=== PATIENT | female | born 1990 | race Caucasian/White ===

== ENCOUNTER → 2020-04-25 10:49 | Outpatient (CLI) | payer BC, SELFPAY ==
--- NOTE | ~2020-04-25 | US_ITS ---
EXAMINATION: US thyroid DATE: 04/25/2020 11:54 INDICATION: Nontoxic single thyroid nodule TECHNIQUE: Multiple ultrasound images of the thyroid were obtained. COMPARISON: 04/09/2019 FINDINGS: The right thyroid lobe measures 6.8 x 2.5 x 2.6 cm. The left thyroid lobe measures 6.8 x 2.8 x 2.1 c m. Diffuse heterogeneous decreased echogenicity with coarsened echotexture throughout the thyroid. T here is a more homogeneous wider than tall 2.5 cm solid nodule at the junction of the third isthmus a nd right thyroid isoechoic to normal thyroid echogenicity and without internal echogenic foci consist ent with smooth margins (TI-RADS 3, mildly suspicious , FNA if >=2.5 cm, annual followup is >1.5 cm). No other thyroid nodules identified. IMPRESSION: 1. No significant change in a 2.5 cm TI RADS 3 right thyroid nodule with previous biopsy on 09/26/2018 demonstrating benign follicular nodule . 2. Enlarged heterogeneous thyroid with appearance suggesting Stone's thyroiditis. Reviewed, dictated and finalized at location B. IMPRESSION: 1. No significant change in a 2.5 cm TI RADS 3 right thyroid nodule with previo us biopsy on 09/26/2018 demonstrating benign follicular nodule . 2. Enlarged heterogeneous thyroid with appearance suggesting Stone's thyroi ditis.
== END ==
PROVIDERS: PCP Physician Assistant; Visit Provider Otolaryngology
DX: E04.1 Nontoxic single thyroid nodule (principal)
CPT/HCPCS: 76536

== ENCOUNTER → 2021-04-11 14:01 | Outpatient (CLI) | payer BC, SELFPAY ==
--- NOTE | ~2021-04-11 | US_ITS ---
EXAMINATION: US thyroid DATE: 04/11/2021 14:21 INDICATION: Nontoxic single thyroid nodule. TECHNIQUE: Multiple ultrasound images of the thyroid were obtained. COMPARISON: Ultrasound 04/25/2020, 09/09/2018 FINDINGS: The right thyroid lobe measures 6.8 x 2.5 x 2.0 cm. The left thyroid lobe measures 6.5 x 2.2 x 2.1 c m. The thyroid is diffusely heterogeneous and hypoechoic with normal vascularity. In the right thyro id isthmus, there is a 2.9 cm solid, hypoechoic, byjtz-yriy-urys nodule with smooth margin without ec hogenic foci (TI-RADS TR4). IMPRESSION: 1. 2.9 cm thyroid nodule, increased from 2.0 cm on 09/26/2018 when biopsy was consistent with benign f ollicular nodule. Consider rebiopsy. 2. Chronically heterogeneous thyroid, likely chronic lymphocytic (Stone) thyroiditis. Reviewed, dictated and finalized at location A. IMPRESSION: 1. 2.9 cm thyroid nodule, increased from 2.0 cm on 09/26/2018 when biopsy was co nsistent with benign follicular nodule. Consider rebiopsy. 2. Chronically heterogeneous thyroid, likely chronic lymphocytic (Stone) th yroiditis.
== END ==
PROVIDERS: PCP Physician Assistant; Visit Provider Otolaryngology
DX: E04.1 Nontoxic single thyroid nodule (principal)
CPT/HCPCS: 76536

== ENCOUNTER 2022-05-14 01:11 | Day surgery (SDC) | payer BC, SELFPAY ==
[2022-04-10 11:54] VITALS: BMI 31.6
--- NOTE | 2022-04-22 10:59 | SUR.PREOP ---
[id number] REGARDING [address] ZAPIEN'S UNAVAILABILITY FOR HER PROCEDURE TOMORROW. INSTRUCTED PATIENT TO RESUME NORMAL DIET. INFORMED PATIENT THAT THE DOCTOR'S OFFICE WOULD BE CALLING TO RESCHEDULE. PATIENT VOICED UNDERSTANDING.
[2022-05-14 08:25] VITALS: BP 130/76; PULSE 104; RESP 16; TEMP 36.3; O2SAT 100; BMI 31.2
[2022-05-14] MEDS: LACTATED RINGERS 1,000 ML 150 ML IV CONT (08:34)
--- NOTE | 2022-05-14 08:55 | WPDANESEPPF ---
Anes - Initial Pre Proc Eval Procedure: Operation Date: 05/14/22 09:30 Proposed Procedures p Colonoscopy - Jak Duvall MD Date/Time: 05/14/22 08:55 Surgeon: Jak Duvall MD Pre Op Diagnosis: hematochezia Patient Data Age: 31 Gender: F Height: 1.65 m Weight: 85.2 kg Last Vital Signs Temp 97.3 F L 05/14/22 08:25 Pulse 104 H 05/14/22 08:25 Resp 16 05/14/22 08:25 BP 130/76 05/14/22 08:25 Pulse Ox 100 05/14/22 08:25 O2 Del Method Room Air 05/14/22 08:25 Allergies Allergy/AdvReac Type Severity Reaction Status Date / Time No Known Allergies Allergy Verified 05/14/22 08:24 Home Medications Medication Instructions Recorded Confirmed Type L norgest/E estradiol-E estrad 1 tablet PO DAILY 04/10/22 05/14/22 History 0.15 mg-30 mcg (84)/10 mcg(7) tabs,3mos (Amethia) bupropion HCl 150 mg 24 hr tablet, 150 mg PO DAILY 04/10/22 05/14/22 History extended release cetirizine 10 mg tablet (Zyrtec) 10 mg PO DAILY 04/10/22 05/14/22 History cyclobenzaprine 5 mg tablet 5 mg PO Q6H PRN Pain 04/10/22 05/14/22 History doxycycline monohydrate 50 mg 100 mg PO DAILY 04/10/22 05/14/22 History tablet fluticasone propionate 50 2 spray intranasal DAILY 04/10/22 05/14/22 History mcg/actuation nasal spray,suspension levothyroxine 100 mcg tablet 100 mcg PO DAILY 04/10/22 05/14/22 History (Synthroid) spironolactone 100 mg tablet 100 mg PO DAILY 04/10/22 05/14/22 History Patient hx anesthesia problems: none Family hx anesthesia problems: none Results Review: All pre-operative results and documents have been reviewed as part of the pre-operative evaluation. REPLACED BY [facility] Past Medical History Medical History Depression Eye problem History of back problems Hypothyroidism Surgical History Surgical History H/O colonoscopy H/O LEEP (02/18/20) History of hysteroscopy (02/18/20) History of tonsillectomy Family History Family History Father Acute myocardial infarction Grandparent Malignant neoplasm of skin Maternal grandmother Social History Social History (Updated 04/16/22 @ 13:35 by CLARISA Gusman) Smoking status: Never smoker Alcohol intake: current Alcohol use details: occasionally - socially Substance use: never Substance use type: does not use Living arrangements: with family Additional living arrangements comments: 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 Gender identity (if verbalized by the patient): Female Sexual Orientation (if Verbalized by the Patient): Straight or Heterosexual Spiritual care concerns: No Anes - Eval Final PreProcedure Day of Procedure 05/14/22 08:55 Patient weight: obese Heart: regular rate and rhythm Lungs: clear to auscultation Airway: Mallampati scale class II Neurological: alert and oriented Last oral intake: >/= 8 hours ASA classification: II Emergent: no Anesthetic plan: proceed Anesthesia type and monitoring: general GIVS and standard monitoring Results Review: All pre-operative results and documents have been reviewed as part of the pre-operative evaluation. Informed Consent: The patient's anesthetic plan and its attendant risks and benefits were discussed with the patient/family/POA. Questions were solicited and answers provided to the satisfaction of the patient/family/POA.
--- NOTE | 2022-05-14 09:03 | PM.HPGS ---
History of Present Illness History of Present Illness Consent: Risks, benefits, and alternatives have been discussed and questions answered. Patient agrees to proceed with procedure. Chief complaint: hematochezia Narrative: Zohra Chávez is a 31 year old female with intermittent rectal bleeding, had colonoscopy 8 years ago but diagnosed with lactose intolerance. Review of Systems Constitutional: Constitutional: Denies headache(s) and Denies weakness Eyes: Eyes: Denies blurry vision ENT: Reports Normal hearing present, Denies headache(s) and Denies neck pain Cardiovascular: Cardiovascular: Denies chest pain and Denies dyspnea Respiratory: Respiratory: Denies dyspnea Gastrointestinal: Gastrointestinal: Reports no additional gastrointestinal complaints Genitourinary: Genitourinary: Denies dysuria Musculoskeletal: Musculoskeletal: Denies neck pain Integumentary/Breasts: Skin/Breast: Denies dry skin Neurologic: Reports Normal hearing present, Denies headache(s) and Denies weakness Psychiatric: Psychiatric: Denies anxiety Endocrine: Endocrine: Denies change in body appearance Hematologic/Lymphatic: Hematologic/Lymphatic: Denies easy bleeding Allergic/Immunologic: Allergic/Immunologic: Denies urticaria [facility] Past Medical History Medical History (Updated 05/14/22 @ 09:04 by Jak Duvall MD) Depression Eye problem History of back problems Hypothyroidism Rectal bleeding Surgical History Surgical History H/O colonoscopy H/O LEEP (02/18/20) History of hysteroscopy (02/18/20) History of tonsillectomy Family History Family History Father Acute myocardial infarction Grandparent Malignant neoplasm of skin Maternal grandmother Social History Social History (Updated 04/16/22 @ 13:35 by CLARISA Gusman) Smoking status: Never smoker Alcohol intake: current Alcohol use details: occasionally - socially Substance use: never Substance use type: does not use Living arrangements: with family Additional living arrangements comments: 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 Gender identity (if verbalized by the patient): Female Sexual Orientation (if Verbalized by the Patient): Straight or Heterosexual Spiritual care concerns: No Meds Home Medications and Allergies Home Medications Medication Instructions Recorded Confirmed Type L norgest/E estradiol-E estrad 1 tablet PO DAILY 04/10/22 05/14/22 History 0.15 mg-30 mcg (84)/10 mcg(7) tabs,3mos (Amethia) bupropion HCl 150 mg 24 hr tablet, 150 mg PO DAILY 04/10/22 05/14/22 History extended release cetirizine 10 mg tablet (Zyrtec) 10 mg PO DAILY 04/10/22 05/14/22 History cyclobenzaprine 5 mg tablet 5 mg PO Q6H PRN Pain 04/10/22 05/14/22 History doxycycline monohydrate 50 mg 100 mg PO DAILY 04/10/22 05/14/22 History tablet fluticasone propionate 50 2 spray intranasal DAILY 04/10/22 05/14/22 History mcg/actuation nasal spray,suspension levothyroxine 100 mcg tablet 100 mcg PO DAILY 04/10/22 05/14/22 History (Synthroid) spironolactone 100 mg tablet 100 mg PO DAILY 04/10/22 05/14/22 History Allergies Allergy/AdvReac Type Severity Reaction Status Date / Time No Known Allergies Allergy Verified 05/14/22 08:24 Vital Signs Vital Signs - 24 hr 05/14/22 08:25 Temperature 97.3 F L Pulse Rate 104 H Respiratory Rate 16 Blood Pressure 130/76 Pulse Oximetry 100 Oxygen Delivery Room Air Exam Const: General: comfortable and no acute distress HENMT: Face/Nose/Sinus: Normal nares present Eyes: General: appearance normal, both eyes and all related structures Neck: Neck: no JVD Resp: Auscultation: clear to auscultation bilaterally Cardio: Rate: regular rate Rhythm: regular rhythm GI: Inspection: non-distended GI Palp: Yes Soft to
[2022-05-14 09:19] VITALS: BP 105/75; PULSE 94; RESP 18; O2SAT 98
[2022-05-14 09:29] VITALS: BP 106/73; PULSE 86; RESP 18; O2SAT 100
[2022-05-14 09:39] VITALS: BP 108/72; PULSE 70; RESP 18; O2SAT 100
== END 2022-05-14 09:48 | disposition home or self-care (01) ==
PROVIDERS: PCP Physician Assistant; Visit Provider Internal Medicine Gastroenterology
PROC: 0DJD8ZZ Inspection of Lower Intestinal Tract, Via Natural or Artificial Opening Endoscopic (ICD-10-PCS; CPT 45378; principal; 2022-05-14 09:30)
DX: K62.5 Hemorrhage of anus and rectum (principal); K64.1 Second degree hemorrhoids; K64.4 Residual hemorrhoidal skin tags; E03.9 Hypothyroidism, unspecified; F32.A Depression, unspecified; E66.9 Obesity, unspecified; Z68.31 Body mass index [BMI] 31.0-31.9, adult
CPT/HCPCS: 45378; J2704; J7120

== ENCOUNTER 2023-08-12 17:48 | Emergency (ER) | payer BC, SELFPAY ==
--- NOTE | 2023-08-12 17:51 | ED.URI ---
HPI - URI/Sore Throat General Chief Complaint: Upper Respiratory Infection Stated Complaint: Sore Throat;Chills;Bodyaches Time Seen by Provider: 08/12/23 17:50 Source: patient Mode of arrival: ambulatory Limitations: no limitations History of Present Illness HPI Narrative: Zohra is a 33-year-old female patient presenting to the clinic today with complaints sore throat, body aches, nasal congestion, and chills x5 days. She reports she felt feverish at the beginning of her symptoms. MD elicited complaint: sore throat and nasal congestion Related Data Home Medications Medication Instructions Recorded Confirmed cetirizine 10 mg tablet (Zyrtec) 10 mg PO DAILY 04/10/22 08/12/23 fluticasone propionate 50 2 spray intranasal DAILY 04/10/22 08/12/23 mcg/actuation nasal spray,suspension levothyroxine 100 mcg tablet 100 mcg PO DAILY 04/10/22 08/12/23 (Synthroid) Allergies Allergy/AdvReac Type Severity Reaction Status Date / Time No Known Allergies Allergy Verified 08/12/23 18:02 Review of Systems Review of Systems: Pertinent positives per HPI. Patient denies any fever, rash, headache, visual changes, dizziness, shortness of breath, chest pain, palpitations, nausea, vomiting, diarrhea, constipation, abdominal pain, or any urinary issues. COUNT INCLUDES THE [facility] Past Medical History Medical History Depression Eye problem History of back problems Hypothyroidism Rectal bleeding Surgical History Surgical History H/O colonoscopy (05/01/22) normal H/O LEEP (02/18/20) History of hysteroscopy (02/18/20) History of tonsillectomy Family History Family History Father Acute myocardial infarction Grandparent Malignant neoplasm of skin Maternal grandmother Social History Social History Smoking status: Never smoker Second hand tobacco smoke exposure: No Alcohol intake: current Alcohol use details: occasionally - socially 1-2 x month Substance use: never Substance use type: does not use Do You Feel Safe in your Home?: Yes Lack of Transportation: No Lack of Food: Never True Current Housing: I Have Housing Concerned About Future Housing: No Difficulty Paying Gas/Electric Bills: No Difficulty Paying for Meds: No Currently Unemployed: No Education: Trade/Vocational Certificate Difficulty w/ Childcare or Family Care: No Living arrangements: other Additional living arrangements comments: Occupation/Education: occupation 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 There is no relevant family history pertinent to the patient complaint. Exam Narrative: General: Well-developed, well nourished, in no apparent distress Head: Normocephalic, atraumatic Eyes: Pupils equally round and reactive to light bilaterally, EOM intact, sclera and conjunctive clear, no discharge, lids normal Ears: TMs intact and clear, ear canals clear, no drainage, grossly hearing normal. Nose: Nares patent, clear discharge, no inflammation, no sinus tenderness. Mouth: Oral pharynx red without lesions or masses, good dentition, MMM. Neck: Supple, trachea midline, no enlargement of anterior or posterior cervical nodes, no thyroid masses or goiter palpable. Cardio: Regular rate and rhythm, s1 and s2 normal, no murmur appreciated. Resp: Clear to auscultation bilaterally, no rhonchi, rales, wheezing or rubs Course Course Emergency Course: Portions of this record may hav
[2023-08-12 17:59] VITALS: BP 125/86; PULSE 94; RESP 16; TEMP 36.9; O2SAT 99
== END 2023-08-12 19:01 | disposition home or self-care (01) ==
PROVIDERS: Emergency Provider Nurse Practitioner Family; PCP Physician Assistant
DX: B34.9 Viral infection, unspecified (principal); J06.9 Acute upper respiratory infection, unspecified; J02.9 Acute pharyngitis, unspecified; E03.9 Hypothyroidism, unspecified
CPT/HCPCS: 87081; 87880; 99213; G0463

== ENCOUNTER 2024-05-05 11:08 | Outpatient (CLI) | payer BC, SELFPAY ==
[2024-05-05 12:25] LABS: Beta HCG Quantitative 30.76 mIU/ML
== END 2024-05-05 11:09 | disposition home or self-care (01) ==
LOC: ANHLAB 11:09
PROVIDERS: PCP Physician Assistant; Visit Provider Obstetrics & Gynecology
DX: N92.6 Irregular menstruation, unspecified (principal)
CPT/HCPCS: 36415; 84702

== ENCOUNTER 2024-05-07 11:12 | Outpatient (CLI) | payer BC, SELFPAY ==
[2024-05-07 12:01] LABS: Beta HCG Quantitative 85.95 mIU/ML
== END 2024-05-07 11:13 | disposition home or self-care (01) ==
LOC: ANHLAB 11:13
PROVIDERS: PCP Physician Assistant; Visit Provider Obstetrics & Gynecology
DX: N92.6 Irregular menstruation, unspecified (principal)
CPT/HCPCS: 36415; 84702

== ENCOUNTER 2024-05-21 11:16 | Outpatient (CLI) | payer BC, SELFPAY | END 2024-05-21 11:17 | disposition home or self-care (01) | LOC: ANHLAB 11:17 | PROVIDERS: PCP Physician Assistant; Visit Provider Obstetrics & Gynecology | DX: N91.0 Primary amenorrhea (principal) | CPT/HCPCS: 36415; 84702 ==

== ENCOUNTER 2024-05-25 11:42 | Outpatient (CLI) | payer BC, SELFPAY ==
[2024-05-25 13:37] LABS: Basophils Percent Auto 0.6 % (0.2-1.2); Eosinophils Absolute Auto 0.1 K/mm3 (0-0.3); Eosinophils Percent Auto 0.9 % (0-4.4); Hematocrit 39.9 % (37.0-47.0); Hemoglobin 13.3 g/dL (12.0-15.0); Immature Granulocyte Absolute 0.02 K/mm3 (0.00-0.031); Immature Granulocyte Percent A 0.3 % (0-0.5); Lymphocytes Absolute Auto 1.61 K/mm3 (0.9-3.2); Lymphocytes Percent Auto 23.1 % (18.3-44.2); Mean Corpuscular HGB Conc 33.3 g/dl (32-36); Mean Corpuscular Hemoglobin 30.9 pg (26-34); Mean Corpuscular Volume 92.6 fl (80-100); Mean Platelet Volume 11.5 fl (7.4-10.4); Monocytes Absolute Auto 0.4 K/mm3 (0.1-0.6); Monocytes Percent Auto 5.3 % (2.6-8.5); Neutrophils Absolute Auto 4.9 K/mm3 (1.3-6.7); Neutrophils Percent Auto 69.8 % (45.5-73.1); Platelet Count Result 156 k/mm3 (150-375); Red Blood Count 4.31 M/mm3 (4.2-5.4); Red Cell Distribution Width 13.7 % (11.5-14.5)
[2024-05-25 13:50] LABS: Glucose 1 Hour PP 50gm Dose 176 mg/dL
[2024-05-25 14:12] LABS: Free T4 Free Thyroxine 1.34 ng/mL (0.78-2.19)
[2024-05-25 14:27] LABS: Hepatitis B Surface Antigen Negative (Negative)
[2024-05-25 14:29] LABS: HIV 1/2 Ab P24 Ag Result Negative (Negative)
[2024-05-25 16:11] LABS: Rubella IgG Antibody > 110.0 IU/ML
[2024-05-26 07:47] LABS: Rapid Plasma Reagin Non-Reactive (NonReactive)
[2024-05-26 16:28] LABS: CMV IgG Antibody <0.60 U/mL
[2024-06-01 07:28] LABS: Testosterone Total 55
[2024-06-01 07:30] LABS: Testosterone Free 3
== END 2024-05-25 11:43 | disposition home or self-care (01) ==
LOC: ANHLAB 11:43
PROVIDERS: PCP Physician Assistant; Visit Provider Obstetrics & Gynecology
DX: O99.280 Endocrine, nutritional and metabolic diseases complicating pregnancy, unspecified trimester (principal); Z3A.00 Weeks of gestation of pregnancy not specified
CPT/HCPCS: 36415; 81220; 81329; 82947; 84402; 84403; 84439; 84443; 85025; 86592; 86644; 86703; 86747; 86762; 86787; 86850; 86900; 86901; 87086; 87340; G0432

== ENCOUNTER 2024-06-04 03:24 | Day surgery (SDC) | payer OTHER, SELFPAY ==
[2024-06-03 13:38] VITALS: BMI 33.3
--- NOTE | 2024-06-03 13:53 | PC.NURSE ---
Report to the Outpatient Waiting Room, entrance under the green pavilion located off [facility], at time _0800 on date _06/04/24 . Planned Procedure Time: _1000 .? Time changes happen often and if your time is changed the preop area will call you the afternoon before. - You and your visitor will be asked to self-screen and do not enter if you have any COVID symptoms. Please call surgeon if you need to reschedule. - A mask is optional within the hospital at this time. Patients may have clear liquids (water, carbonated beverages, clear teas, apple juice) until 3 hours prior to surgery with a maximum of 20 ounces. - No food from midnight until time of surgery and no smoking. This includes no chewing gum, candy or mints. - Infants may have breast milk until 4 hours before surgery, infant formula 6 hours prior to surgery. - Children will be allowed to drink immediately following surgery.? If applicable, please bring a bottle or sippy cup to assist with drinking. Juice, water, soda, and popsicles are readily available.? For infants on formula, please bring formula the day of surgery.? Pacifiers are allowed. Take only the following medications with a SIP of water on the morning of surgery: __Synthroid DO NOT STOP ANY OF YOUR OTHER PRESCRIPTION MEDICATIONS PRIOR TO SURGERY EXCEPT THE FOLLOWING Medications to discontinue per physician _DHA_ Please no make-up, nail ugandan, hairspray, perfume, deodorant, or body powder the day of surgery.? No jewelry (including any body piercings) or valuables the day of surgery, leave them at home.? Please take a shower or bath the night before, or the morning of, surgery with an antibacterial soap.? Wear comfortable, loose fitting clothing.? Children are encouraged to wear pajamas. - Jewelry must be removed prior to entering the operating room.? Rings and piercings that are not removed may be cut off. - The hospital will not accept responsibility for valuables.? - Please leave all valuables, including medications, at home the day of surgery. If you are going home after surgery, a licensed speedboat driver must drive you home.? - NO public transportation without another adult if you receive anesthesia. - We recommend that an adult stay with you for 24 hours following discharge. - We also recommend that you do not drive, make important decision, drink alcoholic beverages, or take any drugs that were not prescribed by your health care provider for at least 24 hours after your discharge time. For Pediatric surgeries, we recommend two adults accompany the child home. Follow any additional instructions given to you from your surgeon. Telephone instructions given to and asked if any additional questions and then verbalized understanding. Patient advised to call surgeon office or pre surgery nurse liaison [phone] if any additional questions.
--- NOTE | 2024-06-04 07:13 | WPDHPUPDATE1 ---
History and Physical Update Update Date/Time: 06/04/24 07:13 Assessment: 1. Missed Plan: 1. Suction curettage History and Physical has been reviewed, including an updated exam of the patient. There are NO changes in the patient's condition. Risks, benefits, and alternatives have been discussed and questions answered. Patient agrees to proceed with procedure.
[2024-06-04 09:08] VITALS: BP 110/62; PULSE 82; TEMP 36.6; O2SAT 100; BMI 33.3
[2024-06-04] MEDS: ACETAMINOPHEN 500 MG TABLET 1000 MG PO (09:11)
[2024-06-04] MEDS: LACTATED RINGERS 1,000 ML 30 ML IV CONT (09:11)
--- NOTE | 2024-06-04 09:27 | WPDANESEPPF ---
Anes - Initial Pre Proc Eval Procedure: Operation Date: 06/04/24 10:00 Proposed Procedures p Suction Dilation and Currettage - Ashwin Logan MD Date/Time: 06/04/24 09:27 Surgeon: Ashwin Logan MD Pre Op Diagnosis: Missed Ab Patient Data Age: 34 Gender: F Height: 1.65 m Weight: 90.81 kg Last Vital Signs Temp 36.6 C 06/04/24 09:08 Pulse 82 06/04/24 09:08 BP 110/62 06/04/24 09:08 Pulse Ox 100 06/04/24 09:08 O2 Del Method Room Air 06/04/24 09:08 Allergies Allergy/AdvReac Type Severity Reaction Status Date / Time No Known Allergies Allergy Verified 05/22/24 09:24 Home Medications Medication Instructions Recorded Confirmed Type cetirizine 10 mg tablet (Zyrtec) 10 mg PO DAILY 04/10/22 06/03/24 History fluticasone propionate 50 2 spray intranasal DAILY PRN 04/10/22 06/03/24 History mcg/actuation nasal Allergy Symptoms spray,suspension docosahexaenoic acid 200 mg 200 mg PO DAILY 04/27/24 06/03/24 History capsule ( DHA) levothyroxine 112 mcg tablet 112 mcg PO DAILY 06/03/24 06/03/24 History (Synthroid) Patient hx anesthesia problems: none Family hx anesthesia problems: none Results Review: All pre-operative results and documents have been reviewed as part of the pre-operative evaluation. [facility] Past Medical History Medical History Abnormal glucose tolerance in Depression Eye problem History of back problems Hypothyroidism Rectal bleeding Thyroid disease Surgical History Surgical History H/O colonoscopy (05/01/22) normal H/O LEEP (02/18/20) History of hysteroscopy (02/18/20) History of tonsillectomy Family History Family History Father Acute myocardial infarction Grandparent Malignant neoplasm of skin Maternal grandmother Mother Uterine cancer, Onset Age: 72 Social History Social History Smoking status: Never smoker Second hand tobacco smoke exposure: No Alcohol intake: current Alcohol use details: occasionally - socially 1-2 x month Substance use: never Substance use type: does not use Do You Feel Safe in your Home?: Yes Lack of Transportation: No Lack of Food: Never True Current Housing: I Have Housing Concerned About Future Housing: No Difficulty Paying Gas/Electric Bills: No Difficulty Paying for Meds: No Currently Unemployed: No Education: Trade/Vocational Certificate Difficulty w/ Childcare or Family Care: No Living arrangements: with family Additional living arrangements comments: 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/Education: occupation 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 Gender identity (if verbalized by the patient): Female Sexual Orientation (if Verbalized by the Patient): Straight or Heterosexual Spiritual care concerns: No Anes - Eval Final PreProcedure Day of Procedure 06/04/24 09:27 Patient weight: obese Heart: regular rate and rhythm Lungs: clear to auscultation Airway: Mallampati scale class II Neurological: alert and oriented Last oral intake: >/= 8 hours ASA classification: II Emergent: no Anesthetic plan: proceed Anesthesia type and monitoring: general GIVS and standard monitoring Results Review: All pre-operative results and documents have been reviewed as part of the pre-operative evaluation. Informed Consent: The patient's anesthetic plan and its attendant risks and benefits were discussed with the patient/family/POA. Questions were solicited and answers provided to the satisfaction of the patient/family/POA.
--- NOTE | 2024-06-04 09:52 | W.PM.PROC2 ---
Procedure Note - Detailed Date of Procedure 06/04/24 Pre-op Diagnosis Missed Post-op Diagnosis Same Procedure Performed Suction curettage Surgeon Ashwin Logan MD Anesthesia MAC Findings Moderate amount of products of conception Description of Procedure Patient prepped and draped usual manner for this procedure. Cervix was dilated to allow an 8mm curette to be placed. This was then placed and using suction the entire to the endometrial cavity was inspected and tissue was removed. Sharp curette throughout with no remaining tissue noted. Suction was passed 1 last time and no bleeding and no tissue of significance. At this point the procedure was considered terminated and the patient was sent to recovery room in stable condition. Estimated Blood Loss 50 Drains No Packing No Pathology Yes Complications No immediate complications Condition Stable Disposition PACU [facility] Billing Surgery - Charge Forward: Surgery Billing
[2024-06-04 09:56] VITALS: BP 116/78; PULSE 97; RESP 12; O2SAT 100
[2024-06-04 10:21] VITALS: BP 108/72; PULSE 92; RESP 16; O2SAT 100
[2024-06-04] MEDS: oxyCODONE HCL (*CRX) 5 MG TAB IR PO (10:21)
[2024-06-04 10:39] VITALS: BP 110/66; PULSE 81; RESP 16; O2SAT 99
== END 2024-06-04 10:40 | disposition home or self-care (01) ==
PROVIDERS: PCP Physician Assistant; Visit Provider Obstetrics & Gynecology
PROC: (CPT 59820; principal; 2024-06-04 10:00)
DX: O02.1 Missed abortion (principal); E03.9 Hypothyroidism, unspecified
CPT/HCPCS: 59820; 88305; A9270; J2003; J2250; J2270; J2704; J7120

== ENCOUNTER 2024-12-07 12:17 | Outpatient (CLI) | payer OTHER, SELFPAY ==
[2024-12-07 13:11] LABS: Beta HCG Quantitative 253.99 mIU/ML
--- OUTSIDE RECORDS SUMMARY | 2024-12-07 13:34 | XMS_ITS | Encounter Summary ---
Author Organization [facility] Address [address] [place] [address] Phone Care Team Providers Care Steward/Stewardess Banquet Name Role Phone Unknown, Notinfile Primary Care Provider Unavail able Encounter Details Date Type Department Care Team (Latest Contact Info) Description 09/26/2018 Orders Only [facility] Scanning, Provider Social History Tobacco Use Types Packs/Day Years Used Date Smoking Tobacco: Never Assessed Comments Unknown Sex and Gender Information Value Date Recorded Sex Assigned at Not on file Legal Sex Female 3:08 PM CDT Gender Identity Female 05/27/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 Sexual Orientation Straight 05/27/2021 3: 04 PM 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
--- OUTSIDE RECORDS SUMMARY | 2024-12-07 13:34 | XMS_ITS | Data Portability ---
Author Organization [facility] [employer], Main Office Address [address] [place] [address] Assessment No assessment recorded. Plan of Treatment Reminders Order Date Submit Date Provider Last Modified By Organization Details Last Modified Time Details Appointments None recorded. Lab CMP, serum or plasma [employer] [facility], [address], [place], [address], 3 09:15:46 lipid panel, serum 023 [employer] [facility], [address], [place], [address], 3 09:15:45 vitamin B12 + folate, serum or blood 023 [employer] [facility], [address], [place], [address], 3 09:15:50 HbA1c (hemoglob in A1c), blood 023 [employer] [facility], [address], [place], [address], 3 09:15:48 TSH + free T4, serum 023 023 [employer] [facility], [address], [place], [address], 3 09:15:45 T3, free, serum or plasma 023 023 [employer] [facility], [address], [place], [address], 3 09:15:48 iron + TIBC + ferritin, serum [facility]BY [facility], [address], [place], [address], 3 09:15:43 CBC w/ auto diff [place] [facility], [address], [place], [address], 3 09:15:49 Referral None recorded. Procedures None recorded. Surgeries None recorded. Imaging None recorded. Medication Orders None recorded. Patient TargetsNo targets recorded. Patient InstructionsNo instructions recorded. Reason for Referral None Reported. Results Created Date Observation Date Name Description Value Unit Range Abnormal Flag Note LastModifiedBy Organization Detail LastModifiedTime 03/13/2003/14/2021 VITAM IN B12/F OLATE , SERUM PANEL vitamin B12 350 pg/mL 200-11 00 normal Pleas e Note: Altho ugh the refer ence range for vitam in B12 is 200-1 100 pg/mL , it has been repor charmaine that betwe en 5 and 10% of patie nts with value s betwe en 200 and 400 pg/mL may exper ience neuro psych iatri c and hemat ologi c abnor malit ies due to occul t B12 defic iency ; less than 1% of patie nts with value s above 400 pg/mL will have sympt oms. Not Available [facility] [address] [place], [address], 03/14/2021 13:23:04 03/13/2003/14/2021 VITAM IN B12/F OLATE , SERUM PANEL folate, serum 17.9 NG/mL normal Refer ence Range Low: <3.4 Borde rline : 3.4-5 .4 Richelle l: >5.4 Not Available [facility] - [address], [address], 03/14/2021 13:23:04 03/13/2003/14/2021 CBC (INCL UDES DIFF/ PLT) white blood cell count 6.4 thous and/u L 3.8-10 .8 normal Not Available [address], [address], 03/14/2021 13:23:03 03/13/2003/14/2021 CBC (INCL UDES DIFF/ PLT) red blood cell count 4.67 shade on/uL 3.80-5 .10 normal Not Available [facility] [address], [address], 03/14/2021 13:23:03 03/13/2003/14/2021 CBC (INCL UDES DIFF/ PLT) hemoglobin 14.6 g/dL 11.7-1 5.5 normal Not Available [address], [address], 03/14/2021 13:23:03 03/13/2003/14/2021 CBC (INCL UDES DIFF/ PLT) hematocrit 43.9 % 35.0-4 5.0 normal Not Available [address], [address], 03/14/2021 13:23:03 03/13/2003/14/2021 CBC (INCL UDES DIFF/ PLT) MCV 94.0 fL 80.0-1 00.0 normal Not Available [facility] [address], [address], 03/14/2021 13:23:03 03/13/2003/14/2021 CBC (INCL UDES DIFF/ PLT) MCH 31.3 pg 27.0-3 3.0 normal Not Available [facility] [address], [address], 03/14/2021 13:23:03 03/13/20 21 03/14/2021 CBC (INCL UDES DIFF/ PLT) MCHC 33.3 g/dL 32.0-3 6.0 normal Not Available [address], [address], 03/14/2021 13:23:03 03/13/20 21 03/14/2021 CBC (INCL UDES DIFF/ PLT) RDW 12.7 % 11.0-1 5.0 normal Not Available [address], [address], 03/14/2021 13:23:03 03/13/2003/14/2021 CBC (INCL UDES DIFF/ PLT) platelet count 177 thous and/u L 140-40 0 normal Not Available [address], [address], 03/14/2021 13:23:03 03/13/20 21 03/14/2021 CBC (INCL UDES DIFF/ PLT) MPV 11.8 fL 7.5-12 .5 normal Not Available [address], [address], 03/14/2021 13:23:03 03/13/20 21 03/14/2021 CBC (INCL UDES DIFF/ PLT) absolute neutrophils 4122 cells /uL 1500-7 800 normal Not Available [address], [address], 03/14/2021 13:23:03 03/13/2003/14/2021 CBC (INCL UDES DIFF/ PLT) absolute lymphocytes 1760 cells /uL 850-39 00 normal Not Available [address], [address], 03/14/2021 13:23:03 03/13/20 21 03/14/2021 CBC (INCL UDES DIFF/ PLT) absolute monocytes 339 cells /uL 200-95 0 normal Not Available [facility] [address] [address], [place], [address], 03/14/2021 13:23:03 03/13/20 21 03/14/2021 CBC (INCL UDES DIFF/ PLT) absolute eosinophils 147 cells /uL 15-500 normal Not Available [facility] [address], [address], 03/14/2021 13:23:03 03/13/20 21 03/14/2021 CBC (INCL UDES DIFF/ PLT) absolute basophils 32 cells /uL 0-200 normal Not Available [facility] [address], [address], 03/14/2021 13:23:03 03/13/20 21 03/14/2021 CBC (INCL UDES DIFF/ PLT) neutrophils 64.4 % normal Not Available [facility] [address], [address], 03/14/2021 13:23:03 03/13/20 21 03/14/2021 CBC (INCL UDES DIFF/ PLT) lymphocytes 27.5 % normal Not Available [facility] [address], [address], 03/14/2021 13:23:03 03/13/20 21 03/14/2021 CBC (INCL UDES DIFF/ PLT) monocytes 5.3 % normal Not Available [facility] [address], [address], 03/14/2021 13:23:03 03/13/20 21 03/14/2021 CBC (INCL UDES DIFF/ PLT) eosinophils 2.3 % normal Not Available [facility] [address], [address], 03/14/2021 13:23:03 03/13/20 21 03/14/2021 CBC (INCL UDES DIFF/ PLT) basophils 0.5 % normal Not Available [facility] [address], [address], 03/14/2021 13:23:03 03/13/20 21 03/14/2021 T3, FREE T3, free 3.3 pg/mL 2.3-4. 2 normal Not Available [address], [address], 03/14/2021 13:23:02 03/13/20 21 03/14/2021 COMPR EHENS MERE METAB OLIC PANEL glucose 97 mg/dL 65-99 normal Fasti ng refer ence inter lizbet Not Available [address], [address], 03/14/2021 13:23:01 03/13/20 21 03/14/2021 COMPR EHENS MERE METAB OLIC PANEL urea nitrogen (BUN) 12 mg/dL 7-25 normal Not Available [address], [address], 03/14/2021 13:23:01 03/13/20 21 03/14/2021 COMPR EHENS MERE METAB OLIC PANEL creatinine 0.79 mg/dL 0.50-1 .10 normal Not Available [address], [address], 03/14/2021 13:23:01 03/13/20 21 03/14/2021 COMPR EHENS MERE METAB OLIC PANEL eGFR non-afr. trinidadian 102 mL/mi n/1.7 3m2 > or = 60 normal Not Available [address], [address], 03/14/2021 13:23:01 03/13/20 21 03/14/2021 COMPR EHENS MERE METAB OLIC PANEL eGFR 118 mL/mi n/1.7 3m2 > or = 60 normal Not Available [address], [address], 03/14/2021 13:23:01 03/13/20 21 03/14/2021 COMPR EHENS MERE METAB OLIC PANEL BUN/creatini ne ratio not applic able (calc ) 6-22 Not Available [address], [address], 03/14/2021 13:23:01 03/13/20 21 03/14/2021 COMPR EHENS MERE METAB OLIC PANEL sodium 140 mmol/ L 135-14 6 normal Not Available [address], [address], 03/14/2021 13:23:01 03/13/20 21 03/14/2021 COMPR EHENS MERE METAB OLIC PANEL potassium 4.4 mmol/ L 3.5-5. 3 normal Not Available [address], [address], 03/14/2021 13:23:01 03/13/20 21 03/14/2021 COMPR EHENS MERE METAB OLIC PANEL chloride 107 mmol/ L 98-110 normal Not Available [address], [address], 03/14/2021 13:23:01 03/13/20 21 03/14/2021 COMPR EHENS MERE METAB OLIC PANEL carbon dioxide 24 mmol/ L 20-32 normal Not Available [address], [address], 03/14/2021 13:23:01 03/13/20 21 03/14/2021 COMPR EHENS MERE METAB OLIC PANEL calcium 9.5 mg/dL 8.6-10 .2 normal Not Available [address], [address], 03/14/2021 13:23:01 03/13/20 21 03/14/2021 COMPR EHENS MERE METAB OLIC PANEL protein, total 7.1 g/dL 6.1-8. 1 normal Not Available [address] [address] [place], [address], 03/14/2021 13:23:01 03/13/2003/14/2021 COMPR EHENS MERE METAB OLIC PANEL albumin 4.3 g/dL 3.6-5. 1 normal Not Available [address], [address], 03/14/2021 13:23:01 03/13/2003/14/2021 COMPR EHENS MERE METAB OLIC PANEL globulin 2.8 g/dL_ (calc ) 1.9-3. 7 normal Not Available [address], [address], 03/14/2021 13:23:01 03/13/2003/14/2021 COMPR EHENS MERE METAB OLIC PANEL albumin/glob ulin ratio 1.5 (calc ) 1.0-2. 5 normal Not Available [address] [address] [place], [address], 03/14/2021 13:23:01 03/13/2003/14/2021 COMPR EHENS MERE METAB OLIC PANEL bilirubin, total 0.6 mg/dL 0.2-1. 2 normal Not Available [address], [address], 03/14/2021 13:23:01 03/13/2003/14/2021 COMPR EHENS MERE METAB OLIC PANEL alkaline phosphatase 83 U/L 31-125 normal Not Available [address] [address] [place], [address], 03/14/2021 13:23:01 03/13/2003/14/2021 COMPR EHENS MERE METAB OLIC PANEL AST 15 U/L 10-30 normal Not Available [address] [address] [place], [address], 03/14/2021 13:23:01 03/13/20 21 03/14/2021 COMPR EHENS MERE METAB OLIC PANEL ALT 14 U/L 6-29 normal Not Available [address], [address], 03/14/2021 13:23:01 03/13/20 21 03/14/2021 LIPID PANEL WITH RATIO S cholesterol, total 164 mg/dL <200 normal Not Available [address], [address], 03/14/2021 13:23:01 03/13/2003/14/2021 LIPID PANEL WITH RATIO S HDL cholesterol 48 mg/dL > or = 50 low Not Available [address], [address], 03/14/2021 13:23:01 03/13/20 21 03/14/2021 LIPID PANEL WITH RATIO S triglyceride s 102 mg/dL <150 normal Not Available [address], [address], 03/14/2021 13:23:01 03/13/2003/14/2021 LIPID PANEL WITH RATIO S LDL-choleste rol 96 mg/dL _(shawna c) normal Refer ence range : <100 Wanda able range <100 mg/dL for prima ry preve ntion ; <70 mg/dL for patie nts with CHD or diabe tic patie nts with > or = 2 CHD risk facto rs. LDL-C is now calcu lated using the Delma n-Hop kins calcu latio n, which is a valid ated novel jose juan briceño than the Fried jackie equat ion in the estim ation of LDL-C . Delma walker SS et al. CARMENZA. 2013; 310(1 9): 2061- 2068 (http ://ed ucati on.Qu Joesph import.ios. com/f aq/FA Q164) Not Available [address], [address], 03/14/2021 13:23:01 03/13/2003/14/2021 LIPID PANEL WITH RATIO S chol/HDLC ratio 3.4 (calc ) <5.0 normal Not Available [address], [address], 03/14/2021 13:23:01 03/13/2003/14/2021 LIPID PANEL WITH RATIO S LDL/HDL ratio 2.0 (calc ) Below avera ge Risk: <2.34 Candia ge Risk: 2.35- 4.12 Moder ate Risk: 4.13- 5.56 High Risk: >5.57 Not Available [address], [address], 03/14/2021 13:23:01 03/13/2003/14/2021 LIPID PANEL WITH RATIO S non HDL cholesterol 116 mg/dL _(shawna c) <130 normal For patie nts with diabe shahla plus 1 major ASCVD risk facto r, treat ing to a non-H DL-C goal of <100 mg/dL (LDL- C of <70 mg/dL ) is michael kellogg optio n. Not Available [address], [address], 03/14/2021 13:23:01 03/13/2003/14/2021 TSH+F REE T4 TSH 1.28 mIU/L normal Refer ence Range > or = 20 Years 0.40- 4.50 Pregn paloma Range s First trime ster 0.26- 2.66 Secon d trime ster 0.55- 2.73 Third trime ster 0.43- 2.91 Not Available [address], [address], 03/14/2021 13:22:59 03/13/2003/14/2021 TSH+F REE T4 T4, free 1.4 NG/dL 0.8-1. 8 normal Not Available [address], [address], 03/14/2021 13:22:59 03/13/2003/14/2021 IRON, TIBC AND SALINAS TIN PANEL iron, total 121 mcg/d L 40-190 normal Not Available [address], [address], 03/14/2021 13:22:57 03/13/20 21 03/14/2021 IRON, TIBC AND SALINAS TIN PANEL iron binding capacity 378 mcg/d L_(ca lc) 250-45 0 normal Not Available [address], [address], 03/14/2021 13:22:57 03/13/20 21 03/14/2021 IRON, TIBC AND SALINSA TIN PANEL % saturation 32 %_(ca lc) 16-45 normal Not Available [address], [address], 03/14/2021 13:22:57 03/13/20 21 03/14/2021 IRON, TIBC AND SALINAS TIN PANEL ferritin 22 NG/mL 16-154 normal Not Available [address], [address], 03/14/2021 13:22:57 02/27/20 22 02/27/2022 CBC (INCL UDES DIFF/ PLT) white blood cell count 5.4 thous and/u L 3.8-10 .8 normal Not Available [address], [address], 02/27/2022 05:55:42 02/27/20 22 02/27/2022 CBC (INCL UDES DIFF/ PLT) red blood cell count 4.87 shade on/uL 3.80-5 .10 normal Not Available [address], [address], 02/27/2022 05:55:42 02/27/20 22 02/27/2022 CBC (INCL UDES DIFF/ PLT) hemoglobin 11.4 g/dL 11.7-1 5.5 low Not Available [address], [address], 02/27/2022 05:55:42 02/27/20 22 02/27/2022 CBC (INCL UDES DIFF/ PLT) hematocrit 36.7 % 35.0-4 5.0 normal Not Available [facility] [address], [address], 02/27/2022 05:55:42 02/27/20 22 02/27/2022 CBC (INCL UDES DIFF/ PLT) MCV 75.4 fL 80.0-1 00.0 low Not Available [address], [address], 02/27/2022 05:55:42 02/27/20 22 02/27/2022 CBC (INCL UDES DIFF/ PLT) MCH 23.4 pg 27.0-3 3.0 low Not Available [employer] [address], [address], 02/27/2022 05:55:42 02/27/20 22 02/27/2022 CBC (INCL UDES DIFF/ PLT) MCHC 31.1 g/dL 32.0-3 6.0 low Not Available [address], [address], 02/27/2022 05:55:42 02/27/20 22 02/27/2022 CBC (INCL UDES DIFF/ PLT) RDW 17.1 % 11.0-1 5.0 high Not Available [employer] [address], [address], 02/27/2022 05:55:42 02/27/20 22 02/27/2022 CBC (INCL UDES DIFF/ PLT) platelet count 210 thous and/u L 140-40 0 normal Not Available [address], [address], 02/27/2022 05:55:42 02/27/20 22 02/27/2022 CBC (INCL UDES DIFF/ PLT) MPV 11.3 fL 7.5-12 .5 normal Not Available [address], [address], 02/27/2022 05:55:42 02/27/20 22 02/27/2022 CBC (INCL UDES DIFF/ PLT) absolute neutrophils 3127 cells /uL 1500-7 800 normal Not Available [address], [address], 02/27/2022 05:55:42 02/27/20 22 02/27/2022 CBC (INCL UDES DIFF/ PLT) absolute lymphocytes 1701 cells /uL 850-39 00 normal Not Available [address], [address], 02/27/2022 05:55:42 02/27/20 22 02/27/2022 CBC (INCL UDES DIFF/ PLT) absolute monocytes 432 cells /uL 200-95 0 normal Not Available [address], [address], 02/27/2022 05:55:42 02/27/20 22 02/27/2022 CBC (INCL UDES DIFF/ PLT) absolute eosinophils 103 cells /uL 15-500 normal Not Available [employer] [address], [address], 02/27/2022 05:55:42 02/27/20 22 02/27/2022 CBC (INCL UDES DIFF/ PLT) absolute basophils 38 cells /uL 0-200 normal Not Available [employer] [address], [address], 02/27/2022 05:55:42 02/27/20 22 02/27/2022 CBC (INCL UDES DIFF/ PLT) neutrophils 57.9 % normal Not Available [address], [address], 02/27/2022 05:55:42 02/27/20 22 02/27/2022 CBC (INCL UDES DIFF/ PLT) lymphocytes 31.5 % normal Not Available [address], [address], 02/27/2022 05:55:42 02/27/20 22 02/27/2022 CBC (INCL UDES DIFF/ PLT) monocytes 8.0 % normal Not Available [address], [address], 02/27/2022 05:55:42 02/27/20 22 02/27/2022 CBC (INCL UDES DIFF/ PLT) eosinophils 1.9 % normal Not Available [address], [address], 02/27/2022 05:55:42 02/27/20 22 02/27/2022 CBC (INCL UDES DIFF/ PLT) basophils 0.7 % normal Not Available [address], [address], 02/27/2022 05:55:42 02/27/2002/27/2022 T3, FREE T3, free 3.1 pg/mL 2.3-4. 2 normal Not Available [address], [address], 02/27/2022 05:55:41 02/27/20 22 02/27/2022 COMPR EHENS MERE METAB OLIC PANEL glucose 88 mg/dL 65-99 normal Fasti ng refer ence inter lizbet Not Available [address], [address], 02/27/2022 05:55:41 02/27/20 22 02/27/2022 COMPR EHENS MERE METAB OLIC PANEL urea nitrogen (BUN) 16 mg/dL 7-25 normal Not Available [address], [address], 02/27/2022 05:55:41 02/27/20 22 02/27/2022 COMPR EHENS MERE METAB OLIC PANEL creatinine 0.79 mg/dL 0.50-0 .96 normal Not Available [employer] [address], [address], 02/27/2022 05:55:41 02/27/20 22 02/27/2022 COMPR EHENS MERE METAB OLIC PANEL eGFR 104 mL/mi n/1.7 3m2 > or = 60 normal The eGFR is based on the CKD-E PI 2020 equat ion. To calcu late the new eGFR from a previ ous Creat inine or Cysta tin C resul t, go to https ://misty lopez.saravanan aragon.o iwona/lory valladares s/ kdoqi /gfr% 5Fcal culat or Not Available [address], [address], 02/27/2022 05:55:41 02/27/20 22 02/27/2022 COMPR EHENS MERE METAB OLIC PANEL BUN/creatini ne ratio not applic able (calc ) 6-22 Not Available [employer] [address], [address], 02/27/2022 05:55:41 02/27/20 22 02/27/2022 COMPR EHENS MERE METAB OLIC PANEL sodium 141 mmol/ L 135-14 6 normal Not Available [employer] [address], [address], 02/27/2022 05:55:41 02/27/20 22 02/27/2022 COMPR EHENS MERE METAB OLIC PANEL potassium 4.8 mmol/ L 3.5-5. 3 normal Not Available [address], [address], 02/27/2022 05:55:41 02/27/20 22 02/27/2022 COMPR EHENS MERE METAB OLIC PANEL chloride 112 mmol/ L 98-110 high Not Available [address], [address], 02/27/2022 05:55:41 02/27/20 22 02/27/2022 COMPR EHENS MERE METAB OLIC PANEL carbon dioxide 24 mmol/ L 20-32 normal Not Available [address], [address], 02/27/2022 05:55:41 02/27/20 22 02/27/2022 COMPR EHENS MERE METAB OLIC PANEL calcium 9.2 mg/dL 8.6-10 .2 normal Not Available [address], [address], 02/27/2022 05:55:41 02/27/20 22 02/27/2022 COMPR EHENS MERE METAB OLIC PANEL protein, total 6.6 g/dL 6.1-8. 1 normal Not Available [address], [address], 02/27/2022 05:55:41 02/27/20 22 02/27/2022 COMPR EHENS MERE METAB OLIC PANEL albumin 4.0 g/dL 3.6-5. 1 normal Not Available [facility] [address], [address], 02/27/2022 05:55:41 02/27/20 22 02/27/2022 COMPR EHENS MERE METAB OLIC PANEL globulin 2.6 g/dL_ (calc ) 1.9-3. 7 normal Not Available [address], [address], 02/27/2022 05:55:41 02/27/20 22 02/27/2022 COMPR EHENS MERE METAB OLIC PANEL albumin/glob ulin ratio 1.5 (calc ) 1.0-2. 5 normal Not Available [address], [address], 02/27/2022 05:55:41 02/27/20 22 02/27/2022 COMPR EHENS MERE METAB OLIC PANEL bilirubin, total 0.3 mg/dL 0.2-1. 2 normal Not Available [address], [address], 02/27/2022 05:55:41 02/27/20 22 02/27/2022 COMPR EHENS MERE METAB OLIC PANEL alkaline phosphatase 77 U/L 31-125 normal Not Available [address], [address], 02/27/2022 05:55:41 02/27/20 22 02/27/2022 COMPR EHENS MERE METAB OLIC PANEL AST 15 U/L 10-30 normal Not Available [address], [address], 02/27/2022 05:55:41 02/27/20 22 02/27/2022 COMPR EHENS MERE METAB OLIC PANEL ALT 22 U/L 6-29 normal Not Available [address], [address], 02/27/2022 05:55:41 02/27/20 22 02/27/2022 LIPID PANEL WITH RATIO S cholesterol, total 154 mg/dL <200 normal Not Available [address], [address], 02/27/2022 05:55:40 02/27/20 22 02/27/2022 LIPID PANEL WITH RATIO S HDL cholesterol 54 mg/dL > or = 50 normal Not Available [address], [address], 02/27/2022 05:55:40 02/27/20 22 02/27/2022 LIPID PANEL WITH RATIO S triglyceride s 68 mg/dL <150 normal Not Available [address], [address], 02/27/2022 05:55:40 02/27/20 22 02/27/2022 LIPID PANEL WITH RATIO S LDL-choleste rol 85 mg/dL _(shawna c) normal Refer ence range : <100 Wanda able range <100 mg/dL for prima ry preve ntion ; <70 mg/dL for patie nts with CHD or diabe tic patie nts with > or = 2 CHD risk facto rs. LDL-C is now calcu lated using the Delma n-Hop kins calcu latdayron n, which is a valid ated novel jose juan colon r accur acy than the Fried jackie equat ion in the estim ation of LDL-C . Delma walker SS et al. CARMENZA. 2013; 310(1 9): 2061- 2068 (http ://ed ucati on.Qu charisseUserTesting. com/f aq/FA Q164) Not Available [address], [address], 02/27/2022 05:55:40 02/27/20 22 02/27/2022 LIPID PANEL WITH RATIO S chol/HDLC ratio 2.9 (calc ) <5.0 normal Not Available [address], [address], 02/27/2022 05:55:40 02/27/20 22 02/27/2022 LIPID PANEL WITH RATIO S LDL/HDL ratio 1.6 (calc ) Below avera ge Risk: <2.34 Candia ge Risk: 2.35- 4.12 Moder ate Risk: 4.13- 5.56 High Risk: >5.57 Not Available [address], [address], 02/27/2022 05:55:40 02/27/20 22 02/27/2022 LIPID PANEL WITH RATIO S non HDL cholesterol 100 mg/dL _(shawna c) <130 normal For patie nts with diabe shahla plus 1 major ASCVD risk facto r, treat ing to a non-H DL-C goal of <100 mg/dL (LDL- C of <70 mg/dL ) is consi daned a thera peuti c optio n. Not Available [address], [address], 02/27/2022 05:55:40 02/27/2002/27/2022 TSH+F REE T4 TSH 2.25 mIU/L normal Refer ence Range > or = 20 Years 0.40- 4.50 Pregn paloma Range s First trime ster 0.26- 2.66 Secon d trime ster 0.55- 2.73 Third trime ster 0.43- 2.91 Not Available [address], [address], 02/27/2022 05:55:39 02/27/2002/27/2022 TSH+F REE T4 T4, free 1.1 NG/dL 0.8-1. 8 normal Not Available [address], [address], 02/27/2022 05:55:39 04/09/2004/10/2023 IRON, TIBC AND SALINAS TIN PANEL iron, total 68 mcg/d L 40-190 normal Not Available [facility] [address], [address], 04/10/2023 09:15:43 04/09/2004/10/2023 IRON, TIBC AND SALINAS TIN PANEL iron binding capacity 346 mcg/d L_(ca lc) 250-45 0 normal Not Available [address], [address], 04/10/2023 09:15:43 04/09/2004/10/2023 IRON, TIBC AND SALINAS TIN PANEL % saturation 20 %_(ca lc) 16-45 normal Not Available [address], [address], 04/10/2023 09:15:43 04/09/20 23 04/10/2023 IRON, TIBC AND SALINAS TIN PANEL ferritin 33 NG/mL 16-154 normal Not Available [address], [address], 04/10/2023 09:15:43 04/09/2004/10/2023 TSH+F REE T4 TSH 0.21 mIU/L low Refer ence Range > or = 20 Years 0.40- 4.50 Pregn paloma Range s First trime ster 0.26- 2.66 Secon d trime ster 0.55- 2.73 Third trime ster 0.43- 2.91 Not Available [address], [address], 04/10/2023 09:15:44 04/09/2004/10/2023 TSH+F REE T4 T4, free 1.5 NG/dL 0.8-1. 8 normal Not Available [address], [address], 04/10/2023 09:15:44 04/09/2004/10/2023 LIPID PANEL WITH RATIO S cholesterol, total 165 mg/dL <200 normal Not Available [address], [address], 04/10/2023 09:15:45 04/09/2004/10/2023 LIPID PANEL WITH RATIO S HDL cholesterol 48 mg/dL > or = 50 low Not Available [address], [address], 04/10/2023 09:15:45 04/09/2004/10/2023 LIPID PANEL WITH RATIO S triglyceride s 90 mg/dL <150 normal Not Available [address], [address], 04/10/2023 09:15:45 04/09/2004/10/2023 LIPID PANEL WITH RATIO S LDL-choleste rol 99 mg/dL _(shawna c) normal Refer ence range : <100 Wanda able range <100 mg/dL for prima ry preve ntion ; <70 mg/dL for patie nts with CHD or diabe tic patie nts with > or = 2 CHD risk facto rs. LDL-C is now calcu lated using the Delma n-Hop kins shayanu john n, which is a valid ated novel jose juan au darlene r accur acy than the [employer] jackie equat ion in the estim ation of LDL-C . Delma walker SS et al. CARMENZA. 2013; 310(1 9): 2061- 2068 (http ://ed ucati on.Qu Joesph sofatutor. com/f aq/FA Q164) Not Available [address] [place], [address], 04/10/2023 09:15:45 04/09/2004/10/2023 LIPID PANEL WITH RATIO S chol/HDLC ratio 3.4 (calc ) <5.0 normal Not Available [address], [address], 04/10/2023 09:15:45 04/09/2004/10/2023 LIPID PANEL WITH RATIO S LDL/HDL ratio 2.1 (calc ) Below avera ge Risk: <2.34 Candia ge Risk: 2.35- 4.12 Moder ate Risk: 4.13- 5.56 High Risk: >5.57 Not Available [address] [address] [facility] [place], [address], 04/10/2023 09:15:45 04/09/2004/10/2023 LIPID PANEL WITH RATIO S non HDL cholesterol 117 mg/dL _(shawna c) <130 normal For patie nts with diabe shahla plus 1 major ASCVD risk facto r, treat ing to a non-H DL-C goal of <100 mg/dL (LDL- C of <70 mg/dL ) is michael kellogg optio n. Not Available [address] [address] [place], [address], 04/10/2023 09:15:45 04/09/2004/10/2023 COMPR EHENS MERE METAB OLIC PANEL glucose 80 mg/dL 65-99 normal Fasti ng refer ence inter lizbet Not Available [address], [address], 04/10/2023 09:15:46 04/09/2004/10/2023 COMPR EHENS MERE METAB OLIC PANEL urea nitrogen (BUN) 13 mg/dL 7-25 normal Not Available [address] [address] [place], [address], 04/10/2023 09:15:46 04/09/2004/10/2023 COMPR EHENS MERE METAB OLIC PANEL creatinine 0.66 mg/dL 0.50-0 .97 normal Not Available [address], [address], 04/10/2023 09:15:46 04/09/2004/10/2023 COMPR EHENS MERE METAB OLIC PANEL eGFR 121 mL/mi n/1.7 3m2 > or = 60 normal Not Available [address], [address], 04/10/2023 09:15:46 04/09/2004/10/2023 COMPR EHENS MERE METAB OLIC PANEL BUN/creatini ne ratio SEE NOTE: (calc ) 6-22 Not Repor charmaine: BUN and Creat inine are withi n refer ence range . Not Available [address] [place], [address], 04/10/2023 09:15:46 04/09/2004/10/2023 COMPR EHENS MERE METAB OLIC PANEL sodium 139 mmol/ L 135-14 6 normal Not Available [address] [address], [address], 04/10/2023 09:15:46 04/09/2004/10/2023 COMPR EHENS MERE METAB OLIC PANEL potassium 4.0 mmol/ L 3.5-5. 3 normal Not Available [address], [address], 04/10/2023 09:15:46 04/09/2004/10/2023 COMPR EHENS MERE METAB OLIC PANEL chloride 106 mmol/ L 98-110 normal Not Available [address], [address], 04/10/2023 09:15:46 04/09/2004/10/2023 COMPR EHENS MERE METAB OLIC PANEL carbon dioxide 24 mmol/ L 20-32 normal Not Available [address], [address], 04/10/2023 09:15:46 04/09/2004/10/2023 COMPR EHENS MERE METAB OLIC PANEL calcium 9.0 mg/dL 8.6-10 .2 normal Not Available [address], [address], 04/10/2023 09:15:46 04/09/2004/10/2023 COMPR EHENS MERE METAB OLIC PANEL protein, total 6.7 g/dL 6.1-8. 1 normal Not Available [address], [address], 04/10/2023 09:15:46 04/09/2004/10/2023 COMPR EHENS MERE METAB OLIC PANEL albumin 4.2 g/dL 3.6-5. 1 normal Not Available [address], [address], 04/10/2023 09:15:46 04/09/2004/10/2023 COMPR EHENS MERE METAB OLIC PANEL globulin 2.5 g/dL_ (calc ) 1.9-3. 7 normal Not Available [address], [address], 04/10/2023 09:15:46 04/09/2004/10/2023 COMPR EHENS MERE METAB OLIC PANEL albumin/glob ulin ratio 1.7 (calc ) 1.0-2. 5 normal Not Available [address], [address], 04/10/2023 09:15:46 04/09/2004/10/2023 COMPR EHENS MERE METAB OLIC PANEL bilirubin, total 0.7 mg/dL 0.2-1. 2 normal Not Available [address], [address], 04/10/2023 09:15:46 04/09/2004/10/2023 COMPR EHENS MERE METAB OLIC PANEL alkaline phosphatase 96 U/L 31-125 normal Not Available [address], [address], 04/10/2023 09:15:46 04/09/2004/10/2023 COMPR EHENS MERE METAB OLIC PANEL AST 44 U/L 10-30 high Not Available [address], [address], 04/10/2023 09:15:46 04/09/2004/10/2023 COMPR EHENS MERE METAB OLIC PANEL ALT 113 U/L 6-29 high Not Available [address], [address], 04/10/2023 09:15:46 04/09/2004/10/2023 HEMOG LOBIN A1C hemoglobin A1C 4.9 %_of_ total _HGB <5.7 normal For the purpo se of star bird for the prese nce of diabe shahla: <5.7% Consi stent with the absen ce of diabe shahla 5.7-6 .4% Consi stent with incre ased risk for diabe shahla (pred iabet es) > or =6.5% Consi stent with diabe shahla This assay resul t is consi stent with a decre ased risk of diabe shahla. Curre ntly, no conse nsus exist s regedis au use of hemog lobin A1c for diagn osis of diabe shahla in child galindo. Accor ding to Ameri can Diabe shahla Assoc iatio n (ADA) guide lines , hemog lobin A1c <7.0% repre sents optim al contr ol in non-p regna nt diabe tic patie nts. Diffe rent metri cs may apply to speci fic patie nt popul ation s. [facility] ards of Medic al Care in Diabe shahla(A DA). Not Available [address] [address] [place], [address], 04/10/2023 09:15:47 04/09/2004/10/2023 T3, FREE T3, free 3.0 pg/mL 2.3-4. 2 normal Not Available [employer] [facility] [address] [address] [place], [address], 04/10/2023 09:15:48 04/09/2004/10/2023 CBC (INCL UDES DIFF/ PLT) white blood cell count 5.9 thous and/u L 3.8-10 .8 normal Not Available [facility] [address] [address] [place], [address], 04/10/2023 09:15:49 04/09/2004/10/2023 CBC (INCL UDES DIFF/ PLT) red blood cell count 4.40 shade on/uL 3.80-5 .10 normal Not Available [address], [address], 04/10/2023 09:15:49 04/09/2004/10/2023 CBC (INCL UDES DIFF/ PLT) hemoglobin 13.3 g/dL 11.7-1 5.5 normal Not Available [address], [address], 04/10/2023 09:15:49 04/09/2004/10/2023 CBC (INCL UDES DIFF/ PLT) hematocrit 38.7 % 35.0-4 5.0 normal Not Available [address], [address], 04/10/2023 09:15:49 04/09/2004/10/2023 CBC (INCL UDES DIFF/ PLT) MCV 88.0 fL 80.0-1 00.0 normal Not Available [address], [address], 04/10/2023 09:15:49 04/09/2004/10/2023 CBC (INCL UDES DIFF/ PLT) MCH 30.2 pg 27.0-3 3.0 normal Not Available [address], [address], 04/10/2023 09:15:49 04/09/2004/10/2023 CBC (INCL UDES DIFF/ PLT) MCHC 34.4 g/dL 32.0-3 6.0 normal Not Available [address], [address], 04/10/2023 09:15:49 04/09/2004/10/2023 CBC (INCL UDES DIFF/ PLT) RDW 12.8 % 11.0-1 5.0 normal Not Available [address] [place], [address], 04/10/2023 09:15:49 04/09/2004/10/2023 CBC (INCL UDES DIFF/ PLT) platelet count 162 thous and/u L 140-40 0 normal Not Available [address], [address], 04/10/2023 09:15:49 04/09/2004/10/2023 CBC (INCL UDES DIFF/ PLT) MPV 12.3 fL 7.5-12 .5 normal Not Available [address], [address], 04/10/2023 09:15:49 04/09/2004/10/2023 CBC (INCL UDES DIFF/ PLT) absolute neutrophils 3729 cells /uL 1500-7 800 normal Not Available [address], [address], 04/10/2023 09:15:49 04/09/2004/10/2023 CBC (INCL UDES DIFF/ PLT) absolute lymphocytes 1682 cells /uL 850-39 00 normal Not Available [address], [address], 04/10/2023 09:15:49 04/09/2004/10/2023 CBC (INCL UDES DIFF/ PLT) absolute monocytes 319 cells /uL 200-95 0 normal Not Available [address], [address], 04/10/2023 09:15:49 04/09/2004/10/2023 CBC (INCL UDES DIFF/ PLT) absolute eosinophils 130 cells /uL 15-500 normal Not Available [address], [address], 04/10/2023 09:15:49 04/09/2004/10/2023 CBC (INCL UDES DIFF/ PLT) absolute basophils 41 cells /uL 0-200 normal Not Available [address], [address], 04/10/2023 09:15:49 04/09/2004/10/2023 CBC (INCL UDES DIFF/ PLT) neutrophils 63.2 % normal Not Available [address], [address], 04/10/2023 09:15:49 04/09/2004/10/2023 CBC (INCL UDES DIFF/ PLT) lymphocytes 28.5 % normal Not Available [address], [address], 04/10/2023 09:15:49 04/09/2004/10/2023 CBC (INCL UDES DIFF/ PLT) monocytes 5.4 % normal Not Available [address], [address], 04/10/2023 09:15:49 04/09/2004/10/2023 CBC (INCL UDES DIFF/ PLT) eosinophils 2.2 % normal Not Available [address], [address], 04/10/2023 09:15:49 04/09/2004/10/2023 CBC (INCL UDES DIFF/ PLT) basophils 0.7 % normal Not Available [address], [address], 04/10/2023 09:15:49 04/09/2004/10/2023 VITAM IN B12/F OLATE , SERUM PANEL vitamin B12 817 pg/mL 200-11 00 normal Not Available [address], [address], 04/10/2023 09:15:50 04/09/2004/10/2023 VITAM IN B12/F OLATE , SERUM PANEL folate, serum 22.4 NG/mL normal Refer ence Range Low: <3.4 Borde rline : 3.4-5 .4 Richelle l: >5.4 Not Available [address], [address], 04/10/2023 09:15:50 07/08/19 24 07/09/2023 HEPAT IC FUNCT ION PANEL protein, total 7.0 g/dL 6.1-8. 1 normal Not Available [address], [address], 07/09/2023 02:19:54 07/08/1907/09/2023 HEPAT IC FUNCT ION PANEL albumin 4.5 g/dL 3.6-5. 1 normal Not Available [address], [address], 07/09/2023 02:19:54 07/08/19 24 07/09/2023 HEPAT IC FUNCT ION PANEL globulin 2.5 g/dL_ (calc ) 1.9-3. 7 normal Not Available [address], [address], 07/09/2023 02:19:54 07/08/1907/09/2023 HEPAT IC FUNCT ION PANEL albumin/glob ulin ratio 1.8 (calc ) 1.0-2. 5 normal Not Available [address], [address], 07/09/2023 02:19:54 07/08/19 24 07/09/2023 HEPAT IC FUNCT ION PANEL bilirubin, total 0.6 mg/dL 0.2-1. 2 normal Not Available [address], [address], 07/09/2023 02:19:54 07/08/1907/09/2023 HEPAT IC FUNCT ION PANEL bilirubin, direct 0.1 mg/dL < or = 0.2 normal Not Available [employer] [address], [address], 07/09/2023 02:19:54 07/08/19 24 07/09/2023 HEPAT IC FUNCT ION PANEL bilirubin, indirect 0.5 mg/dL _(shawna c) 0.2-1. 2 normal Not Available [address], [address], 07/09/2023 02:19:54 07/08/19 24 07/09/2023 HEPAT IC FUNCT ION PANEL alkaline phosphatase 90 U/L 31-125 normal Not Available [facility] [employer] [address], [address], 07/09/2023 02:19:54 07/08/19 24 07/09/2023 HEPAT IC FUNCT ION PANEL AST 23 U/L 10-30 normal Not Available [address], [address], 07/09/2023 02:19:54 07/08/19 24 07/09/2023 HEPAT IC FUNCT ION PANEL ALT 30 U/L 6-29 high Not Available [employer] [address], [address], 07/09/2023 02:19:54 07/08/19 24 07/09/2023 GGT GGT 20 U/L 3-50 normal Not Available [address], [address], 07/09/2023 02:20:01 04/13/20 21 04/11/2021 US, thyro id No observ ation record ed. [id number] [address], [place], [address], 08/29/2022 20:04:29 05/14/20 22 05/14/2022 diagn ostic colon oscop y (PROC ) No observ ation record ed. [id number] [facility] ([facility] [address], [place], [address], 08/29/2022 20:04:29 Result Notes None recorded. Problems Name Problem SNOMED Code Status Onset Date Resolution Date Notes Provider Name and Address Organization Details Recorded Time Loss of hair 506028944 Active 2021 Not Available [facility] 3 20:02:43 Low back pain 537177238 Active 2021 Not Available [facility] 3 20:02:43 Sleep disorder 74354477 Active 2021 Not Available [facility] 3 20:02:43 Hematochezia 389590515 Active 2021 Not Available [facility] 3 20:02:43 Hypothyroidis m 07406487 Active 2018 Not Available [facility] 3 20:02:43 Microcytic hypochromic anemia 47111247 Active 2021 Not Available [facility] 3 20:02:43 Allergic rhinitis 84822599 Active 2018 Not Available [facility] 3 20:02:43 Mild major depression 60331518 Active 2021 Not Available [facility] 3 20:02:43 Iron deficiency anemia 14828135 Active 2022 Not Available [facility] 3 20:02:44 Liver enzymes level above reference range 411905837 Active 2023 ANTON Joseph [address] [facility] [address], [place], [address] , [facility] 4 15:50:23 Problem Notes None recorded. 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 Procedure Notes None recorded. Medical Equipment None Reported. Allergies No known drug allergies Medications Name Sig Start Date Stop Date Status Note LastModified by Organization Details LastModified Time hydrocortis one-pramoxi ne 2.5 %-1 % rectal cream APPLY RECTALLY TO THE AFFECTED AREA EVERY DAY AT BEDTIME active Not Available Not Available No t Available meloxicam 15 mg tablet TAKE 1 TABLET BY MOUTH EVERY DAY AT DINNER as needed 04/08 completed Not Available Not Available Not Available ondansetron HCl 4 mg tablet TAKE 1 TABLET BY MOUTH EVERY 8 HOURS NEEDED 03/20 completed Not Available Not Available Not Available Synthroid 100 mcg tablet TAKE 1 TABLET EVERY MORNING FOR HYPOTHYRO IDISM 04/16 completed Not Available Not Available Not Available spironolact one 100 mg tablet active Not Available Not Available Not Available Cleocin 100 mg vaginal suppository Insert 1 supposito ry every day by vaginal route at bedtime for 3 days. 03/14 completed Not Available Not Available Not Available Anucort-HC 25 mg suppository UNWRAP AND INSERT 1 SUPPOSITO RY RECTALLY EVERY DAY AT BEDTIME 04/08 completed Not Available Not Available Not Available metronidazo le 500 mg tablet TK 1 T PO BID FOR 7 DAYS 04/25 completed Not Available Not Available Not Available oxycodone-a cetaminophe n 5 mg-325 mg tablet TK 1 T PO Q 6 H active Not Available Not Available No t Available Metrogel Vaginal 0.75 % (37.5 mg/5 gram) Insert 1 applicato rful every day by vaginal route. 03/14 completed Not Available Not Available Not Available Synthroid 75 mcg tablet TK 1 T PO QD IN THE MORNING 10/29 completed Not Available Not Available Not Available montelukast 10 mg tablet TAKE 1 TABLET BY MOUTH EVERY DAY IN THE MORNING active Not Available Not Available No t Available Synthroid 112 mcg tablet TAKE 1 TABLET EVERY DAY IN THE MORNING FOR HYPOTHYRO IDISM 2022 active Not Available Not Available Not Avai lable fluticasone propionate 50 mcg/actuati on nasal spray,suspe nsion INSTILL 1 SPRAY IEN BID 03/10 completed Not Available Not Available Not Available loratadine 10 mg tablet TK 1 T PO ONCE D PRN 03/10 completed Not Available Not Available Not Available cyclobenzap rine 5 mg tablet TAKE 1 TO 2 TABLETS BY MOUTH EVERY NIGHT AT BEDTIME 04/08 completed Not Available Not Available Not Available bupropion HCl XL 150 mg 24 hr tablet, extended release TAKE 1 TABLET BY MOUTH EVERY DAY IN THE MORNING 2022 active Not Available Not Available Not Avai lable Amethia 0.15 mg-30 mcg (84)/10 mcg(7) tablets,3 month dose pack Take 1 tablet every day by oral route. 04/08 completed Not Available Not Available Not Available Afluria Qd 2019- (36 mos up)(PF)60 mcg (15 mcg x4)/0.5 mL IM syringe ADM 0.5ML IM UTD active Not Available Not Available No t Available Vitals Date Recorded Body mass index (BMI) Body height Oxygen saturation Oxygen saturation in Arterial blood by Pulse oximetry Heart rate Respiratory rate Body temperature Body weight Systolic blood pressure Diastolic blood pressure Provider Name and Address Organization Details Last Updated DateTime 2 32.4 kg/m2 167.01 cm 98 % 98 % 94 /min 16 /min 98.1 [degF] 56932.8 8 g 118 mm[Hg] 78 mm[Hg] Not Available [facility] 3 20:02:26 Date Recorded Body mass index (BMI) Body height Oxygen saturation Oxygen saturation in Arterial blood by Pulse oximetry Heart rate Body temperature Body weight Systolic blood pressure Diastolic blood pressure Provider Name and Address Organization Details Last Updated DateTime 1 32.9 kg/m2 167.01 cm 99 % 99 % 98 /min 97.3 [degF] 35879.3 8 g 120 mm[Hg] 80 mm[Hg] Not Available [facility] 3 20:02:26 Date Recorded Body mass index (BMI) Body height Oxygen saturation Oxygen saturation in Arterial blood by Pulse oximetry Heart rate Respiratory rate Body temperature Body weight Systolic blood pressure Diastolic blood pressure Provider Name and Address Organization Details Last Updated DateTime 2 32.1 kg/m2 167.01 cm 98 % 98 % 86 /min 16 /min 97.5 [degF] 85361.1 3 g 122 mm[Hg] 80 mm[Hg] Not Available [employer] 3 20:02:27 Date Recorded Body height Provider Name an d Address Organization Details Last Updated DateTime 03/22/2023 167.01 cm CLARISA Ramirez [facility] [employer] [facility] 03/22/2023 11:02:57 Date Recorded Body height Body temperature Body mass index (BMI) Body weight Heart rate Oxygen saturation Oxygen saturation in Arterial blood by Pulse oximetry Systolic blood pressure Diastolic blood pressure Provider Name and Address Organization Details Last Updated DateTime 167.01 cm 97.2 [degF] 30.6 kg/m2 28916.3 7 g 84 /min 99 % 99 % 118 mm[Hg] 80 mm[Hg] Shyanne Calderon RN [facility] [employer] [facility] 3 11:23:22 Social History Question Answer Notes LastModified by Organizat ion Details LastModified Time Tobacco Smoking Status Never Smoker CLARISA Ramirez null, [facility] [employer] [facility] 03/22/2023 11:02:35 Do You Have An Advance Directive? No [id number] Information not available 08/29/2022 What Is Your Level Of Caffeine Consumption? Moderate [id number] Information not available 08/29/2022 In The 14 Days Before Symptom Onset, Have You Had Close Contact With A Laboratory-confirm ed COVID-19 While That Case Was Ill? No [email or web address] Information n ot available 03/22/2023 In The 14 Days Before Symptom Onset, Have You Had Close Contact With A Person Who Is Under Investigation For COVID-19 While That Person Was Ill? No [email or web address] Information not available 03/22/2023 What Type Of Diet Are You Following? REGULAR [id number] Information not available 08/29/2022 Have There Been Any Changes To Your Family Or Social Situation? No [email or web address] Information no t available 03/22/2023 Are There Any Guns Present In Your Home? Yes Information not available 03/22/2023 Do You Use Insect Repellent Routinely? No Information not available 03/22/2023 Do You Have A Medical Power Of Principal Electrical Engineer? No [email or web address] Information not available 03/22/2023 What Is Your Relationship Status? [id number] Information not available 08/29/2022 Do You Use Your Seat Belt Or Car Seat Routinely? Yes [email or web address] Information not available 03/22/2023 Do You Have Smoke And Carbon Monoxide Detectors In Your Home? Yes [email or web address] Information not available 03/22/2023 Do You Use Sunscreen Routinely? Yes [email or web address] Information not available 03/22/2023 Have You Recently Traveled Abroad? No [email or web address] Information not available 03/22/2023 Do You Have Any Dietary Restrictions? No [email or web address] Information not available 03/22/2023 Sex: Unknown Functional Status Question Answer Note LastModified by Organizat ion Details LastModified Time Do you use any illicit or recreational drugs? No [email or web address] Information not available 03/22/2023 Do you or have you ever used any other forms of tobacco or nicotine? No [email or web address] Information not available 03/22/2023 What is your level of alcohol consumption? Occasional [id number] Information not available 08/29/2022 What is your exercise level? Occasional [id number] Information not available 08/29/2022 Mental Status None recorded. Family History Relationship Description Onset Age of this Age Resolved Age Notes LastModified by Organization Details LastModified Time Father Myocardial infarction [id number] Not available 08/29/2022 20:01:16 Maternal Grandmother Malignant neoplasm of skin [email or web address] Not available 03/22 11:02:34 Medical History Condition Response EYE PROBLEMS Y OTHER # 1 Y BACK / NECK PROBLEMS Y Gynecological History Statement/Question Response Abnormal Pap Y Date of Last Pap 01/30/2021 Date of Last Pap Smear 01/25/2020 Current Control Method BCPs Age at Menarche 13 Date of LMP 12/04/2020 Obstetrics History GPAL:G 0 P 0 0 0 0 Immunizations Vaccine Type Date Status Note Provider Nam e and Address Organization Details Recorded Time Influenza, split virus, quadrivalent, preservative 9 completed Not Available [facility] 08/29/2022 20:04:22 Influenza, split virus, quadrivalent, PF 0 completed Not Available [facility] 08/29/2022 20:04:22 Past Encounters Encounter ID Performer Location Encounter Start Date Encounter Closed Date Diagnosis/Indication Diagnosis SNOMED-CT Code Diagnosis ICD10 Code Diagnosis Note [id number] [facility] ic_[facility] _ATHENA_M IGRATION_ DEFAULT_1 _1 , 01/30/2021 00:00:00 01/30/2021 12:21:36 [id number] ANTON Joseph [facility] [place] [address] [place] [address] 03/13/2021 00:00:00 03/30/2021 00:20:29 [id number] Sukhi Browne MD [facility] [place] [address] [place] [address] 02/21/2022 00:00:00 02/25/2022 09:00:13 [id number] ANTON Joseph [facility] [place] [address] [place] [address] 03/21/2022 00:00:00 03/26/2022 09:53:28 [id number] ANTON Joseph [facility] [place] [address] [place] [address] 03/22/2023 11:02:21 03/22/2023 11:12:22 [id number] ANTON Joseph [facility] [place] [address] [place] [address] 04/08/2023 11:17:41 04/08/2023 11:50:26 Adult health examination 161289249 Z00.01 annual wellness completed. All labs are due, fasting. Hypothyroidism 62192804 E03.9 on thyroid supplement . due for TFT panel to monitor dosing. Mild major depression 87 787127 F32.0 stable on bupropion XL 150mg daily. Discussed w/pt that she will need to come OFF medication prior to trying to conceive child. Iron defic iency anemia 53244523 D50.9 due for iron studies. colonoscop y completed and stable. Loss of hair 676565151 L 65.9 screening b12 and folate labs due Long-term drug therapy 032791556 Z79.899 routine cmp due Diabetes m ellitus screening 239705695 Z13.1 screening a1c due Cholesterol screening 27 3405348 Z13.220 fasting lipids due Health Concerns Section Related Observation LastModified by Organization Detai ls LastModified Time None Recorded Concern Status LastModified by Organization Details LastModified Time None Recorded Advance Directives Directive N: Payers Encounter Date Sequence Insurance Name Policy Number Policy Howard Covered Member ID Howard Member ID Guarantor Name 03/22/2023 1 [facility] (O) [id number] Zohra Chávez [id number] Zohra Chávez 04/08/2023 1 [facility] [id number] Zohra Chávez [id number] Zohra Chávez Notes Date Note Type Note Provider Name and Address Organization Details Recorded Time 03/13/20 21 text/ht ml Generic HPI TemplateReported bypatient.Notes:Pt also has c/o hair loss, for 6 months, says doesn't matter what shes doing she is always pulling out a lot of strandsHypothyroidismReported bypatient.Onset/Timing:better Context/Risk:normal thyroid levels; no history of head or neck radiation during childhood; no history of thyroid disease; no history of hypothyroidism; no history of hyperthyroidism; no excess iron exposure Exercisegets exercise Associated Symptoms:no cold intolerance; no heat intolerance; no weight loss; no weight gain; no double vision; no dry eyes; no hoarseness; no difficulty swallowing; no neck masses; no deepening of the voice; no fast heart rate; no increased blood pressure; no palpitations; no chest pain; no chest tightess or pressure; no constipation; no diarrhea; no vomiting; no decreased appetite; no loose stools; no irregular menstrual periods; no excessive sweating; no joint pain; no numbness; no tingling of the hands or feet; no dry skin; no tremor; no nervousness; no anxiety; no depression; no fatigue; no sleep difficulties; no skin changes; no hair changesSleep Apnea/snoring F/UReported bypatient.Quality:loud snoring;frequent breathing through the mouth Onset/Timing:new onset Severity:does not limit daily activities; no frequent sore throats resulting in excess missed days from school / work per year; no difficulty getting going in the morning; no awakening in the middle of the night with sore throat Location:no enlarged tonsils; no nasal passage blockage; no throat pain; no feeling of tightness in throat; no dryness of mouth; no chest congestion Context:no lack of adequate sleep; no shift work; not currently taking medication to help sleep; no recent weight gain; no recent upper respiratory infection; no recent sick contacts; not worse with environmental exposure; not worse with seasonal allergen exposure; no hypertension; normal sleep hours Aggravating factors:not worse during an upper respiratory infection (a cold); not worse when allergies are active Associated Symptoms:no morning headache; no awakening at night short of breath; no sweating heavily at night; no excessive sleepiness during the day; no suddenly falling asleep during the day; no napping; no impaired work performace; no nasal congestionNotes:Wakes up at least 8 times during the night Not Available [employer] 03/30/2021 00:20:29 02/22/20 22 text/ht ml Back Pain - GeneralReported bypatient.Location:pain radiating to the bilateral buttock(s) Quality:dull;aching Severity:worsening;moderate (5-7) Duration:intermittent; present for 1-6 months Timing:worse Context:overuse Alleviating Factors:rest Aggravating Factors:movement/positioning;sta nding Associated Symptoms:no fever; no weak limbs; no tingling; no numbness of the legs/feet; no incontinence; no shortness of breathDepressionReported bypatient.Quality:symptoms worse in the evening;symptoms worse during the day Severity:denies suicidal ideations; able to maintain relationships;interference with household activities Duration:frequent; symptoms lasting over 2 weeks Onset/Timing:gradual Context:no major life stressors Modifying Factors:social support Associated Symptoms:denies homicidal ideations; no significant weight gain; no significant weight loss; no visual/auditory hallucinations; no shortness of breath; no anxiety; maintaining functionality;emotional lability;depression;anhedonia;lo w self-esteem;decreased effectiveness/productivityHypoth yroidismReported bypatient.Quality:improving Duration:constant Onset/Timing:better Context/Risk:history of hypothyroidism Modifying Factors:medication Exercisegets exercise Associated Symptoms:weight gain ( lbs);depression Not Available [facility] 02/25/2022 09:00:13 03/21/20 22 text/ht ml Back Pain - GeneralReported bypatient.Location:pain radiating to the bilateral buttock(s) Quality:dull;aching Severity:improving;pain level 2/10;mild (1-4) Duration:intermittent; present for 1-6 months Timing:better Context:overuse Alleviating Factors:rest Aggravating Factors:movement/positioning;sta nding Associated Symptoms:no fever; no weak limbs; no tingling; no numbness of the legs/feet; no incontinence; no shortness of breathNotes:she is f/u after starting a muscle relaxer.DepressionReported bypatient.Quality:symptoms improved;symptoms worse in the evening;symptoms worse during the day Severity:denies suicidal ideations; able to maintain relationships; does not interfere with activities of daily living Duration:frequent; symptoms lasting over 2 weeks Onset/Timing:gradual Context:no major life stressors Modifying Factors:social support; medications as directed Associated Symptoms:denies homicidal ideations; no significant weight gain; no significant weight loss; no visual/auditory hallucinations; no shortness of breath; no anxiety; maintaining functionality;depression;anhedon ia;low self-esteemNotes:Pt is here for a f/u after starting wellbutrin. She states it is helping and she is doing good w/medication.Rectal BleedingReported bypatient.Quality:painless Severity:mild Duration:present for 1-6 months Timing:wax and wane Context:occurs with bowel movement;anemic Associated Symptoms:no straining; no diarrhea; no cramping Not Available [facility] 03/26/2022 09:53:28 03/22/20 23 text/ht ml Anxiety/DepressionReported bypatient.Severity:denies suicidal ideations; able to maintain relationships; does not interfere with activities of daily living Duration:symptoms lasting over 2 weeks Onset/Timing:still present Context:no major life stressors Associated Symptoms:denies homicidal ideations; no significant weight gain; no significant weight loss; no visual/auditory hallucinations; no delusions; no shortness of breathHypothyroidismReported bypatient.Quality:not changing Duration:constant Onset/Timing:still present Context/Risk:normal thyroid levels; no history of head or neck radiation during childhood; no history of thyroid disease; no history of hyperthyroidism; no excess iron exposure;history of hypothyroidism;female gender Modifying Factors:medication Exercisegets exercise Associated Symptoms:no cold intolerance; no heat intolerance; no weight loss; no weight gain; no double vision; no dry eyes; no hoarseness; no difficulty swallowing; no neck masses; no deepening of the voice; no fast heart rate; no increased blood pressure; no palpitations; no chest pain; no chest tightess or pressure; no constipation; no diarrhea; no vomiting; no decreased appetite; no loose stools; no irregular menstrual periods; no excessive sweating; no joint pain; no numbness; no tingling of the hands or feet; no dry skin; no tremor; no nervousness; no anxiety; no depression; no fatigue; no sleep difficulties; no skin changes; no hair changes Wellness ANTON Joseph [address] [address], [place], [address], [place] [facility] [employer] 03/28/2023 22:34:51 04/08/20 23 text/ht ml Anxiety/DepressionReported bypatient.Severity:denies suicidal ideations; able to maintain relationships; does not interfere with activities of daily living Context:no major life stressors Associated Symptoms:denies homicidal ideations; no significant weight gain; no significant weight loss; no visual/auditory hallucinations; no delusions; no shortness of breathHypothyroidismReported bypatient.Onset/Timing:better Context/Risk:normal thyroid levels; no history of head or neck radiation during childhood; no history of thyroid disease; no history of hypothyroidism; no history of hyperthyroidism; no excess iron exposure;history of hypothyroidism;female gender Exercisegets exercise Associated Symptoms:no cold intolerance; no heat intolerance; no weight loss; no weight gain; no double vision; no dry eyes; no hoarseness; no difficulty swallowing; no neck masses; no deepening of the voice; no fast heart rate; no increased blood pressure; no palpitations; no chest pain; no chest tightess or pressure; no constipation; no diarrhea; no vomiting; no decreased appetite; no loose stools; no irregular menstrual periods; no excessive sweating; no joint pain; no numbness; no tingling of the hands or feet; no dry skin; no tremor; no nervousness; no anxiety; no depression; no fatigue; no sleep difficulties; no skin changes; no hair changes wellness ANTON Joseph [address] [address], [place], [address], [facility] 04/30/2023 21:38:53 OBGyn Episode No OBEpisode recorded.
--- OUTSIDE RECORDS SUMMARY | 2024-12-07 13:34 | XMS_ITS | Referral Summary ---
Author Organization [facility] Address [address] [place] [address] Care Team Providers Care Rn Integrated Name Role Phone Unknown, Notinfile Primary Care Provider Unavail able Allergies No known active allergies Medications levothyroxine (Synthroid) 100 mcg tablet daily 03/01/20 21 Active Camrese 0.15 mg-30 mcg (84)/10 mcg (7) tablets,dose pack,3 month 03/13/20 21 Active mecobalamin, vitamin B12, (B12 Active) 1,000 mcg tablet,chewable Acti ve multivit with min-folic acid (Women's Multivitamin Gummies) 200 mcg tablet,chewable Acti ve cetirizine (ZyrTEC) 10 mg tablet Active fluticasone propionate (FLONASE) 50 mcg/actuation nasal spray Active buPROPion XL (WELLBUTRIN XL) 150 mg 24 hr tablet bupropion HCl XL 150 mg 24 hr tablet, extended release TAKE 1 TABLET BY MOUTH EVERY DAY IN THE MORNING Active doxycycline hyclate 50 mg tablet Take 50 mg by mouth daily 2 tablets daily 02/15/20 22 Active spironolactone (ALDACTONE) 100 mg tablet spironolactone 100 mg tablet 02/15/20 22 Active levothyroxine (SYNTHROID) 112 mcg tablet 05/01/20 22 Active Active Problems Problem Noted Date Diagnosed Date Thyroid nodule 05/30/2021 Assessment & Plan (06/18/2022 7:08 PM SECRET SERVICE AGENT): FNA x 2 benign Stable in size 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 up of benign and stable thyroid nodule Likely no much added after 5 years surveillance Patient is interested in some sort of follow up TFT followed by PCP regular and should aim for normal TSH Follow up US in 2 then 3-5 years if remain stable - this can be arrange here then with PCP moving forward if no planned intervention Assessment & Plan (05/30/2021 3:42 PM SECRET SERVICE AGENT): Will obtain outside images to review Plan FNA 06/13 if needed and after images are reviewed Primary hypothyroidism 05/30/2021 Assessment & Plan (05/30/2021 3:43 PM SECRET SERVICE AGENT): Normal TFT Continue Synthroid dose Hair loss unlikely explained by hypothyroidism given normal function Social History Tobacco Use Types Packs/Day Years Used Date Smoking Tobacco: Never Tobacco Cessation:Counseling Given: Not Answered Comments Unknown Sex and Gender Information Value Date Recorded Sex Assigned at Not on file Legal Sex Female 3:08 PM CDT Gender Identity Female 05/27/2021 3:04 PM SECRET SERVICE AGENT Sexual Orientation Straight 05/27/2021 3: 04 PM SECRET SERVICE AGENT Last Filed Vital Signs Vital Sign Reading Time Taken Comments Blood Pressure 112/79 06/18/2022 2:42 PM SECRET SERVICE AGENT Pulse 94 06/18/2022 2:42 PM SECRET SERVICE AGENT Temperature 36.7 C (98 F) 06/18/2022 2:42 PM SECRET SERVICE AGENT Respiratory Rate - - Oxygen Saturation - - Inhaled Oxygen Concentration - - Weight 88 kg (194 lb) 06/18/2022 2:42 PM SECRET SERVICE AGENT Height 165.1 cm (5' 5) 06/18/2022 2:42 PM SECRET SERVICE AGENT Body Mass Index 32.28 06/18/2022 2:42 PM SECRET SERVICE AGENT Plan of Treatment Not on file Insurance [facility] Care Teams Rn Integrated Relationship Specialty Start Date End Date Unknown, Notinfile PCP - General 06/13/22
--- OUTSIDE RECORDS SUMMARY | 2024-12-07 13:34 | XMS_ITS | Data Portability ---
[facility] Address [address] [place] [address] Assessment No assessment recorded. Plan of Treatment Reminders Order Date Submit Date Provider Last Modified By Organization Details Last Modified Time Details Appointments ANNUAL 30 2024 10:00A M ANTON Joseph Not available Not available Not available Lab lipid panel, serum 2023 024 [employer] [facility], [address], [place], [address], 02/18/2024 12:05:56 CMP, serum or plasma 2023 024 [employer] [facility], [address], [place], [address], 02/18/2024 12:05:57 CBC w/ auto diff 2023 024 [employer] [facility], [address], [place], [address], 02/18/2024 12:05:57 HbA1c (hemoglo bin A1c), blood 2023 024 [employer] [facility], [address], [place], [address], 02/18/2024 12:05:57 TSH + free T4, serum 2023 024 [email or web address] [facility], [address], [place], [address], 02/18/2024 12:05:56 T3, free, serum or plasma 2023 024 [email or web address] [facility], [address], [place], [address], 02/18/2024 12:05:57 insulin, serum 2023 024 [email or web address] [facility], [address], [place], [address], 02/18/2024 12:05:57 Referral None recorded . Procedures None recorded . Surgeries None recorded . Imaging None recorded . Medication Orders None recorded . Patient TargetsNo targets recorded. Patient Instructions Encounter Date Encounter Id Patient Instructions Last Modified By Organization Details Last Modified Time 02/10/2024 [id number] A healthy lifestyle: care instructions [email or web address] Not available 02/29/2024 17:44:16 Reason for Referral None Reported. Results Created Date Observation Date Name Description Value Unit Range Abnormal Flag Note LastModifiedBy Organization Detail LastModifiedTime Result Notes None recorded. Problems Name Problem SNOMED Code Status Onset Date Resolution Date Notes Provider Name and Address Organization Details Recorded Time Hypothyroidism 55437181 Active 2023 Irma Leija [facility], [place] - [facility] 4 15:54:10 Body mass index 30+ - obesity 190220253 Active 2023 ANTON Joseph Attn: Jm prieto,[address] [facility], [place], [address], [place] - [facility] 4 17:43:38 Long-term drug therapy Active 2023 ANTON Joseph Attn: Jm prieto,[address] [facility], [place], [address], [place] - [facility] 4 17:44:04 Obesity 464700339 Active 2023 ANTON Joseph Attn: Jm prieto,[address] [facility], [place], [address], [place] - [facility] 4 17:44:14 Problem Notes None recorded. Procedures Surgical History Date Name Laterality Status Provider Name and Address Organization Details Recorded Time [facility] 16:10:11 9 [facility] 16:09:36 Imaging Results None recorded. Procedure Notes None recorded. Medical Equipment None Reported. Allergies No known drug allergies Medications Name Sig Start Date Stop Date Status Note LastModified by Organization Details LastModified Time amoxicillin 500 mg capsule TAKE 1 CAPSULE BY MOUTH TWICE DAILY 02/09 completed Not Available Not Available Not Available spironolact one 100 mg tablet 02/09 completed Not Available Not Available Not Available pimecrolimu s 1 % topical cream APPLY TO THE AFFECTED AREA TOPICALLY TWICE DAILY FOR 30 DAYS active Not Available Not Available No t Available Synthroid 112 mcg tablet Take 1 tablet every day by oral route. 2024 active Not Available Not Available Not Avai lable letrozole 2.5 mg tablet TAKE 1 TABLET BY MOUTH DAILY FOR 5 DAYS FOR MENSTRUAL CYCLE. TAKE ON DAYS 3-7 OF MENSTRUAL CYCLE active Not Available Not Available No t Available azelaic acid 15 % topical gel APPLY TOPICALLY TO FACE DAILY active Not Available Not Available No t Available bupropion HCl XL 150 mg 24 hr tablet, extended release TAKE 1 TABLET BY MOUTH EVERY DAY IN THE MORNING 02/09 completed Not Available Not Available Not Available Vitals Date Recorded Systolic blood pressure Diastolic blood pressure Provider Name and Address Organization Details Last Updated DateTime 02/10/2024 120 mm[Hg] 80 mm[Hg] ANTON Joseph Attn: Accounting[address] [place], [address], [place] - [facility] 02/10/2024 12:37:02 Date Recorded Body weight Body mass index (BMI) Body height Respiratory rate Oxygen saturation Oxygen saturation in Arterial blood by Pulse oximetry Heart rate Systolic blood pressure Diastolic blood pressure Provider Name and Address Organization Details Last Updated DateTime 4 [address]10.0 7 g 33.4 kg/m2 165.1 cm 16 /min 98 % 98 % 104 /min 128 mm[Hg] 82 mm[Hg] Irma Leija [facility] 4 11:55:35 Social History Question Answer Notes LastModified by Organizat ion Details LastModified Time Tobacco Smoking Status Never Smoker Irma Leija [facility], [facility] 02/10/2024 11:57:24 Do You Have An Advance Directive? No [email or web address] Information not available 02/10/2024 Are You Blind Or Do You Have Difficulty Seeing? Yes Has Glasses [email or web address] Information not available 02/10/2024 What Is Your Level Of Caffeine Consumption? Moderate [email or web address] Information not available 02/10/2024 In The 14 Days Before Symptom Onset, Have You Had Close Contact With A Laboratory-confir med COVID-19 While That Case Was Ill? No [email or web address] Information not available 02/10/2024 In The 14 Days Before Symptom Onset, Have You Had Close Contact With A Person Who Is Under Investigation For COVID-19 While That Person Was Ill? No [email or web address] Information not available 02/10/2024 Have You Been To An Area Known To Be High Risk For COVID-19? No Information not available 02/10/2024 Are You Deaf Or Do You Have Serious Difficulty Hearing? No [email or web address] Information not available 02/10/2024 What Type Of Diet Are You Following? REGULAR [email or web address] Information not available 02/10/2024 Are There Any Guns Present In Your Home? Yes [email or web address] Information not available 02/10/2024 What Was The Date Of Your Most Recent Tobacco Screening? 02/10/2024 Information not available 02/10/2024 What Is Your Relationship Status? [email or web address] Information not available 02/10/2024 Do You Use Your Seat Belt Or Car Seat Routinely? Yes [email or web address] Information not available 02/10/2024 Do You Have Smoke And Carbon Monoxide Detectors In Your Home? Yes [email or web address] Information not available 02/10/2024 Do You Use Sunscreen Routinely? Yes [email or web address] Information not available 02/10/2024 Has Tobacco Cessation Counseling Been Provided? Yes [email or web address] Information not available 02/10/2024 On What Date Was Tobacco Cessation Counseling Provided? 02/10/2024 Information not available 02/10/2024 Sex: Unknown Functional Status Question Answer Note LastModified by Organizat ion Details LastModified Time Do you use any illicit or recreational drugs? No [email or web address] Information not available 02/10/2024 Do you or have you ever used any other forms of tobacco or nicotine? No [email or web address] Information not available 02/10/2024 What is your level of alcohol consumption? Occasional Information not available 02/10/2024 Are you currently employed? Yes [email or web address] Information not available 02/10/2024 Are you able to care for yourself? Yes Information n ot available 02/10/2024 What is your exercise level? Occasional [email or web address] Information not available 02/10/2024 Mental Status None recorded. Family History Relationship Description Onset Age of this Age Resolved Age Notes LastModified by Organization Details LastModified Time Father Myocardial infarction [email or web address] Not available 01/29 11:57:02 Brother Diabetes mellitus [email or web address] Not available 02/09 16:09:56 Medical History Condition Response Thyroid Problems Y Gynecological HistoryNo gynecological history recorded. Obstetrics History GPAL:G 0 P 0 0 0 0 Past Encounters Encounter ID Performer Location Encounter Start Date Encounter Closed Date Diagnosis/Indication Diagnosis SNOMED-CT Code Diagnosis ICD10 Code Diagnosis Note [id number] Sukhi Browne MD [id number] [facility] [address] [place] [address] 02/10/2024 11:44:34 02/10/2024 13:01:48 Body mass index 30+ - obesity 318143439 Z68.33 BMI is 33.4. Screening fasting insulin lab ordered Adult [facility] examination 974949724 Z00.00 Annual wellness exam complete Cholesterol screening 27 6991790 Z13.220 Annual fasting lipid panel ordered Diabetes m ellitus screening 593425328 Z13.1 Diabetes screening ordered Hypothyroidism 29118016 E03.9 Continue Synthroid 112 mcg daily and due for updated thyroid function lab panel Long-term drug therapy 507634347 Z79.899 Routine CBC and CMP due Obesity 253819355 E66.8 Patient is actively losing weight and has improve diet and exercise. Health Concerns Section Related Observation LastModified by Organization Detai ls LastModified Time None Recorded Concern Status LastModified by Organization Details LastModified Time None Recorded Advance Directives Directive N: Payers Encounter Date Sequence Insurance Name Policy Number Policy Howard Covered Member ID Howard Member ID Guarantor Name 02/10/2024 1 [place] [id number] Josh Chávez [id number] Zohra Saira Notes Date Note Type Note Provider Name and Address Organization Details Recorded Time 02/10/2024 text/html ThyroidReported bypatient.Quality:not changing Duration:constant Onset/Timing:still present Context:normal thyroid levels; no history of head or neck radiation during childhood; no history of thyroid disease; no history of hypothyroidism; no history of hyperthyroidism; no excess iron exposure;history of hypothyroidism Modifying Factors:medication Exerciseno exercise Associated Symptoms:no cold intolerance; no heat [...] sleep difficulties; no skin changes; no hair changesNotes:Patient is taking Synthroid 112 mcg daily ANTON Joseph Attn: Accounting[address] [place], [address], [place] - [facility] 02/29/2024 17:44:32 OBGyn Episode No OBEpisode recorded.
--- OUTSIDE RECORDS SUMMARY | 2024-12-07 13:34 | XMS_ITS | Clinical Summary ---
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 follow up of benign and stable thyroid [...] intervention Assessment & Plan (05/30/2021 3:42 PM HOME HEALTH SCHEDULER): Will obtain outside images to review Plan FNA 06/13 if needed and after images are reviewed Primary hypothyroidism 05/30/2021 Assessment & Plan (05/30/2021 3:43 PM HOME HEALTH SCHEDULER): Normal TFT Continue Synthroid dose Hair loss unlikely explained by hypothyroidism given normal function Medical History Medical History Date Comments Thyroid disease Hypothyroidism 2018 Stone's thyroiditis 2018 Hyperthyroidism Family History Medical History Relation Name Comments Heart attack Father Danilo Cancer Maternal Grandmother Nancy Knutson Relation Name Status Comments Father Danilo Maternal Grandmother Nancy Knutson Social History Tobacco Use Types Packs/Day Years Used Date Smoking Tobacco: Never Tobacco Cessation:Counseling Given: Not Answered Comments Unknown Sex and Gender Information Value Date Recorded Sex Assigned at Not on file Legal Sex Female 3:08 PM CDT Gender Identity Female 05/27/2021 3:04 PM HOME HEALTH SCHEDULER Sexual Orientation Straight 05/27/2021 3: 04 PM HOME HEALTH SCHEDULER Obstetrics History Last Filed Vital Signs Vital Sign Reading Time Taken Comments Blood Pressure 112/79 06/18/2022 2:42 PM HOME HEALTH SCHEDULER Pulse 94 06/18/2022 2:42 PM HOME HEALTH SCHEDULER Temperature 36.7 C (98 F) 06/18/2022 2:42 PM HOME HEALTH SCHEDULER Respiratory Rate - - Oxygen Saturation - - Inhaled Oxygen Concentration - - Weight 88 kg (194 lb) 06/18/2022 2:42 PM HOME HEALTH SCHEDULER Height 165.1 cm (5' 5) 06/18/2022 2:42 PM HOME HEALTH SCHEDULER Body Mass Index 32.28 06/18/2022 2:42 PM HOME HEALTH SCHEDULER Plan of Treatment Health Maintenance Due Date Last Done Comments Cervical Cancer Screening 1992 Depression Screening 1992 Hepatitis C Screening 1992 Varicella Vaccines (1 of 2 - 13+ 2-dose series) 2005 Regular Well Visit/Exam 18-64 2010 DTaP/Tdap/Td Vaccine (7 - Td or Tdap) 11/11/2016 11/11/2006, 02/08/1997, 10/19/1993, Additional history exists Covid-19 Vaccine ( season) 2024 10/24/2020, 09/26/2020 Influenza Vaccine (Season Ended) 2025 04/25/2020, 05/23/2019, 04/13/2016 Hepatitis B Screening Completed 03/08/2003 , 12/31/2002, 02/11/1997 HPV Vaccines Aged Out No longer eligi ble based on patient's age to complete this topic Pneumococcal vaccine <65 Aged Out No longer eligible based on patient's age to complete this topic [place] Care Teams Line Production Cook Relationship Specialty Start Date End Date Unknown, Notinfile PCP - General 06/13/22
[2024-12-08 04:38] LABS: Progesterone 33.4 ng/mL
== END 2024-12-07 12:18 | disposition home or self-care (01) ==
LOC: ANHLAB 12:20
PROVIDERS: PCP Physician Assistant; Referring Provider Student in an Organized Health Care Education/Training Program; Visit Provider Student in an Organized Health Care Education/Training Program
DX: N91.2 Amenorrhea, unspecified (principal)
CPT/HCPCS: 36415; 84144; 84702

== ENCOUNTER 2024-12-10 10:51 | Outpatient (CLI) | payer OTHER, SELFPAY ==
[2024-12-10 11:38] LABS: Beta HCG Quantitative 880.29 mIU/ML
--- OUTSIDE RECORDS SUMMARY | 2024-12-10 11:48 | XMS_ITS | Encounter Summary ---
Author Organization [facility] Address [address] [place] [address] Phone Care Team Providers Care Linter Tender Name Role Phone Unknown, Notinfile Primary Care [...] Gender Identity Female 05/27/2021 3:04 PM SENIOR VICE PRESIDENT & GENERAL COUNSEL Sexual Orientation Straight 05/27/2021 3: 04 PM SENIOR VICE PRESIDENT & GENERAL COUNSEL documented as of this encounter Plan of Treatment Not on file documented as of this encounter Procedures Procedure Name Priority Date/Time Associated Diagnosis Comments SCAN - LABS 09/26/2018 documented in this encounter Results * SCAN - LABS (09/26/2018) us Provider Scanning Final Result documented in this encounter Visit Diagnoses Not on filedocumented in this encounter Care Teams Linter Tender Relationship Specialty Start Date End Date Unknown, Lisa PCP - General 06/13/22 documented as of this encounter
--- OUTSIDE RECORDS SUMMARY | 2024-12-10 11:49 | XMS_ITS | Clinical Summary ---
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 follow up of benign and stable thyroid [...] intervention Assessment & Plan (05/30/2021 3:42 PM CASTER OPERATOR): Will obtain outside images to review Plan FNA 06/13 if needed and after images are reviewed Primary hypothyroidism 05/30/2021 Assessment & Plan (05/30/2021 3:43 PM CASTER OPERATOR): Normal TFT Continue Synthroid dose Hair loss [...] CDT Gender Identity Female 05/27/2021 3:04 PM CASTER OPERATOR Sexual Orientation Straight 05/27/2021 3: 04 PM CASTER OPERATOR Obstetrics History Last Filed Vital Signs Vital Sign Reading Time Taken Comments Blood Pressure 112/79 06/18/2022 2:42 PM CASTER OPERATOR Pulse 94 06/18/2022 2:42 PM CASTER OPERATOR Temperature 36.7 C (98 F) 06/18/2022 2:42 PM CASTER OPERATOR Respiratory Rate - - Oxygen Saturation - - Inhaled Oxygen Concentration - - Weight 88 kg (194 lb) 06/18/2022 2:42 PM CASTER OPERATOR Height 165.1 cm (5' 5) 06/18/2022 2:42 PM CASTER OPERATOR Body Mass Index 32.28 06/18/2022 2:42 PM CASTER OPERATOR Plan of Treatment Health Maintenance Due Date [...] patient's age to complete this topic [place] [employer] [place] [employer] [place] Care Teams Esthetician/Skin Therapist Relationship Specialty Start Date End Date Unknown, Notinfile PCP - General 06/13/22
--- OUTSIDE RECORDS SUMMARY | 2024-12-10 11:49 | XMS_ITS | Data Portability ---
Author Organization [facility] [employer], Main Office Address [address] [place] [address] Assessment No assessment recorded. Plan of Treatment Reminders Order Date Submit Date Provider Last Modified By Organization Details Last Modified Time Details Appointments None recorded. Lab CMP, serum or plasma [facility], [address], [place], [address], 3 09:15:46 lipid panel, serum 023 [employer] [facility], [address], [place], [address], 3 09:15:45 vitamin B12 + folate, serum or blood 023 [facility], [address], [place], [address], 3 09:15:50 HbA1c (hemoglob in A1c), blood 023 [employer] [facility], [address], [place], [address], 3 09:15:48 TSH + free T4, serum 023 023 [facility], [address], [place], [address], 3 09:15:45 T3, free, serum or plasma 023 023 [facility], [address], [place], [address], 3 09:15:48 iron + TIBC + ferritin, serum ROBBY [employer] [facility], [address], [place], [address], 3 09:15:43 CBC w/ auto diff LUCIEN [employer] [facility], [address], [place], [address], 3 09:15:49 Referral None recorded. Procedures None [...] pg/mL will have sympt oms. Not Available [employer] [facility] [address] [place], [address], 03/14/2021 13:23:04 03/13/2003/14/2021 VITAM IN B12/F OLATE , SERUM PANEL folate, serum 17.9 NG/mL normal Refer ence Range Low: <3.4 Borde rline : 3.4-5 .4 Richelle l: >5.4 Not Available [employer] - [address], [address], 03/14/2021 13:23:04 03/13/2003/14/2021 CBC (INCL UDES DIFF/ PLT) white blood cell count 6.4 thous and/u L 3.8-10 .8 normal Not Available [address], [address], 03/14/2021 13:23:03 03/13/2003/14/2021 CBC (INCL UDES DIFF/ PLT) red blood cell count 4.67 shade on/uL 3.80-5 .10 normal Not Available [facility] [address], [address], 03/14/2021 13:23:03 03/13/2003/14/2021 CBC (INCL UDES DIFF/ PLT) hemoglobin 14.6 g/dL 11.7-1 5.5 normal Not Available [address], [address], 03/14/2021 13:23:03 03/13/2003/14/2021 CBC (INCL UDES DIFF/ PLT) hematocrit 43.9 % 35.0-4 5.0 normal Not Available [address], [address], 03/14/2021 13:23:03 03/13/2003/14/2021 CBC (INCL UDES DIFF/ PLT) MCV 94.0 fL 80.0-1 00.0 normal Not Available [facility] [address], [address], 03/14/2021 13:23:03 03/13/2003/14/2021 CBC (INCL UDES DIFF/ PLT) MCH 31.3 pg 27.0-3 3.0 normal Not Available [facility] [address], [address], 03/14/2021 13:23:03 03/13/20 21 03/14/2021 CBC (INCL UDES DIFF/ PLT) MCHC 33.3 g/dL 32.0-3 6.0 normal Not Available [address], [address], 03/14/2021 13:23:03 03/13/20 21 03/14/2021 CBC (INCL UDES DIFF/ PLT) RDW 12.7 % 11.0-1 5.0 normal Not Available [address], [address], 03/14/2021 13:23:03 03/13/2003/14/2021 CBC (INCL UDES DIFF/ PLT) platelet count 177 thous and/u L 140-40 0 normal Not Available [address], [address], 03/14/2021 13:23:03 03/13/20 21 03/14/2021 CBC (INCL UDES DIFF/ PLT) MPV 11.8 fL 7.5-12 .5 normal Not Available [address], [address], 03/14/2021 13:23:03 03/13/20 21 03/14/2021 CBC (INCL UDES DIFF/ PLT) absolute neutrophils 4122 cells /uL 1500-7 800 normal Not Available [address], [address], 03/14/2021 13:23:03 03/13/2003/14/2021 CBC (INCL UDES DIFF/ PLT) absolute lymphocytes 1760 cells /uL 850-39 00 normal Not Available [address], [address], 03/14/2021 13:23:03 03/13/20 21 03/14/2021 CBC (INCL UDES DIFF/ PLT) absolute monocytes 339 cells /uL 200-95 0 normal Not Available [facility] [address] [address], [place], [address], 03/14/2021 13:23:03 03/13/20 21 03/14/2021 CBC (INCL UDES DIFF/ PLT) absolute eosinophils 147 cells /uL 15-500 normal Not Available [facility] [address], [address], 03/14/2021 13:23:03 03/13/20 21 03/14/2021 CBC (INCL UDES DIFF/ PLT) absolute basophils 32 cells /uL 0-200 normal Not Available [facility] [address], [address], 03/14/2021 13:23:03 03/13/20 21 03/14/2021 CBC (INCL UDES DIFF/ PLT) neutrophils 64.4 % normal Not Available [facility] [address], [address], 03/14/2021 13:23:03 03/13/20 21 03/14/2021 CBC (INCL UDES DIFF/ PLT) lymphocytes 27.5 % normal Not Available [facility] [address], [address], 03/14/2021 13:23:03 03/13/20 21 03/14/2021 CBC (INCL UDES DIFF/ PLT) monocytes 5.3 % normal Not Available [facility] [address], [address], 03/14/2021 13:23:03 03/13/20 21 03/14/2021 CBC (INCL UDES DIFF/ PLT) eosinophils 2.3 % normal Not Available [facility] [address], [address], 03/14/2021 13:23:03 03/13/20 21 03/14/2021 CBC (INCL UDES DIFF/ PLT) basophils 0.5 % normal Not Available [facility] [address], [address], 03/14/2021 13:23:03 03/13/20 21 03/14/2021 T3, FREE T3, free 3.3 pg/mL 2.3-4. 2 normal Not Available [address], [address], 03/14/2021 13:23:02 03/13/20 21 03/14/2021 COMPR EHENS MERE METAB OLIC PANEL glucose 97 mg/dL 65-99 normal Fasti ng refer ence inter lizbet Not Available [address], [address], 03/14/2021 13:23:01 03/13/20 21 03/14/2021 COMPR EHENS MERE METAB OLIC PANEL urea nitrogen (BUN) 12 mg/dL 7-25 normal Not Available [address], [address], 03/14/2021 13:23:01 03/13/20 21 03/14/2021 COMPR EHENS MERE METAB OLIC PANEL creatinine 0.79 mg/dL 0.50-1 .10 normal Not Available [address], [address], 03/14/2021 13:23:01 03/13/20 21 03/14/2021 COMPR EHENS MERE METAB OLIC PANEL eGFR non-afr. british 102 mL/mi n/1.7 3m2 > or = 60 normal Not Available [address], [address], 03/14/2021 13:23:01 03/13/20 21 03/14/2021 COMPR EHENS MERE METAB OLIC PANEL eGFR 118 mL/mi n/1.7 3m2 > or = 60 normal Not Available [address], [address], 03/14/2021 13:23:01 03/13/20 21 03/14/2021 COMPR EHENS MERE METAB OLIC PANEL BUN/creatini ne ratio not applic able (calc ) 6-22 Not Available [address], [address], 03/14/2021 13:23:01 03/13/20 21 03/14/2021 COMPR EHENS MERE METAB OLIC PANEL sodium 140 mmol/ L 135-14 6 normal Not Available [address], [address], 03/14/2021 13:23:01 03/13/20 21 03/14/2021 COMPR EHENS MERE METAB OLIC PANEL potassium 4.4 mmol/ L 3.5-5. 3 normal Not Available [address], [address], 03/14/2021 13:23:01 03/13/20 21 03/14/2021 COMPR EHENS MERE METAB OLIC PANEL chloride 107 mmol/ L 98-110 normal Not Available [address], [address], 03/14/2021 13:23:01 03/13/20 21 03/14/2021 COMPR EHENS MERE METAB OLIC PANEL carbon dioxide 24 mmol/ L 20-32 normal Not Available [address], [address], 03/14/2021 13:23:01 03/13/20 21 03/14/2021 COMPR EHENS MERE METAB OLIC PANEL calcium 9.5 mg/dL 8.6-10 .2 normal Not Available [address], [address], 03/14/2021 13:23:01 03/13/20 21 03/14/2021 COMPR EHENS MERE METAB OLIC PANEL protein, total 7.1 g/dL 6.1-8. 1 normal Not Available [address] [address] [place], [address], 03/14/2021 13:23:01 03/13/2003/14/2021 COMPR EHENS MERE METAB OLIC PANEL albumin 4.3 g/dL 3.6-5. 1 normal Not Available [address], [address], 03/14/2021 13:23:01 03/13/2003/14/2021 COMPR EHENS MERE METAB OLIC PANEL globulin 2.8 g/dL_ (calc ) 1.9-3. 7 normal Not Available [address], [address], 03/14/2021 13:23:01 03/13/2003/14/2021 COMPR EHENS MERE METAB OLIC PANEL albumin/glob ulin ratio 1.5 (calc ) 1.0-2. 5 normal Not Available [address] [address] [place], [address], 03/14/2021 13:23:01 03/13/2003/14/2021 COMPR EHENS MERE METAB OLIC PANEL bilirubin, total 0.6 mg/dL 0.2-1. 2 normal Not Available [address], [address], 03/14/2021 13:23:01 03/13/2003/14/2021 COMPR EHENS MERE METAB OLIC PANEL alkaline phosphatase 83 U/L 31-125 normal Not Available [address] [address] [place], [address], 03/14/2021 13:23:01 03/13/2003/14/2021 COMPR EHENS MERE METAB OLIC PANEL AST 15 U/L 10-30 normal Not Available [address] [address] [place], [address], 03/14/2021 13:23:01 03/13/20 21 03/14/2021 COMPR EHENS MERE METAB OLIC PANEL ALT 14 U/L 6-29 normal Not Available [address], [address], 03/14/2021 13:23:01 03/13/20 21 03/14/2021 LIPID PANEL WITH RATIO S cholesterol, total 164 mg/dL <200 normal Not Available [address], [address], 03/14/2021 13:23:01 03/13/2003/14/2021 LIPID PANEL WITH RATIO S HDL cholesterol 48 mg/dL > or = 50 low Not Available [address], [address], 03/14/2021 13:23:01 03/13/20 21 03/14/2021 LIPID PANEL WITH RATIO S triglyceride s 102 mg/dL <150 normal Not Available [address], [address], 03/14/2021 13:23:01 03/13/2003/14/2021 LIPID PANEL WITH RATIO [...] 2061- 2068 (http ://ed ucati on.Qu Joesph [employer]. com/f aq/FA Q164) Not Available [address], [address], 03/14/2021 13:23:01 03/13/2003/14/2021 LIPID PANEL WITH RATIO S chol/HDLC ratio 3.4 (calc ) <5.0 normal Not Available [address], [address], 03/14/2021 13:23:01 03/13/2003/14/2021 LIPID PANEL WITH RATIO S LDL/HDL ratio 2.0 (calc ) Below avera ge Risk: <2.34 [place] ge Risk: 2.35- 4.12 Moder ate Risk: 4.13- 5.56 High Risk: >5.57 Not Available [address], [address], 03/14/2021 13:23:01 03/13/2003/14/2021 LIPID PANEL WITH RATIO S non HDL cholesterol 116 mg/dL _(shawna c) <130 normal For patie nts with diabe shahla plus 1 major ASCVD risk facto r, treat ing to a non-H DL-C goal of <100 mg/dL (LDL- C of <70 mg/dL ) is michael kellogg optio n. Not Available [address], [address], 03/14/2021 13:23:01 03/13/2003/14/2021 TSH+F REE T4 TSH 1.28 mIU/L normal Refer ence Range > or = 20 Years 0.40- 4.50 Pregn paloma Range s First trime ster 0.26- 2.66 Secon d trime ster 0.55- 2.73 Third trime ster 0.43- 2.91 Not Available [address], [address], 03/14/2021 13:22:59 03/13/2003/14/2021 TSH+F REE T4 T4, free 1.4 NG/dL 0.8-1. 8 normal Not Available [address], [address], 03/14/2021 13:22:59 03/13/2003/14/2021 IRON, TIBC AND SALINAS TIN PANEL iron, total 121 mcg/d L 40-190 normal Not Available [address], [address], 03/14/2021 13:22:57 03/13/20 21 03/14/2021 IRON, TIBC AND SALINAS TIN PANEL iron binding capacity 378 mcg/d L_(ca lc) 250-45 0 normal Not Available [address], [address], 03/14/2021 13:22:57 03/13/20 21 03/14/2021 IRON, TIBC AND SALINAS TIN PANEL % saturation 32 %_(ca lc) 16-45 normal Not Available [address], [address], 03/14/2021 13:22:57 03/13/20 21 03/14/2021 IRON, TIBC AND SALINAS TIN PANEL ferritin 22 NG/mL 16-154 normal Not Available [address], [address], 03/14/2021 13:22:57 02/27/20 22 02/27/2022 CBC (INCL UDES DIFF/ PLT) white blood cell count 5.4 thous and/u L 3.8-10 .8 normal Not Available [address], [address], 02/27/2022 05:55:42 02/27/20 22 02/27/2022 CBC (INCL UDES DIFF/ PLT) red blood cell count 4.87 shade on/uL 3.80-5 .10 normal Not Available [address], [address], 02/27/2022 05:55:42 02/27/20 22 02/27/2022 CBC (INCL UDES DIFF/ PLT) hemoglobin 11.4 g/dL 11.7-1 5.5 low Not Available [address], [address], 02/27/2022 05:55:42 02/27/20 22 02/27/2022 CBC (INCL UDES DIFF/ PLT) hematocrit 36.7 % 35.0-4 5.0 normal Not Available [facility] [address], [address], 02/27/2022 05:55:42 02/27/20 22 02/27/2022 CBC (INCL UDES DIFF/ PLT) MCV 75.4 fL 80.0-1 00.0 low Not Available [address], [address], 02/27/2022 05:55:42 02/27/20 22 02/27/2022 CBC (INCL UDES DIFF/ PLT) MCH 23.4 pg 27.0-3 3.0 low Not Available [facility] [address], [address], 02/27/2022 05:55:42 02/27/20 22 02/27/2022 CBC (INCL UDES DIFF/ PLT) MCHC 31.1 g/dL 32.0-3 6.0 low Not Available [address], [address], 02/27/2022 05:55:42 02/27/20 22 02/27/2022 CBC (INCL UDES DIFF/ PLT) RDW 17.1 % 11.0-1 5.0 high Not Available [facility] [address], [address], 02/27/2022 05:55:42 02/27/20 22 02/27/2022 CBC (INCL UDES DIFF/ PLT) platelet count 210 thous and/u L 140-40 0 normal Not Available [address], [address], 02/27/2022 05:55:42 02/27/20 22 02/27/2022 CBC (INCL UDES DIFF/ PLT) MPV 11.3 fL 7.5-12 .5 normal Not Available [address], [address], 02/27/2022 05:55:42 02/27/20 22 02/27/2022 CBC (INCL UDES DIFF/ PLT) absolute neutrophils 3127 cells /uL 1500-7 800 normal Not Available [address], [address], 02/27/2022 05:55:42 02/27/20 22 02/27/2022 CBC (INCL UDES DIFF/ PLT) absolute lymphocytes 1701 cells /uL 850-39 00 normal Not Available [address], [address], 02/27/2022 05:55:42 02/27/20 22 02/27/2022 CBC (INCL UDES DIFF/ PLT) absolute monocytes 432 cells /uL 200-95 0 normal Not Available [address], [address], 02/27/2022 05:55:42 02/27/20 22 02/27/2022 CBC (INCL UDES DIFF/ PLT) absolute eosinophils 103 cells /uL 15-500 normal Not Available [facility] [address], [address], 02/27/2022 05:55:42 02/27/20 22 02/27/2022 CBC (INCL UDES DIFF/ PLT) absolute basophils 38 cells /uL 0-200 normal Not Available [facility] [address], [address], 02/27/2022 05:55:42 02/27/20 22 02/27/2022 CBC (INCL UDES DIFF/ PLT) neutrophils 57.9 % normal Not Available [address], [address], 02/27/2022 05:55:42 02/27/20 22 02/27/2022 CBC (INCL UDES DIFF/ PLT) lymphocytes 31.5 % normal Not Available [address], [address], 02/27/2022 05:55:42 02/27/20 22 02/27/2022 CBC (INCL UDES DIFF/ PLT) monocytes 8.0 % normal Not Available [address], [address], 02/27/2022 05:55:42 02/27/20 22 02/27/2022 CBC (INCL UDES DIFF/ PLT) eosinophils 1.9 % normal Not Available [address], [address], 02/27/2022 05:55:42 02/27/20 22 02/27/2022 CBC (INCL UDES DIFF/ PLT) basophils 0.7 % normal Not Available [address], [address], 02/27/2022 05:55:42 02/27/2002/27/2022 T3, FREE T3, free 3.1 pg/mL 2.3-4. 2 normal Not Available [address], [address], 02/27/2022 05:55:41 02/27/20 22 02/27/2022 COMPR EHENS MERE METAB OLIC PANEL glucose 88 mg/dL 65-99 normal Fasti ng refer ence inter lizbet Not Available [address], [address], 02/27/2022 05:55:41 02/27/20 22 02/27/2022 COMPR EHENS MERE METAB OLIC PANEL urea nitrogen (BUN) 16 mg/dL 7-25 normal Not Available [address], [address], 02/27/2022 05:55:41 02/27/20 22 02/27/2022 COMPR EHENS MERE METAB OLIC PANEL creatinine 0.79 mg/dL 0.50-0 .96 normal Not Available [facility] [address], [address], 02/27/2022 05:55:41 02/27/20 22 02/27/2022 COMPR EHENS [...] kdoqi /gfr% 5Fcal culat or Not Available [address], [address], 02/27/2022 05:55:41 02/27/20 22 02/27/2022 COMPR EHENS MERE METAB OLIC PANEL BUN/creatini ne ratio not applic able (calc ) 6-22 Not Available [facility] [address], [address], 02/27/2022 05:55:41 02/27/20 22 02/27/2022 COMPR EHENS MERE METAB OLIC PANEL sodium 141 mmol/ L 135-14 6 normal Not Available [facility] [address], [address], 02/27/2022 05:55:41 02/27/20 22 02/27/2022 COMPR EHENS MERE METAB OLIC PANEL potassium 4.8 mmol/ L 3.5-5. 3 normal Not Available [address], [address], 02/27/2022 05:55:41 02/27/20 22 02/27/2022 COMPR EHENS MERE METAB OLIC PANEL chloride 112 mmol/ L 98-110 high Not Available [address], [address], 02/27/2022 05:55:41 02/27/20 22 02/27/2022 COMPR EHENS MERE METAB OLIC PANEL carbon dioxide 24 mmol/ L 20-32 normal Not Available [address], [address], 02/27/2022 05:55:41 02/27/20 22 02/27/2022 COMPR EHENS MERE METAB OLIC PANEL calcium 9.2 mg/dL 8.6-10 .2 normal Not Available [address], [address], 02/27/2022 05:55:41 02/27/20 22 02/27/2022 COMPR EHENS MERE METAB OLIC PANEL protein, total 6.6 g/dL 6.1-8. 1 normal Not Available [address], [address], 02/27/2022 05:55:41 02/27/20 22 02/27/2022 COMPR EHENS MERE METAB OLIC PANEL albumin 4.0 g/dL 3.6-5. 1 normal Not Available [facility] [address], [address], 02/27/2022 05:55:41 02/27/20 22 02/27/2022 COMPR EHENS MERE METAB OLIC PANEL globulin 2.6 g/dL_ (calc ) 1.9-3. 7 normal Not Available [address], [address], 02/27/2022 05:55:41 02/27/20 22 02/27/2022 COMPR EHENS MERE METAB OLIC PANEL albumin/glob ulin ratio 1.5 (calc ) 1.0-2. 5 normal Not Available [address], [address], 02/27/2022 05:55:41 02/27/20 22 02/27/2022 COMPR EHENS MERE METAB OLIC PANEL bilirubin, total 0.3 mg/dL 0.2-1. 2 normal Not Available [address], [address], 02/27/2022 05:55:41 02/27/20 22 02/27/2022 COMPR EHENS MERE METAB OLIC PANEL alkaline phosphatase 77 U/L 31-125 normal Not Available [address], [address], 02/27/2022 05:55:41 02/27/20 22 02/27/2022 COMPR EHENS MERE METAB OLIC PANEL AST 15 U/L 10-30 normal Not Available [address], [address], 02/27/2022 05:55:41 02/27/20 22 02/27/2022 COMPR EHENS MERE METAB OLIC PANEL ALT 22 U/L 6-29 normal Not Available [address], [address], 02/27/2022 05:55:41 02/27/20 22 02/27/2022 LIPID PANEL WITH RATIO S cholesterol, total 154 mg/dL <200 normal Not Available [address], [address], 02/27/2022 05:55:40 02/27/20 22 02/27/2022 LIPID PANEL WITH RATIO S HDL cholesterol 54 mg/dL > or = 50 normal Not Available [address], [address], 02/27/2022 05:55:40 02/27/20 22 02/27/2022 LIPID PANEL WITH RATIO S triglyceride s 68 mg/dL <150 normal Not Available [address], [address], 02/27/2022 05:55:40 02/27/20 22 02/27/2022 LIPID PANEL [...] 9): 2061- 2068 (http ://ed ucati on.Qu [employer]isse[employer]-marker. com/f aq/FA Q164) Not Available [address], [address], 02/27/2022 05:55:40 02/27/20 22 02/27/2022 LIPID PANEL WITH RATIO S chol/HDLC ratio 2.9 (calc ) <5.0 normal Not Available [address], [address], 02/27/2022 05:55:40 02/27/20 22 02/27/2022 LIPID PANEL WITH RATIO S LDL/HDL ratio 1.6 (calc ) Below avera ge Risk: <2.34 [place] ge Risk: 2.35- 4.12 Moder ate Risk: 4.13- 5.56 High Risk: >5.57 Not Available [address], [address], 02/27/2022 05:55:40 02/27/20 22 02/27/2022 LIPID PANEL WITH RATIO S non HDL cholesterol 100 mg/dL _(shawna c) <130 normal For patie nts with diabe shahla plus 1 major ASCVD risk facto r, treat ing to a non-H DL-C goal of <100 mg/dL (LDL- C of <70 mg/dL ) is consi daned a thera peuti c optio n. Not Available [address], [address], 02/27/2022 05:55:40 02/27/2002/27/2022 TSH+F REE T4 TSH 2.25 mIU/L normal Refer ence Range > or = 20 Years 0.40- 4.50 Pregn paloma Range s First trime ster 0.26- 2.66 Secon d trime ster 0.55- 2.73 Third trime ster 0.43- 2.91 Not Available [address], [address], 02/27/2022 05:55:39 02/27/2002/27/2022 TSH+F REE T4 T4, free 1.1 NG/dL 0.8-1. 8 normal Not Available [address], [address], 02/27/2022 05:55:39 04/09/2004/10/2023 IRON, TIBC AND SALINAS TIN PANEL iron, total 68 mcg/d L 40-190 normal Not Available [facility] [address], [address], 04/10/2023 09:15:43 04/09/2004/10/2023 IRON, TIBC AND SALINAS TIN PANEL iron binding capacity 346 mcg/d L_(ca lc) 250-45 0 normal Not Available [address], [address], 04/10/2023 09:15:43 04/09/2004/10/2023 IRON, TIBC AND SALINAS TIN PANEL % saturation 20 %_(ca lc) 16-45 normal Not Available [address], [address], 04/10/2023 09:15:43 04/09/20 23 04/10/2023 IRON, TIBC AND SALINAS TIN PANEL ferritin 33 NG/mL 16-154 normal Not Available [address], [address], 04/10/2023 09:15:43 04/09/2004/10/2023 TSH+F REE T4 TSH 0.21 mIU/L low Refer ence Range > or = 20 Years 0.40- 4.50 Pregn paloma Range s First trime ster 0.26- 2.66 Secon d trime ster 0.55- 2.73 Third trime ster 0.43- 2.91 Not Available [address], [address], 04/10/2023 09:15:44 04/09/2004/10/2023 TSH+F REE T4 T4, free 1.5 NG/dL 0.8-1. 8 normal Not Available [address], [address], 04/10/2023 09:15:44 04/09/2004/10/2023 LIPID PANEL WITH RATIO S cholesterol, total 165 mg/dL <200 normal Not Available [address], [address], 04/10/2023 09:15:45 04/09/2004/10/2023 LIPID PANEL WITH RATIO S HDL cholesterol 48 mg/dL > or = 50 low Not Available [address], [address], 04/10/2023 09:15:45 04/09/2004/10/2023 LIPID PANEL WITH RATIO S triglyceride s 90 mg/dL <150 normal Not Available [address], [address], 04/10/2023 09:15:45 04/09/2004/10/2023 LIPID PANEL WITH RATIO [...] 2061- 2068 (http ://ed ucati on.Qu Joesph [employer]. com/f aq/FA Q164) Not Available [address] [place], [address], 04/10/2023 09:15:45 04/09/2004/10/2023 LIPID PANEL WITH RATIO S chol/HDLC ratio 3.4 (calc ) <5.0 normal Not Available [address], [address], 04/10/2023 09:15:45 04/09/2004/10/2023 LIPID PANEL WITH RATIO S LDL/HDL ratio 2.1 (calc ) Below avera ge Risk: <2.34 [place] ge Risk: 2.35- 4.12 Moder ate Risk: 4.13- 5.56 High Risk: >5.57 Not Available [address] [address] [facility] [place], [address], 04/10/2023 09:15:45 04/09/2004/10/2023 LIPID PANEL WITH RATIO S non HDL cholesterol 117 mg/dL _(shawna c) <130 normal For patie nts with diabe shahla plus 1 major ASCVD risk facto r, treat ing to a non-H DL-C goal of <100 mg/dL (LDL- C of <70 mg/dL ) is michael kellogg optio n. Not Available [address] [address] [place], [address], 04/10/2023 09:15:45 04/09/2004/10/2023 COMPR EHENS MERE METAB OLIC PANEL glucose 80 mg/dL 65-99 normal Fasti ng refer ence inter lizbet Not Available [address], [address], 04/10/2023 09:15:46 04/09/2004/10/2023 COMPR EHENS MERE METAB OLIC PANEL urea nitrogen (BUN) 13 mg/dL 7-25 normal Not Available [address] [address] [place], [address], 04/10/2023 09:15:46 04/09/2004/10/2023 COMPR EHENS MERE METAB OLIC PANEL creatinine 0.66 mg/dL 0.50-0 .97 normal Not Available [address], [address], 04/10/2023 09:15:46 04/09/2004/10/2023 COMPR EHENS MERE METAB OLIC PANEL eGFR 121 mL/mi n/1.7 3m2 > or = 60 normal Not Available [address], [address], 04/10/2023 09:15:46 04/09/2004/10/2023 COMPR EHENS MERE METAB OLIC PANEL BUN/creatini ne ratio SEE NOTE: (calc ) 6-22 Not Repor charmaine: BUN and Creat inine are withi n refer ence range . Not Available [address] [place], [address], 04/10/2023 09:15:46 04/09/2004/10/2023 COMPR EHENS MERE METAB OLIC PANEL sodium 139 mmol/ L 135-14 6 normal Not Available [address], [address], 04/10/2023 09:15:46 04/09/2004/10/2023 COMPR EHENS MERE METAB OLIC PANEL potassium 4.0 mmol/ L 3.5-5. 3 normal Not Available [address], [address], 04/10/2023 09:15:46 04/09/2004/10/2023 COMPR EHENS MERE METAB OLIC PANEL chloride 106 mmol/ L 98-110 normal Not Available [address], [address], 04/10/2023 09:15:46 04/09/2004/10/2023 COMPR EHENS MERE METAB OLIC PANEL carbon dioxide 24 mmol/ L 20-32 normal Not Available [address], [address], 04/10/2023 09:15:46 04/09/2004/10/2023 COMPR EHENS MERE METAB OLIC PANEL calcium 9.0 mg/dL 8.6-10 .2 normal Not Available [address], [address], 04/10/2023 09:15:46 04/09/2004/10/2023 COMPR EHENS MERE METAB OLIC PANEL protein, total 6.7 g/dL 6.1-8. 1 normal Not Available [address], [address], 04/10/2023 09:15:46 04/09/2004/10/2023 COMPR EHENS MERE METAB OLIC PANEL albumin 4.2 g/dL 3.6-5. 1 normal Not Available [address], [address], 04/10/2023 09:15:46 04/09/2004/10/2023 COMPR EHENS MERE METAB OLIC PANEL globulin 2.5 g/dL_ (calc ) 1.9-3. 7 normal Not Available [address], [address], 04/10/2023 09:15:46 04/09/2004/10/2023 COMPR EHENS MERE METAB OLIC PANEL albumin/glob ulin ratio 1.7 (calc ) 1.0-2. 5 normal Not Available [address], [address], 04/10/2023 09:15:46 04/09/2004/10/2023 COMPR EHENS MERE METAB OLIC PANEL bilirubin, total 0.7 mg/dL 0.2-1. 2 normal Not Available [address], [address], 04/10/2023 09:15:46 04/09/2004/10/2023 COMPR EHENS MERE METAB OLIC PANEL alkaline phosphatase 96 U/L 31-125 normal Not Available [address], [address], 04/10/2023 09:15:46 04/09/2004/10/2023 COMPR EHENS MERE METAB OLIC PANEL AST 44 U/L 10-30 high Not Available [address], [address], 04/10/2023 09:15:46 04/09/2004/10/2023 COMPR EHENS MERE METAB OLIC PANEL ALT 113 U/L 6-29 high Not Available [address], [address], 04/10/2023 09:15:46 04/09/2004/10/2023 HEMOG LOBIN A1C hemoglobin [...] Care in [facility](A DA). Not Available [address] [address] [place], [address], 04/10/2023 09:15:47 04/09/2004/10/2023 T3, FREE T3, free 3.0 pg/mL 2.3-4. 2 normal Not Available [facility] [address] [address] [place], [address], 04/10/2023 09:15:48 04/09/2004/10/2023 CBC (INCL UDES DIFF/ PLT) white blood cell count 5.9 thous and/u L 3.8-10 .8 normal Not Available [facility] [address] [address] [place], [address], 04/10/2023 09:15:49 04/09/2004/10/2023 CBC (INCL UDES DIFF/ PLT) red blood cell count 4.40 shade on/uL 3.80-5 .10 normal Not Available [address], [address], 04/10/2023 09:15:49 04/09/2004/10/2023 CBC (INCL UDES DIFF/ PLT) hemoglobin 13.3 g/dL 11.7-1 5.5 normal Not Available [address], [address], 04/10/2023 09:15:49 04/09/2004/10/2023 CBC (INCL UDES DIFF/ PLT) hematocrit 38.7 % 35.0-4 5.0 normal Not Available [address], [address], 04/10/2023 09:15:49 04/09/2004/10/2023 CBC (INCL UDES DIFF/ PLT) MCV 88.0 fL 80.0-1 00.0 normal Not Available [address], [address], 04/10/2023 09:15:49 04/09/2004/10/2023 CBC (INCL UDES DIFF/ PLT) MCH 30.2 pg 27.0-3 3.0 normal Not Available [address], [address], 04/10/2023 09:15:49 04/09/2004/10/2023 CBC (INCL UDES DIFF/ PLT) MCHC 34.4 g/dL 32.0-3 6.0 normal Not Available [address], [address], 04/10/2023 09:15:49 04/09/2004/10/2023 CBC (INCL UDES DIFF/ PLT) RDW 12.8 % 11.0-1 5.0 normal Not Available [address] [place], [address], 04/10/2023 09:15:49 04/09/2004/10/2023 CBC (INCL UDES DIFF/ PLT) platelet count 162 thous and/u L 140-40 0 normal Not Available [address], [address], 04/10/2023 09:15:49 04/09/2004/10/2023 CBC (INCL UDES DIFF/ PLT) MPV 12.3 fL 7.5-12 .5 normal Not Available [address], [address], 04/10/2023 09:15:49 04/09/2004/10/2023 CBC (INCL UDES DIFF/ PLT) absolute neutrophils 3729 cells /uL 1500-7 800 normal Not Available [address], [address], 04/10/2023 09:15:49 04/09/2004/10/2023 CBC (INCL UDES DIFF/ PLT) absolute lymphocytes 1682 cells /uL 850-39 00 normal Not Available [address], [address], 04/10/2023 09:15:49 04/09/2004/10/2023 CBC (INCL UDES DIFF/ PLT) absolute monocytes 319 cells /uL 200-95 0 normal Not Available [address], [address], 04/10/2023 09:15:49 04/09/2004/10/2023 CBC (INCL UDES DIFF/ PLT) absolute eosinophils 130 cells /uL 15-500 normal Not Available [address], [address], 04/10/2023 09:15:49 04/09/2004/10/2023 CBC (INCL UDES DIFF/ PLT) absolute basophils 41 cells /uL 0-200 normal Not Available [address], [address], 04/10/2023 09:15:49 04/09/2004/10/2023 CBC (INCL UDES DIFF/ PLT) neutrophils 63.2 % normal Not Available [address], [address], 04/10/2023 09:15:49 04/09/2004/10/2023 CBC (INCL UDES DIFF/ PLT) lymphocytes 28.5 % normal Not Available [address], [address], 04/10/2023 09:15:49 04/09/2004/10/2023 CBC (INCL UDES DIFF/ PLT) monocytes 5.4 % normal Not Available [address], [address], 04/10/2023 09:15:49 04/09/2004/10/2023 CBC (INCL UDES DIFF/ PLT) eosinophils 2.2 % normal Not Available [address], [address], 04/10/2023 09:15:49 04/09/2004/10/2023 CBC (INCL UDES DIFF/ PLT) basophils 0.7 % normal Not Available [address], [address], 04/10/2023 09:15:49 04/09/2004/10/2023 VITAM IN B12/F OLATE , SERUM PANEL vitamin B12 817 pg/mL 200-11 00 normal Not Available [address], [address], 04/10/2023 09:15:50 04/09/2004/10/2023 VITAM IN B12/F OLATE , SERUM PANEL folate, serum 22.4 NG/mL normal Refer ence Range Low: <3.4 Borde rline : 3.4-5 .4 Richelle l: >5.4 Not Available [address], [address], 04/10/2023 09:15:50 07/08/19 24 07/09/2023 HEPAT IC FUNCT ION PANEL protein, total 7.0 g/dL 6.1-8. 1 normal Not Available [address], [address], 07/09/2023 02:19:54 07/08/1907/09/2023 HEPAT IC FUNCT ION PANEL albumin 4.5 g/dL 3.6-5. 1 normal Not Available [address], [address], 07/09/2023 02:19:54 07/08/19 24 07/09/2023 HEPAT IC FUNCT ION PANEL globulin 2.5 g/dL_ (calc ) 1.9-3. 7 normal Not Available [address], [address], 07/09/2023 02:19:54 07/08/1907/09/2023 HEPAT IC FUNCT ION PANEL albumin/glob ulin ratio 1.8 (calc ) 1.0-2. 5 normal Not Available [address], [address], 07/09/2023 02:19:54 07/08/19 24 07/09/2023 HEPAT IC FUNCT ION PANEL bilirubin, total 0.6 mg/dL 0.2-1. 2 normal Not Available [address], [address], 07/09/2023 02:19:54 07/08/1907/09/2023 HEPAT IC FUNCT ION PANEL bilirubin, direct 0.1 mg/dL < or = 0.2 normal Not Available [facility] [address], [address], 07/09/2023 02:19:54 07/08/19 24 07/09/2023 HEPAT IC FUNCT ION PANEL bilirubin, indirect 0.5 mg/dL _(shawna c) 0.2-1. 2 normal Not Available [address], [address], 07/09/2023 02:19:54 07/08/19 24 07/09/2023 HEPAT IC FUNCT ION PANEL alkaline phosphatase 90 U/L 31-125 normal Not Available [facility] [address], [address], 07/09/2023 02:19:54 07/08/19 24 07/09/2023 HEPAT IC FUNCT ION PANEL AST 23 U/L 10-30 normal Not Available [address], [address], 07/09/2023 02:19:54 07/08/19 24 07/09/2023 HEPAT IC FUNCT ION PANEL ALT 30 U/L 6-29 high Not Available [facility] [address], [address], 07/09/2023 02:19:54 07/08/19 24 07/09/2023 GGT GGT 20 U/L 3-50 normal Not Available [address], [address], 07/09/2023 02:20:01 04/13/20 21 04/11/2021 [place], thyro id No observ ation record ed. [id number], [place], [address], 08/29/2022 20:04:29 05/14/20 22 05/14/2022 diagn ostic colon oscop y (PROC ) No observ ation record ed. [id number] [facility] (Medical Records) [address], [place], [address], 08/29/2022 20:04:29 Result Notes None recorded. Problems Name Problem SNOMED Code Status Onset Date Resolution Date Notes Provider Name and Address Organization Details Recorded Time Loss of hair 621683620 Active 2021 Not Available [facility] 3 20:02:43 Low back pain 357528569 Active 2021 Not Available [facility] 3 20:02:43 Sleep disorder 97060765 Active 2021 Not Available [facility] 3 20:02:43 Hematochezia 258239737 Active 2021 Not Available [facility] 3 20:02:43 Hypothyroidis m 92258788 Active 2018 Not Available [facility] 3 20:02:43 Microcytic hypochromic anemia 67083629 Active 2021 Not Available [facility] 3 20:02:43 Allergic rhinitis 44191832 Active 2018 Not Available [facility] 3 20:02:43 Mild major depression 90341539 Active 2021 Not Available [facility] 3 20:02:43 Iron deficiency anemia 98864930 Active 2022 Not Available [facility] 3 20:02:44 Liver enzymes level above reference range 566920911 Active 2023 ANTON Joseph [address] [facility], [facility] [address], [place], [address] , [facility] 4 15:50:23 Problem Notes None recorded. Procedures Surgical History Date Name Laterality Status Provider Name and Address Organization Details Recorded Time 02/18/20 20 [employer] AD[employer]AT[employer]IST[employer] Surgery completed Not Available [facility] 08/30/19 20:01:14 01/25/20 20 Date of Last Pap Smear completed Not Available [facility] 08/29/2022 20:01:13 Tonsillectomy completed Not Available [facility] 08/29/2022 20:01:14 Colonoscopy completed Not Available [facility] 08/29/2022 20:01:14 Imaging Results None recorded. Procedure [...] % 94 /min 16 /min 98.1 [degF] 25819.8 8 g 118 mm[Hg] 78 mm[Hg] Not Available [facility] 3 20:02:26 Date Recorded Body mass index (BMI) Body height Oxygen saturation Oxygen saturation in Arterial blood by Pulse oximetry Heart rate Body temperature Body weight Systolic blood pressure Diastolic blood pressure Provider Name and Address Organization Details Last Updated DateTime 1 32.9 kg/m2 167.01 cm 99 % 99 % 98 /min 97.3 [degF] 67658.3 8 g 120 mm[Hg] 80 mm[Hg] Not Available [facility] 3 20:02:26 Date Recorded Body mass index (BMI) Body height Oxygen saturation Oxygen saturation in Arterial blood by Pulse oximetry Heart rate Respiratory rate Body temperature Body weight Systolic blood pressure Diastolic blood pressure Provider Name and Address Organization Details Last Updated DateTime 2 32.1 kg/m2 167.01 cm 98 % 98 % 86 /min 16 /min 97.5 [degF] 67431.1 3 g 122 mm[Hg] 80 mm[Hg] Not Available [facility] 3 20:02:27 Date Recorded Body height Provider Name an d Address Organization Details Last Updated DateTime 03/22/2023 167.01 cm CLARISA Ramirez [facility] 03/22/2023 11:02:57 Date Recorded Body height Body temperature Body mass index (BMI) Body weight Heart rate Oxygen saturation Oxygen saturation in Arterial blood by Pulse oximetry Systolic blood pressure Diastolic blood pressure Provider Name and Address Organization Details Last Updated DateTime 167.01 cm 97.2 [degF] 30.6 kg/m2 22137.3 7 g 84 /min 99 % 99 % 118 mm[Hg] 80 mm[Hg] Shyanne Calderon RN [facility] 3 11:23:22 Social History Question Answer Notes LastModified by Organizat ion Details LastModified Time Tobacco Smoking Status Never Smoker CLARISA Ramirez null, [facility] 03/22/2023 11:02:35 Do You Have An Advance Directive? No [id number] Information not available 08/29/2022 What Is Your Level Of Caffeine Consumption? Moderate [id number] Information not available 08/29/2022 In The 14 Days Before Symptom Onset, Have You Had Close Contact With A Laboratory-confirm ed COVID-19 While That Case Was Ill? No [email or web address] Information n ot available 03/22/2023 In The 14 Days Before Symptom Onset, Have You Had Close Contact With A Person Who Is Under Investigation For COVID-19 While That Person Was Ill? No [email or web address] Information not available 03/22/2023 What Type Of Diet Are You Following? REGULAR [id number] Information not available 08/29/2022 Have There Been Any Changes To Your Family Or Social Situation? No [email or web address] Information no t available 03/22/2023 Are There Any Guns Present In Your Home? Yes [email or web address] Information not available 03/22/2023 Do You Use Insect Repellent Routinely? No [email or web address] Information not available 03/22/2023 Do You Have A Medical Power Of Personal Support Worker? No [email or web address] Information not available 03/22/2023 What Is Your Relationship Status? [id number] Information not available 08/29/2022 Do You Use Your Seat Belt Or Car Seat Routinely? Yes [email or web address] Information not available 03/22/2023 Do You Have Smoke And Carbon Monoxide Detectors In Your Home? Yes [email or web address] Information not available 03/22/2023 Do You Use Sunscreen Routinely? Yes [email or web address] Information not available 03/22/2023 Have You Recently Traveled Abroad? No [email or web address] Information not available 03/22/2023 Do You Have Any Dietary Restrictions? No [email or web address] Information not available 03/22/2023 Sex: Unknown Functional Status Question Answer Note LastModified by Organizat ion Details LastModified Time Do you use any illicit or recreational drugs? No [email or web address] Information not available 03/22/2023 Do you or have you ever used any other forms of tobacco or nicotine? No [email or web address] Information not available 03/22/2023 What is your level of alcohol consumption? Occasional [id number] Information not available 08/29/2022 What is your exercise level? Occasional [id number] Information not available 08/29/2022 Mental Status None recorded. Family History Relationship Description Onset Age of this Age Resolved Age Notes LastModified by Organization Details LastModified Time Father Myocardial infarction [id number] Not available 08/29/2022 20:01:16 Maternal Grandmother Malignant neoplasm of skin [email or web address] Not available 03/22 11:02:34 Medical History Condition [...] virus, quadrivalent, preservative 9 completed Not Available [facility] 08/29/2022 20:04:22 Influenza, split virus, quadrivalent, PF 0 completed Not Available [facility] 08/29/2022 20:04:22 Past Encounters Encounter ID Performer Location Encounter Start Date Encounter Closed Date Diagnosis/Indication Diagnosis SNOMED-CT Code Diagnosis ICD10 Code Diagnosis Note [id number] [facility] ic_[facility] _ATHENA_M IGRATION_ DEFAULT_1 _1 , 01/30/2021 00:00:00 01/30/2021 12:21:36 [id number] ANTON Joseph [facility] [place] [address] [place] [address] 03/13/2021 00:00:00 03/30/2021 00:20:29 [id number] Sukhi Browne MD [facility] [place] [address] [place] [address] 02/21/2022 00:00:00 02/25/2022 09:00:13 [id number] ANTON Joseph [facility] [place] [address] [place] [address] 03/21/2022 00:00:00 03/26/2022 09:53:28 [id number] ANTON Joseph [facility] [place] [address] [place] [address] 03/22/2023 11:02:21 03/22/2023 11:12:22 [id number] ANTON Joseph [facility] [place] [address] [place] [address] 04/08/2023 11:17:41 04/08/2023 11:50:26 Adult health examination 660285811 Z00.01 annual wellness completed. All labs are due, fasting. Hypothyroidism 46956819 E03.9 on thyroid supplement . due for TFT panel to monitor dosing. Mild major depression 87 743370 F32.0 stable on bupropion XL 150mg daily. Discussed w/pt that she will need to come OFF medication prior to trying to conceive child. Iron defic iency anemia 07762205 D50.9 due for iron studies. colonoscop y completed and stable. Loss of hair 148618786 L 65.9 screening b12 and folate labs due Long-term drug therapy 588765774 Z79.899 routine cmp due Diabetes m ellitus screening 463831149 Z13.1 screening a1c due Cholesterol screening 27 6911026 Z13.220 fasting lipids due Health Concerns Section Related Observation LastModified by Organization Detai ls LastModified Time None Recorded Concern Status LastModified by Organization Details LastModified Time None Recorded Advance Directives Directive N: Payers Insurance Date Sequence Insurance Name Policy Number Policy Howard Covered Member ID Howard Member ID Guarantor Name 04/03/2023 1 [facility] ([place]) [id number] Zohra Chávez [id number] Zohra Chávez 05/01/2023 1 [facility] [id number] Zohra Chávze [id number] Zohra Chávez Notes Date Note Type Note [...] 8 times during the night Not Available [facility] 03/30/2021 00:20:29 02/22/20 22 text/ht ml Back [...] Associated Symptoms:weight gain ( lbs);depression Not Available [facility] 02/25/2022 09:00:13 03/21/20 22 text/ht ml Back [...] straining; no diarrhea; no cramping Not Available [facility] 03/26/2022 09:53:28 03/22/20 23 text/ht ml [...] no hair changes Wellness ANTON Joseph [address] [address], [place], [address], [place] [facility] [place] [facility] 03/28/2023 22:34:51 04/08/20 23 text/ht ml Anxiety/DepressionReported [...] no hair changes wellness ANTON Joseph [address] [address], [place], [address], [facility] 04/30/2023 21:38:53 OBGyn Episode No OBEpisode recorded.
--- OUTSIDE RECORDS SUMMARY | 2024-12-10 11:49 | XMS_ITS | Referral Summary ---
Author Organization [facility] Address [address] [place] [address] Care Team Providers Care Swatch Checker Name Role Phone Unknown, Notinfile Primary Care [...] 05/30/2021 Assessment & Plan (06/18/2022 7:08 PM STEM LEAD FORMER): FNA x 2 benign Stable in size Discussed technician terminal and repeater follow up of benign and stable thyroid [...] intervention Assessment & Plan (05/30/2021 3:42 PM STEM LEAD FORMER): Will obtain outside images to review Plan FNA 06/13 if needed and after images are reviewed Primary hypothyroidism 05/30/2021 Assessment & Plan (05/30/2021 3:43 PM STEM LEAD FORMER): Normal TFT Continue Synthroid dose Hair loss unlikely explained by hypothyroidism given normal function Social History Tobacco Use Types Packs/Day Years Used Date Smoking Tobacco: Never Tobacco Cessation:Counseling Given: Not Answered Comments Unknown Sex and Gender Information Value Date Recorded Sex Assigned at Not on file Legal Sex Female 3:08 PM CDT Gender Identity Female 05/27/2021 3:04 PM [employer] FOR[employer] Sexual Orientation Straight 05/27/2021 3: 04 PM [employer] FORMER Last Filed Vital Signs Vital Sign Reading Time Taken Comments Blood Pressure 112/79 06/18/2022 2:42 PM [employer] Pulse 94 06/18/2022 2:42 PM [employer] Temperature 36.7 C (98 F) 06/18/2022 2:42 PM [employer] Respiratory Rate - - Oxygen Saturation - - Inhaled Oxygen Concentration - - Weight 88 kg (194 lb) 06/18/2022 2:42 PM [employer] LE[employer] FORMER Height 165.1 cm (5' 5) 06/18/2022 2:42 PM [employer] FOR[employer] Body Mass Index 32.28 06/18/2022 2:42 PM [employer] FORMER Plan of Treatment Not on file Insurance [facility] Care Teams Swatch Checker Relationship Specialty Start Date End Date Unknown, Notinfile PCP - General 06/13/22
--- OUTSIDE RECORDS SUMMARY | 2024-12-10 11:49 | XMS_ITS | Data Portability ---
[facility] Organization [facility] Address [address] [place] [address] Assessment No assessment recorded. Plan of Treatment Reminders Order Date Submit Date Provider Last Modified By Organization Details Last Modified Time Details Appointments ANNUAL 30 2024 10:00A M ANTON Joseph Not available Not available Not available Lab lipid panel, serum 2023 024 [facility], [address], [place], [address], 02/18/2024 12:05:56 CMP, serum or plasma 2023 024 [facility], [address], [place], [address], 02/18/2024 12:05:57 CBC w/ auto diff 2023 024 [facility], [address], [place], [address], 02/18/2024 12:05:57 HbA1c (hemoglo bin A1c), blood 2023 024 [facility], [address], [place], [address], 02/18/2024 12:05:57 TSH + free T4, serum 2023 024 [facility], [address], [place], [address], 02/18/2024 12:05:56 T3, free, serum or plasma 2023 024 [facility], [address], [place], [address], 02/18/2024 12:05:57 insulin, serum 2023 024 [facility], [address], [place], [address], 02/18/2024 12:05:57 Referral None recorded . Procedures None recorded . Surgeries None recorded . Imaging None recorded . Medication Orders None recorded . Patient TargetsNo targets recorded. Patient Instructions Encounter Date Encounter Id Patient Instructions Last Modified By Organization Details Last Modified Time 02/10/2024 [id number] A healthy lifestyle: care instructions [email or web address] Not available 02/29/2024 17:44:16 Reason for Referral None Reported. Results Created Date Observation Date Name Description Value Unit Range Abnormal Flag Note LastModifiedBy Organization Detail LastModifiedTime Result Notes None recorded. Problems Name Problem SNOMED Code Status Onset Date Resolution Date Notes Provider Name and Address Organization Details Recorded Time Hypothyroidism 09516759 Active 2023 Irma Leija [facility], [place] - [facility] 4 15:54:10 Body mass index 30+ - obesity 564068321 Active 2023 ANTON Joseph Attn: Jm prieto,[address] [facility], [place], [address], [place] - [facility] 4 17:43:38 Long-term drug therapy Active 2023 ANTON Joseph Attn: Jm prieto,[address] [facility], [place], [address], [place] - [facility] 4 17:44:04 Obesity 230670611 Active 2023 ANTON Joseph Attn: Jm prieto,[address] [facility], [place], [address], [place] [facility] 4 17:44:14 Problem Notes None recorded. Procedures Surgical History Date Name Laterality Status Provider Name and Address Organization Details Recorded Time 1 [facility] 02/10/2024 16:10:11 9 [facility]/10/2024 16:09:36 Imaging Results None recorded. [...] 80 mm[Hg] ANTON Joseph Attn: Accounting,[address] [place], [address], [place] - [facility] 02/10/2024 12:37:02 Date Recorded Body weight Body mass index (BMI) Body height Respiratory rate Oxygen saturation Oxygen saturation in Arterial blood by Pulse oximetry Heart rate Systolic blood pressure Diastolic blood pressure Provider Name and Address Organization Details Last Updated DateTime 4 14641.0 7 g 33.4 kg/m2 165.1 cm 16 /min 98 % 98 % 104 /min 128 mm[Hg] 82 mm[Hg] Irma Leija [facility] 4 11:55:35 Social History Question Answer Notes LastModified by Organizat ion Details LastModified Time Tobacco Smoking Status Never Smoker Irma Leija [facility], [facility] 02/10/2024 11:57:24 Do You Have An Advance Directive? No [email or web address] Information not available 02/10/2024 Are You Blind Or Do You Have Difficulty Seeing? Yes Has Glasses [email or web address] Information not available 02/10/2024 What Is Your Level Of Caffeine Consumption? Moderate [email or web address] Information not available 02/10/2024 In The 14 Days Before Symptom Onset, Have You Had Close Contact With A Laboratory-confir med COVID-19 While That Case Was Ill? No [email or web address] Information not available 02/10/2024 In The 14 Days Before Symptom Onset, Have You Had Close Contact With A Person Who Is Under Investigation For COVID-19 While That Person Was Ill? No [email or web address] Information not available 02/10/2024 Have You Been To An Area Known To Be High Risk For COVID-19? No [email or web address] Information not available 02/10/2024 Are You Deaf Or Do You Have Serious Difficulty Hearing? No [email or web address] Information not available 02/10/2024 What Type Of Diet Are You Following? REGULAR [email or web address] Information not available 02/10/2024 Are There Any Guns Present In Your Home? Yes [email or web address] Information not available 02/10/2024 What Was The Date Of Your Most Recent Tobacco Screening? 02/10/2024 [email or web address] Information not available 02/10/2024 What Is Your Relationship Status? [email or web address] Information not available 02/10/2024 Do You Use Your Seat Belt Or Car Seat Routinely? Yes [email or web address] Information not available 02/10/2024 Do You Have Smoke And Carbon Monoxide Detectors In Your Home? Yes [email or web address] Information not available 02/10/2024 Do You Use Sunscreen Routinely? Yes [email or web address] Information not available 02/10/2024 Has Tobacco Cessation Counseling Been Provided? Yes [email or web address] Information not available 02/10/2024 On What Date Was Tobacco Cessation Counseling Provided? 02/10/2024 [email or web address] Information not available 02/10/2024 Sex: Unknown Functional Status Question Answer Note LastModified by Organizat ion Details LastModified Time Do you use any illicit or recreational drugs? No [email or web address] Information not available 02/10/2024 Do you or have you ever used any other forms of tobacco or nicotine? No Information not available 02/10/2024 What is your level of alcohol consumption? Occasional Information not available 02/10/2024 Are you currently employed? Yes [email or web address] Information not available 02/10/2024 Are you able to care for yourself? Yes [email or web address] Information n ot available 02/10/2024 What is your exercise level? Occasional [email or web address] Information not available 02/10/2024 Mental Status None recorded. Family History Relationship Description Onset Age of this Age Resolved Age Notes LastModified by Organization Details LastModified Time Father Myocardial infarction [email or web address] Not available 01/29 11:57:02 Brother Diabetes mellitus [email or web address] Not available 02/09 16:09:56 Medical History Condition Response Thyroid Problems Y Gynecological HistoryNo gynecological history recorded. Obstetrics History GPAL:G 0 P 0 0 0 0 Past Encounters Encounter ID Performer Location Encounter Start Date Encounter Closed Date Diagnosis/Indication Diagnosis SNOMED-CT Code Diagnosis ICD10 Code Diagnosis Note [id number] Sukhi Browne MD [place] [address] [facility] [address] [place] [address] 02/10/2024 11:44:34 02/10/2024 13:01:48 Body mass index 30+ - obesity 115285656 Z68.33 BMI is 33.4. Screening fasting insulin lab ordered Adult [facility] examination 098810905 Z00.00 Annual wellness exam complete Cholesterol screening 27 9535140 Z13.220 Annual fasting lipid panel ordered Diabetes m ellitus screening 654954208 Z13.1 Diabetes screening ordered Hypothyroidism 30249426 E03.9 Continue Synthroid 112 mcg daily and due for updated thyroid function lab panel Long-term drug therapy 968736192 Z79.899 Routine CBC and CMP due Obesity 182424406 E66.8 Patient is actively losing weight and has improve diet and exercise. Health Concerns Section Related Observation LastModified by Organization Detai ls LastModified Time None Recorded Concern Status LastModified by Organization Details LastModified Time None Recorded Advance Directives Directive N: Payers Insurance Date Sequence Insurance Name Policy Number Policy Howard Covered Member ID Howard Member ID Guarantor Name 03/03/2024 1 [place] [id number] Josh Chávez [id number] Zohra Saira Notes Date Note Type [...] mcg daily ANTON Joseph Attn: [address] [place], [address], [place] [facility] 02/29/2024 17:44:32 OBGyn Episode No OBEpisode recorded.
== END 2024-12-10 10:52 | disposition home or self-care (01) ==
LOC: ANHLAB 10:52
PROVIDERS: PCP Physician Assistant; Visit Provider Student in an Organized Health Care Education/Training Program
DX: N92.6 Irregular menstruation, unspecified (principal)
CPT/HCPCS: 36415; 84702

== ENCOUNTER 2025-01-08 10:23 | Outpatient (CLI) | payer OTHER, SELFPAY ==
--- OUTSIDE RECORDS SUMMARY | 2025-01-08 10:27 | XMS_ITS | Referral Summary ---
Author Organization [facility] Address [address] [place] [address] Care Team Providers Care Cobbler Upper Name Role Phone Unknown, Notinfile Primary Care [...] 05/30/2021 Assessment & Plan (06/18/2022 7:08 PM KILN STOKER): FNA x 2 benign Stable in size Discussed electrician sound follow up of benign and stable thyroid [...] intervention Assessment & Plan (05/30/2021 3:42 PM KILN STOKER): Will obtain outside images to review Plan FNA 06/13 if needed and after images are reviewed Primary hypothyroidism 05/30/2021 Assessment & Plan (05/30/2021 3:43 PM KILN STOKER): Normal TFT Continue Synthroid dose Hair loss unlikely explained by hypothyroidism given normal function Social History Tobacco Use Types Packs/Day Years Used Date Smoking Tobacco: Never Tobacco Cessation:Counseling Given: Not Answered Comments Unknown Sex and Gender Information Value Date Recorded Sex Assigned at Not on file Legal Sex Female 3:08 PM CDT Gender Identity Female 05/27/2021 3:04 PM KILN STOKER Sexual Orientation Straight 05/27/2021 3: 04 PM KILN STOKER Last Filed Vital Signs Vital Sign Reading Time Taken Comments Blood Pressure 112/79 06/18/2022 2:42 PM KILN STOKER Pulse 94 06/18/2022 2:42 PM KILN STOKER Temperature 36.7 C (98 F) 06/18/2022 2:42 PM KILN STOKER Respiratory Rate - - Oxygen Saturation - - Inhaled Oxygen Concentration - - Weight 88 kg (194 lb) 06/18/2022 2:42 PM KILN STOKER Height 165.1 cm (5' 5) 06/18/2022 2:42 PM KILN STOKER Body Mass Index 32.28 06/18/2022 2:42 PM KILN STOKER Plan of Treatment Not on file Insurance [facility] [employer] [facility] Care Teams Cobbler Upper Relationship Specialty Start Date End Date Unknown, Notinfile PCP - General 06/13/22
--- OUTSIDE RECORDS SUMMARY | 2025-01-08 10:27 | XMS_ITS | Encounter Summary ---
Author Organization [facility] Address [address] [place] [address] Phone Care Team Providers Care Neurologist Name Role Phone Unknown, Notinfile Primary Care [...] Gender Identity Female 05/27/2021 3:04 PM SENIOR C SOFTWARE ENGINEER Sexual Orientation Straight 05/27/2021 3: 04 PM SENIOR C SOFTWARE ENGINEER documented as of this encounter Plan of Treatment Not on file documented as of this encounter Procedures Procedure Name Priority Date/Time Associated Diagnosis Comments SCAN - LABS 09/26/2018 documented in this encounter Results * SCAN - LABS (09/26/2018) us Provider Scanning Final Result documented in this encounter Visit Diagnoses Not on filedocumented in this encounter Care Teams Neurologist Relationship Specialty Start Date End Date Unknown, Lisa PCP - General 06/13/22 documented as of this encounter
--- OUTSIDE RECORDS SUMMARY | 2025-01-08 10:27 | XMS_ITS | Clinical Summary ---
Author Organization [facility] Address [address] [place] [address] Care Team Providers Care Pot Pusher Name Role Phone Unknown, Notinfile Primary Care [...] 05/30/2021 Assessment & Plan (06/18/2022 7:08 PM REAL TIME OPERATOR): FNA x 2 benign Stable in size Discussed longitudinal float operator follow up of benign and stable thyroid [...] intervention Assessment & Plan (05/30/2021 3:42 PM REAL TIME OPERATOR): Will obtain outside images to review Plan FNA 06/13 if needed and after images are reviewed Primary hypothyroidism 05/30/2021 Assessment & Plan (05/30/2021 3:43 PM REAL TIME OPERATOR): Normal TFT Continue Synthroid dose Hair [...] CDT Gender Identity Female 05/27/2021 3:04 PM REAL TIME OPERATOR Sexual Orientation Straight 05/27/2021 3: 04 PM REAL TIME OPERATOR Obstetrics History Last Filed Vital Signs Vital Sign Reading Time Taken Comments Blood Pressure 112/79 06/18/2022 2:42 PM REAL TIME OPERATOR Pulse 94 06/18/2022 2:42 PM REAL TIME OPERATOR Temperature 36.7 C (98 F) 06/18/2022 2:42 PM REAL TIME OPERATOR Respiratory Rate - - Oxygen Saturation - - Inhaled Oxygen Concentration - - Weight 88 kg (194 lb) 06/18/2022 2:42 PM REAL TIME OPERATOR Height 165.1 cm (5' 5) 06/18/2022 2:42 PM REAL TIME OPERATOR Body Mass Index 32.28 06/18/2022 2:42 PM REAL TIME OPERATOR Plan of Treatment Health Maintenance Due [...] patient's age to complete this topic Insurance [employer] [place] [employer] [place] Care Teams Pot Pusher Relationship Specialty Start Date End Date Unknown, Notinfile PCP - General 06/13/22
--- OUTSIDE RECORDS SUMMARY | 2025-01-08 10:27 | XMS_ITS | Data Portability ---
Author Organization [place] [facility] [employer], Main Office Address [address] [place] [address] Assessment No assessment recorded. Plan of Treatment Reminders Order Date Submit Date Provider Last Modified By Organization Details Last Modified Time Details Appointments None recorded. Lab CMP, serum or plasma [employer] [facility], [address], [place], [address], 3 09:15:46 lipid panel, serum [employer] [facility], [address], [place], [address], 3 09:15:45 vitamin B12 + folate, serum or blood 023 [employer] [facility], [address], [place], [address], 3 09:15:50 HbA1c (hemoglob in A1c), blood 023 [employer] [facility], [address], [place], [address], 3 09:15:48 TSH + free T4, serum 023 [employer] [facility], [address], [place], [address], 3 09:15:45 T3, free, serum or plasma 023 023 [employer] [facility], [address], [place], [address], 3 09:15:48 iron + TIBC + ferritin, serum 023 [employer]BY [employer] [facility], [address], [place], [address], 3 09:15:43 CBC w/ auto diff ROBBY [employer] [facility], [address], [place], [address], 3 09:15:49 Referral None recorded. Procedures None [...] pg/mL will have sympt oms. Not Available [employer] [facility] [address] [place], [address], 03/14/2021 13:23:04 03/13/2003/14/2021 VITAM IN B12/F OLATE , SERUM PANEL folate, serum 17.9 NG/mL normal Refer ence Range Low: <3.4 Borde rline : 3.4-5 .4 Richelle l: >5.4 Not Available [address], [address], 03/14/2021 13:23:04 03/13/2003/14/2021 CBC (INCL UDES DIFF/ PLT) white blood cell count 6.4 thous and/u L 3.8-10 .8 normal Not Available [address], [address], 03/14/2021 13:23:03 03/13/2003/14/2021 CBC (INCL UDES DIFF/ PLT) red blood cell count 4.67 shade on/uL 3.80-5 .10 normal Not Available [address], [address], 03/14/2021 13:23:03 03/13/2003/14/2021 CBC (INCL UDES DIFF/ PLT) hemoglobin 14.6 g/dL 11.7-1 5.5 normal Not Available [address], [address], 03/14/2021 13:23:03 03/13/2003/14/2021 CBC (INCL UDES DIFF/ PLT) hematocrit 43.9 % 35.0-4 5.0 normal Not Available [address], [address], 03/14/2021 13:23:03 03/13/2003/14/2021 CBC (INCL UDES DIFF/ PLT) MCV 94.0 fL 80.0-1 00.0 normal Not Available [address], [address], 03/14/2021 13:23:03 03/13/2003/14/2021 CBC (INCL UDES DIFF/ PLT) MCH 31.3 pg 27.0-3 3.0 normal Not Available [address], [address], 03/14/2021 13:23:03 03/13/20 21 03/14/2021 CBC (INCL UDES DIFF/ PLT) MCHC 33.3 g/dL 32.0-3 6.0 normal Not Available [address], [address], 03/14/2021 13:23:03 03/13/2003/14/2021 CBC (INCL UDES DIFF/ PLT) RDW 12.7 % 11.0-1 5.0 normal Not Available [address], [address], 03/14/2021 13:23:03 03/13/2003/14/2021 CBC (INCL UDES DIFF/ PLT) platelet count 177 thous and/u L 140-40 0 normal Not Available [address], [address], 03/14/2021 13:23:03 03/13/2003/14/2021 CBC (INCL UDES DIFF/ PLT) MPV 11.8 fL 7.5-12 .5 normal Not Available [address], [address], 03/14/2021 13:23:03 03/13/2003/14/2021 CBC (INCL UDES DIFF/ PLT) absolute neutrophils 4122 cells /uL 1500-7 800 normal Not Available [address], [address], 03/14/2021 13:23:03 03/13/2003/14/2021 CBC (INCL UDES DIFF/ PLT) absolute lymphocytes 1760 cells /uL 850-39 00 normal Not Available [address], [address], 03/14/2021 13:23:03 03/13/2003/14/2021 CBC (INCL UDES DIFF/ PLT) absolute monocytes 339 cells /uL 200-95 0 normal Not Available [address], [address], 03/14/2021 13:23:03 03/13/20 21 03/14/2021 CBC (INCL UDES DIFF/ PLT) absolute eosinophils 147 cells /uL 15-500 normal Not Available [address], [address], 03/14/2021 13:23:03 03/13/20 21 03/14/2021 CBC (INCL UDES DIFF/ PLT) absolute basophils 32 cells /uL 0-200 normal Not Available [address], [address], 03/14/2021 13:23:03 03/13/20 21 03/14/2021 CBC (INCL UDES DIFF/ PLT) neutrophils 64.4 % normal Not Available [address], [address], 03/14/2021 13:23:03 03/13/20 21 03/14/2021 CBC (INCL UDES DIFF/ PLT) lymphocytes 27.5 % normal Not Available [address], [address], 03/14/2021 13:23:03 03/13/20 21 03/14/2021 CBC (INCL UDES DIFF/ PLT) monocytes 5.3 % normal Not Available [address], [address], 03/14/2021 13:23:03 03/13/20 21 03/14/2021 CBC (INCL UDES DIFF/ PLT) eosinophils 2.3 % normal Not Available [address], [address], 03/14/2021 13:23:03 03/13/20 21 03/14/2021 CBC (INCL UDES DIFF/ PLT) basophils 0.5 % normal Not Available [facility] [address] [address], [place], [address], 03/14/2021 13:23:03 03/13/20 21 03/14/2021 T3, FREE T3, free 3.3 pg/mL 2.3-4. 2 normal Not Available [address], [address], 03/14/2021 13:23:02 03/13/20 21 03/14/2021 COMPR EHENS MERE METAB OLIC PANEL glucose 97 mg/dL 65-99 normal Fasti ng refer ence inter lizbet Not Available [address], [address], 03/14/2021 13:23:01 03/13/20 21 03/14/2021 COMPR EHENS MERE METAB OLIC PANEL urea nitrogen (BUN) 12 mg/dL 7-25 normal Not Available [address], [address], 03/14/2021 13:23:01 03/13/20 21 03/14/2021 COMPR EHENS MERE METAB OLIC PANEL creatinine 0.79 mg/dL 0.50-1 .10 normal Not Available [address], [address], 03/14/2021 13:23:01 03/13/20 21 03/14/2021 COMPR EHENS MERE METAB OLIC PANEL eGFR non-afr. ghanaian 102 mL/mi n/1.7 3m2 > or = 60 normal Not Available [address], [address], 03/14/2021 13:23:01 03/13/20 21 03/14/2021 COMPR EHENS MERE METAB OLIC PANEL eGFR 118 mL/mi n/1.7 3m2 > or = 60 normal Not Available [address], [address], 03/14/2021 13:23:01 03/13/20 21 03/14/2021 COMPR EHENS MERE METAB OLIC PANEL BUN/creatini ne ratio not applic able (calc ) 6-22 Not Available [address], [address], 03/14/2021 13:23:01 03/13/20 21 03/14/2021 COMPR EHENS MERE METAB OLIC PANEL sodium 140 mmol/ L 135-14 6 normal Not Available [address], [address], 03/14/2021 13:23:01 03/13/20 21 03/14/2021 COMPR EHENS MERE METAB OLIC PANEL potassium 4.4 mmol/ L 3.5-5. 3 normal Not Available [address], [address], 03/14/2021 13:23:01 03/13/20 21 03/14/2021 COMPR EHENS MERE METAB OLIC PANEL chloride 107 mmol/ L 98-110 normal Not Available [address], [address], 03/14/2021 13:23:01 03/13/20 21 03/14/2021 COMPR EHENS MERE METAB OLIC PANEL carbon dioxide 24 mmol/ L 20-32 normal Not Available [address], [address], 03/14/2021 13:23:01 03/13/20 21 03/14/2021 COMPR EHENS MERE METAB OLIC PANEL calcium 9.5 mg/dL 8.6-10 .2 normal Not Available [address], [address], 03/14/2021 13:23:01 03/13/20 21 03/14/2021 COMPR EHENS MERE METAB OLIC PANEL protein, total 7.1 g/dL 6.1-8. 1 normal Not Available [address] [address] [place], [address], 03/14/2021 13:23:01 03/13/20 21 03/14/2021 COMPR EHENS MERE METAB OLIC PANEL albumin 4.3 g/dL 3.6-5. 1 normal Not Available [address], [address], 03/14/2021 13:23:01 03/13/20 21 03/14/2021 COMPR EHENS MERE METAB OLIC PANEL globulin 2.8 g/dL_ (calc ) 1.9-3. 7 normal Not Available [address], [address], 03/14/2021 13:23:01 03/13/20 21 03/14/2021 COMPR EHENS MERE METAB OLIC PANEL albumin/glob ulin ratio 1.5 (calc ) 1.0-2. 5 normal Not Available [address] [address] [place], [address], 03/14/2021 13:23:01 03/13/20 21 03/14/2021 COMPR EHENS MERE METAB OLIC PANEL bilirubin, total 0.6 mg/dL 0.2-1. 2 normal Not Available [address], [address], 03/14/2021 13:23:01 03/13/2003/14/2021 COMPR EHENS MERE METAB OLIC PANEL alkaline phosphatase 83 U/L 31-125 normal Not Available [address] [address] [place], [address], 03/14/2021 13:23:01 03/13/2003/14/2021 COMPR EHENS MERE METAB OLIC PANEL AST 15 U/L 10-30 normal Not Available [address], [address], 03/14/2021 13:23:01 03/13/20 21 03/14/2021 COMPR EHENS MERE METAB OLIC PANEL ALT 14 U/L 6-29 normal Not Available [address], [address], 03/14/2021 13:23:01 03/13/20 21 03/14/2021 LIPID PANEL WITH RATIO S cholesterol, total 164 mg/dL <200 normal Not Available [address], [address], 03/14/2021 13:23:01 03/13/2003/14/2021 LIPID PANEL WITH RATIO S HDL cholesterol 48 mg/dL > or = 50 low Not Available [address], [address], 03/14/2021 13:23:01 03/13/20 21 03/14/2021 LIPID PANEL WITH RATIO S triglyceride s 102 mg/dL <150 normal Not Available [address], [address], 03/14/2021 13:23:01 03/13/2003/14/2021 LIPID PANEL WITH RATIO S LDL-choleste rol 96 mg/dL _(shawna c) normal Refer ence range : <100 Wanda able range <100 mg/dL for prima ry preve ntion ; <70 mg/dL for patie nts with CHD or diabe tic patie nts with > or = 2 CHD risk facto rs. LDL-C is now calcu lated using the Delma n-Hop kins calcu john n, which is a valid ated novel jose juan briceño than the Fried jackie equat ion in the estim ation of LDL-C . Delma walker SS et al. CARMENZA. 2013; 310(1 9): 2061- 2068 (http ://ed ucati on.Qu estDi susanos tics. com/f aq/FA Q164) Not Available [address] [place], [address], 03/14/2021 13:23:01 03/13/2003/14/2021 LIPID PANEL WITH RATIO S chol/HDLC ratio 3.4 (calc ) <5.0 normal Not Available [facility] [address], [address], 03/14/2021 13:23:01 03/13/2003/14/2021 LIPID PANEL WITH RATIO S LDL/HDL ratio 2.0 (calc ) Below avera ge Risk: <2.34 [place] ge Risk: 2.35- 4.12 Moder ate Risk: 4.13- 5.56 High Risk: >5.57 Not Available [address], [address], 03/14/2021 13:23:01 03/13/2003/14/2021 LIPID PANEL WITH RATIO S non HDL cholesterol 116 mg/dL _(shawna c) <130 normal For patie nts with diabe shahla plus 1 major ASCVD risk facto r, treat ing to a non-H DL-C goal of <100 mg/dL (LDL- C of <70 mg/dL ) is michael iraheta c optio n. Not Available [address], [address], 03/14/2021 13:23:01 03/13/2003/14/2021 TSH+F REE T4 TSH 1.28 mIU/L normal Refer ence Range > or = 20 Years 0.40- 4.50 Pregn paloma Range s First trime ster 0.26- 2.66 Secon d trime ster 0.55- 2.73 Third trime ster 0.43- 2.91 Not Available [address] [address] [place], [address], 03/14/2021 13:22:59 03/13/2003/14/2021 TSH+F REE T4 T4, free 1.4 NG/dL 0.8-1. 8 normal Not Available [address], [address], 03/14/2021 13:22:59 03/13/2003/14/2021 IRON, TIBC AND SALINAS TIN PANEL iron, total 121 mcg/d L 40-190 normal Not Available [address], [address], 03/14/2021 13:22:57 03/13/20 21 03/14/2021 IRON, TIBC AND SALINAS TIN PANEL iron binding capacity 378 mcg/d L_(ca lc) 250-45 0 normal Not Available [address], [address], 03/14/2021 13:22:57 03/13/20 21 03/14/2021 IRON, TIBC AND SALINAS TIN PANEL % saturation 32 %_(ca lc) 16-45 normal Not Available [address], [address], 03/14/2021 13:22:57 03/13/2003/14/2021 IRON, TIBC AND SALINAS TIN PANEL ferritin 22 NG/mL 16-154 normal Not Available [address], [address], 03/14/2021 13:22:57 02/27/20 22 02/27/2022 CBC (INCL UDES DIFF/ PLT) white blood cell count 5.4 thous and/u L 3.8-10 .8 normal Not Available [address], [address], 02/27/2022 05:55:42 02/27/20 22 02/27/2022 CBC (INCL UDES DIFF/ PLT) red blood cell count 4.87 shade on/uL 3.80-5 .10 normal Not Available [address], [address], 02/27/2022 05:55:42 02/27/20 22 02/27/2022 CBC (INCL UDES DIFF/ PLT) hemoglobin 11.4 g/dL 11.7-1 5.5 low Not Available [address], [address], 02/27/2022 05:55:42 02/27/20 22 02/27/2022 CBC (INCL UDES DIFF/ PLT) hematocrit 36.7 % 35.0-4 5.0 normal Not Available [facility] [address], [address], 02/27/2022 05:55:42 02/27/20 22 02/27/2022 CBC (INCL UDES DIFF/ PLT) MCV 75.4 fL 80.0-1 00.0 low Not Available [address], [address], 02/27/2022 05:55:42 02/27/20 22 02/27/2022 CBC (INCL UDES DIFF/ PLT) MCH 23.4 pg 27.0-3 3.0 low Not Available [facility] [address], [address], 02/27/2022 05:55:42 02/27/20 22 02/27/2022 CBC (INCL UDES DIFF/ PLT) MCHC 31.1 g/dL 32.0-3 6.0 low Not Available [address], [address], 02/27/2022 05:55:42 02/27/20 22 02/27/2022 CBC (INCL UDES DIFF/ PLT) RDW 17.1 % 11.0-1 5.0 high Not Available [facility] [address], [address], 02/27/2022 05:55:42 02/27/20 22 02/27/2022 CBC (INCL UDES DIFF/ PLT) platelet count 210 thous and/u L 140-40 0 normal Not Available [address], [address], 02/27/2022 05:55:42 02/27/20 22 02/27/2022 CBC (INCL UDES DIFF/ PLT) MPV 11.3 fL 7.5-12 .5 normal Not Available [address], [address], 02/27/2022 05:55:42 02/27/20 22 02/27/2022 CBC (INCL UDES DIFF/ PLT) absolute neutrophils 3127 cells /uL 1500-7 800 normal Not Available [address], [address], 02/27/2022 05:55:42 02/27/20 22 02/27/2022 CBC (INCL UDES DIFF/ PLT) absolute lymphocytes 1701 cells /uL 850-39 00 normal Not Available [address], [address], 02/27/2022 05:55:42 02/27/20 22 02/27/2022 CBC (INCL UDES DIFF/ PLT) absolute monocytes 432 cells /uL 200-95 0 normal Not Available [address], [address], 02/27/2022 05:55:42 02/27/20 22 02/27/2022 CBC (INCL UDES DIFF/ PLT) absolute eosinophils 103 cells /uL 15-500 normal Not Available [facility] [address], [address], 02/27/2022 05:55:42 02/27/20 22 02/27/2022 CBC (INCL UDES DIFF/ PLT) absolute basophils 38 cells /uL 0-200 normal Not Available [facility] [address], [address], 02/27/2022 05:55:42 02/27/20 22 02/27/2022 CBC (INCL UDES DIFF/ PLT) neutrophils 57.9 % normal Not Available [address], [address], 02/27/2022 05:55:42 02/27/20 22 02/27/2022 CBC (INCL UDES DIFF/ PLT) lymphocytes 31.5 % normal Not Available [address], [address], 02/27/2022 05:55:42 02/27/20 22 02/27/2022 CBC (INCL UDES DIFF/ PLT) monocytes 8.0 % normal Not Available [address], [address], 02/27/2022 05:55:42 02/27/20 22 02/27/2022 CBC (INCL UDES DIFF/ PLT) eosinophils 1.9 % normal Not Available [address], [address], 02/27/2022 05:55:42 02/27/20 22 02/27/2022 CBC (INCL UDES DIFF/ PLT) basophils 0.7 % normal Not Available [address], [address], 02/27/2022 05:55:42 02/27/20 22 02/27/2022 T3, FREE T3, free 3.1 pg/mL 2.3-4. 2 normal Not Available [address], [address], 02/27/2022 05:55:41 02/27/20 22 02/27/2022 COMPR EHENS MERE METAB OLIC PANEL glucose 88 mg/dL 65-99 normal Fasti ng refer ence inter lizbet Not Available [address], [address], 02/27/2022 05:55:41 02/27/20 22 02/27/2022 COMPR EHENS MERE METAB OLIC PANEL urea nitrogen (BUN) 16 mg/dL 7-25 normal Not Available [address], [address], 02/27/2022 05:55:41 02/27/20 22 02/27/2022 COMPR EHENS MERE METAB OLIC PANEL creatinine 0.79 mg/dL 0.50-0 .96 normal Not Available [address], [address], 02/27/2022 05:55:41 02/27/20 22 02/27/2022 COMPR EHENS MERE METAB OLIC PANEL eGFR 104 mL/mi n/1.7 3m2 > or = 60 normal The eGFR is based on the CKD-E PI 2020 equat ion. To calcu late the new eGFR from a previ ous Creat inine or Cysta tin C resul t, go to https ://misty lopez.saravanan aragon.daniela bustillo/lory valladares s/ kdoqi /gfr% 5Fcal culat or Not Available [address], [address], 02/27/2022 05:55:41 02/27/20 22 02/27/2022 COMPR EHENS MERE METAB OLIC PANEL BUN/creatini ne ratio not applic able (calc ) 6-22 Not Available [address], [address], 02/27/2022 05:55:41 02/27/20 22 02/27/2022 COMPR EHENS MERE METAB OLIC PANEL sodium 141 mmol/ L 135-14 6 normal Not Available [address], [address], 02/27/2022 05:55:41 02/27/20 22 02/27/2022 COMPR EHENS MERE METAB OLIC PANEL potassium 4.8 mmol/ L 3.5-5. 3 normal Not Available [address], [address], 02/27/2022 05:55:41 02/27/20 22 02/27/2022 COMPR EHENS MERE METAB OLIC PANEL chloride 112 mmol/ L 98-110 high Not Available [address], [address], 02/27/2022 05:55:41 02/27/20 22 02/27/2022 COMPR EHENS MERE METAB OLIC PANEL carbon dioxide 24 mmol/ L 20-32 normal Not Available [address], [address], 02/27/2022 05:55:41 02/27/20 22 02/27/2022 COMPR EHENS MERE METAB OLIC PANEL calcium 9.2 mg/dL 8.6-10 .2 normal Not Available [address], [address], 02/27/2022 05:55:41 02/27/20 22 02/27/2022 COMPR EHENS MERE METAB OLIC PANEL protein, total 6.6 g/dL 6.1-8. 1 normal Not Available [address], [address], 02/27/2022 05:55:41 02/27/20 22 02/27/2022 COMPR EHENS MERE METAB OLIC PANEL albumin 4.0 g/dL 3.6-5. 1 normal Not Available [address], [address], 02/27/2022 05:55:41 02/27/20 22 02/27/2022 COMPR EHENS MERE METAB OLIC PANEL globulin 2.6 g/dL_ (calc ) 1.9-3. 7 normal Not Available [address], [address], 02/27/2022 05:55:41 02/27/20 22 02/27/2022 COMPR EHENS MERE METAB OLIC PANEL albumin/glob ulin ratio 1.5 (calc ) 1.0-2. 5 normal Not Available [address], [address], 02/27/2022 05:55:41 02/27/20 22 02/27/2022 COMPR EHENS MERE METAB OLIC PANEL bilirubin, total 0.3 mg/dL 0.2-1. 2 normal Not Available [address], [address], 02/27/2022 05:55:41 02/27/20 22 02/27/2022 COMPR EHENS MERE METAB OLIC PANEL alkaline phosphatase 77 U/L 31-125 normal Not Available [address], [address], 02/27/2022 05:55:41 02/27/20 22 02/27/2022 COMPR EHENS MERE METAB OLIC PANEL AST 15 U/L 10-30 normal Not Available [address], [address], 02/27/2022 05:55:41 02/27/20 22 02/27/2022 COMPR EHENS MERE METAB OLIC PANEL ALT 22 U/L 6-29 normal Not Available [address], [address], 02/27/2022 05:55:41 02/27/20 22 02/27/2022 LIPID PANEL WITH RATIO S cholesterol, total 154 mg/dL <200 normal Not Available [address], [address], 02/27/2022 05:55:40 02/27/20 22 02/27/2022 LIPID PANEL WITH RATIO S HDL cholesterol 54 mg/dL > or = 50 normal Not Available [address], [place], [address], 02/27/2022 05:55:40 02/27/20 22 02/27/2022 LIPID PANEL WITH RATIO S triglyceride s 68 mg/dL <150 normal Not Available [facility] [address], [address], 02/27/2022 05:55:40 02/27/20 22 02/27/2022 LIPID PANEL [...] 9): 2061- 2068 (http ://ed ucati on.Qu charisseOsper. com/f aq/FA Q164) Not Available [address], [address], 02/27/2022 05:55:40 02/27/20 22 02/27/2022 LIPID PANEL WITH RATIO S chol/HDLC ratio 2.9 (calc ) <5.0 normal Not Available [address], [address], 02/27/2022 05:55:40 02/27/20 22 02/27/2022 LIPID PANEL WITH RATIO S LDL/HDL ratio 1.6 (calc ) Below avera ge Risk: <2.34 [place] ge Risk: 2.35- 4.12 Moder ate Risk: 4.13- 5.56 High Risk: >5.57 Not Available [address], [address], 02/27/2022 05:55:40 02/27/20 22 02/27/2022 LIPID PANEL WITH RATIO S non HDL cholesterol 100 mg/dL _(shawna c) <130 normal For patie nts with diabe shahla plus 1 major ASCVD risk facto r, treat ing to a non-H DL-C goal of <100 mg/dL (LDL- C of <70 mg/dL ) is consi daned a thera peuti c optio n. Not Available [address], [address], 02/27/2022 05:55:40 02/27/2002/27/2022 TSH+F REE T4 TSH 2.25 mIU/L normal Refer ence Range > or = 20 Years 0.40- 4.50 Pregn paloma Range s First trime ster 0.26- 2.66 Secon d trime ster 0.55- 2.73 Third trime ster 0.43- 2.91 Not Available [address], [address], 02/27/2022 05:55:39 02/27/2002/27/2022 TSH+F REE T4 T4, free 1.1 NG/dL 0.8-1. 8 normal Not Available [address], [address], 02/27/2022 05:55:39 04/09/20 23 04/10/2023 IRON, TIBC AND SALINAS TIN PANEL iron, total 68 mcg/d L 40-190 normal Not Available [facility] [address], [address], 04/10/2023 09:15:43 04/09/2004/10/2023 IRON, TIBC AND SALINAS TIN PANEL iron binding capacity 346 mcg/d L_(ca lc) 250-45 0 normal Not Available [facility] [address], [address], 04/10/2023 09:15:43 04/09/20 23 04/10/2023 IRON, TIBC AND SALINAS TIN PANEL % saturation 20 %_(ca lc) 16-45 normal Not Available [address], [address], 04/10/2023 09:15:43 04/09/20 23 04/10/2023 IRON, TIBC AND SALINAS TIN PANEL ferritin 33 NG/mL 16-154 normal Not Available [address], [address], 04/10/2023 09:15:43 04/09/2004/10/2023 TSH+F REE T4 TSH 0.21 mIU/L low Refer ence Range > or = 20 Years 0.40- 4.50 Pregn paloma Range s First trime ster 0.26- 2.66 Secon d trime ster 0.55- 2.73 Third trime ster 0.43- 2.91 Not Available [address], [address], 04/10/2023 09:15:44 04/09/2004/10/2023 TSH+F REE T4 T4, free 1.5 NG/dL 0.8-1. 8 normal Not Available [address], [address], 04/10/2023 09:15:44 04/09/20 23 04/10/2023 LIPID PANEL WITH RATIO S cholesterol, total 165 mg/dL <200 normal Not Available [address], [address], 04/10/2023 09:15:45 04/09/2004/10/2023 LIPID PANEL WITH RATIO S HDL cholesterol 48 mg/dL > or = 50 low Not Available [address], [address], 04/10/2023 09:15:45 04/09/2004/10/2023 LIPID PANEL WITH RATIO S triglyceride s 90 mg/dL <150 normal Not Available [address], [address], 04/10/2023 09:15:45 04/09/2004/10/2023 LIPID PANEL WITH RATIO S LDL-choleste rol 99 mg/dL _(shawna c) normal Refer ence range : <100 Wanda able range <100 mg/dL for prima ry preve ntion ; <70 mg/dL for patie nts with CHD or diabe tic patie nts with > or = 2 CHD risk facto rs. LDL-C is now calcu lated using the Delma n-Hop kins calcu john n, which is a valid ated novel metho d provi ding darlene r accur acy than the Fried jackie equat ion in the estim ation of LDL-C . Delma walker SS et al. CARMENZA. 2013; 310(1 9): 2061- 2068 (http ://ed ucati on.Qu charisseDi [employer]. com/f aq/FA Q164) Not Available [address], [address], 04/10/2023 09:15:45 04/09/2004/10/2023 LIPID PANEL WITH RATIO S chol/HDLC ratio 3.4 (calc ) <5.0 normal Not Available [address], [address], 04/10/2023 09:15:45 04/09/2004/10/2023 LIPID PANEL WITH RATIO S LDL/HDL ratio 2.1 (calc ) Below avera ge Risk: <2.34 [place] ge Risk: 2.35- 4.12 Moder ate Risk: 4.13- 5.56 High Risk: >5.[address] [facility] [address] [address] [place], [address], 04/10/2023 09:15:45 04/09/2004/10/2023 LIPID PANEL WITH RATIO S non HDL cholesterol 117 mg/dL _(shawna c) <130 normal For patie nts with diabe shahla plus 1 major ASCVD risk facto r, treat ing to a non-H DL-C goal of <100 mg/dL (LDL- C of <70 mg/dL ) is [facility] optio n. Not Available [address] [place] [address] [place], [address], 04/10/2023 09:15:45 04/09/2004/10/2023 COMPR EHENS MERE METAB OLIC PANEL glucose 80 mg/dL 65-99 normal Fasti ng refer ence inter lizbet Not Available [address] [address] [place], [address], 04/10/2023 09:15:46 04/09/2004/10/2023 COMPR EHENS MERE METAB OLIC PANEL urea nitrogen (BUN) 13 mg/dL 7-25 normal Not Available [address] [address] [place], [address], 04/10/2023 09:15:46 04/09/2004/10/2023 COMPR EHENS MERE METAB OLIC PANEL creatinine 0.66 mg/dL 0.50-0 .97 normal Not Available [address] [address] [place], [address], 04/10/2023 09:15:46 04/09/2004/10/2023 COMPR EHENS MERE METAB OLIC PANEL eGFR 121 mL/mi n/1.7 3m2 > or = 60 normal Not Available [address] [place], [address], 04/10/2023 09:15:46 04/09/2004/10/2023 COMPR EHENS MERE METAB OLIC PANEL BUN/creatini ne ratio SEE NOTE: (calc ) 6-22 Not Repor charmaine: BUN and Creat inine are withi n refer ence range . Not Available [address], [address], 04/10/2023 09:15:46 04/09/2004/10/2023 COMPR EHENS MERE METAB OLIC PANEL sodium 139 mmol/ L 135-14 6 normal Not Available [address], [address], 04/10/2023 09:15:46 04/09/2004/10/2023 COMPR EHENS MERE METAB OLIC PANEL potassium 4.0 mmol/ L 3.5-5. 3 normal Not Available [address], [address], 04/10/2023 09:15:46 04/09/2004/10/2023 COMPR EHENS MERE METAB OLIC PANEL chloride 106 mmol/ L 98-110 normal Not Available [address], [address], 04/10/2023 09:15:46 04/09/2004/10/2023 COMPR EHENS MERE METAB OLIC PANEL carbon dioxide 24 mmol/ L 20-32 normal Not Available [address], [address], 04/10/2023 09:15:46 04/09/2004/10/2023 COMPR EHENS MERE METAB OLIC PANEL calcium 9.0 mg/dL 8.6-10 .2 normal Not Available [address], [address], 04/10/2023 09:15:46 04/09/2004/10/2023 COMPR EHENS MERE METAB OLIC PANEL protein, total 6.7 g/dL 6.1-8. 1 normal Not Available [address], [address], 04/10/2023 09:15:46 04/09/2004/10/2023 COMPR EHENS MERE METAB OLIC PANEL albumin 4.2 g/dL 3.6-5. 1 normal Not Available [address], [address], 04/10/2023 09:15:46 04/09/2004/10/2023 COMPR EHENS MERE METAB OLIC PANEL globulin 2.5 g/dL_ (calc ) 1.9-3. 7 normal Not Available [address], [address], 04/10/2023 09:15:46 04/09/2004/10/2023 COMPR EHENS MERE METAB OLIC PANEL albumin/glob ulin ratio 1.7 (calc ) 1.0-2. 5 normal Not Available [address], [address], 04/10/2023 09:15:46 04/09/2004/10/2023 COMPR EHENS MERE METAB OLIC PANEL bilirubin, total 0.7 mg/dL 0.2-1. 2 normal Not Available [address], [address], 04/10/2023 09:15:46 04/09/2004/10/2023 COMPR EHENS MERE METAB OLIC PANEL alkaline phosphatase 96 U/L 31-125 normal Not Available [address], [address], 04/10/2023 09:15:46 04/09/2004/10/2023 COMPR EHENS MERE METAB OLIC PANEL AST 44 U/L 10-30 high Not Available [address], [address], 04/10/2023 09:15:46 04/09/20 23 04/10/2023 COMPR EHENS MERE METAB OLIC PANEL ALT 113 U/L 6-29 high Not Available [address] [place], [address], 04/10/2023 09:15:46 04/09/2004/10/2023 HEMOG LOBIN A1C hemoglobin [...] Curre ntly, no conse nsus exist s aliyah au use of hemog lobin A1c for [...] Care in Diabe shahla(A DA). Not Available [facility] [address], [address], 04/10/2023 09:15:47 04/09/2004/10/2023 T3, FREE T3, free 3.0 pg/mL 2.3-4. 2 normal Not Available [facility] [address] [address] [place], [address], 04/10/2023 09:15:48 04/09/2004/10/2023 CBC (INCL UDES DIFF/ PLT) white blood cell count 5.9 thous and/u L 3.8-10 .8 normal Not Available [facility] [address] [address] [place], [address], 04/10/2023 09:15:49 04/09/2004/10/2023 CBC (INCL UDES DIFF/ PLT) red blood cell count 4.40 shade on/uL 3.80-5 .10 normal Not Available [address], [address], 04/10/2023 09:15:49 04/09/2004/10/2023 CBC (INCL UDES DIFF/ PLT) hemoglobin 13.3 g/dL 11.7-1 5.5 normal Not Available [address], [address], 04/10/2023 09:15:49 04/09/2004/10/2023 CBC (INCL UDES DIFF/ PLT) hematocrit 38.7 % 35.0-4 5.0 normal Not Available [address], [address], 04/10/2023 09:15:49 04/09/2004/10/2023 CBC (INCL UDES DIFF/ PLT) MCV 88.0 fL 80.0-1 00.0 normal Not Available [address], [address], 04/10/2023 09:15:49 04/09/2004/10/2023 CBC (INCL UDES DIFF/ PLT) MCH 30.2 pg 27.0-3 3.0 normal Not Available [address], [address], 04/10/2023 09:15:49 04/09/2004/10/2023 CBC (INCL UDES DIFF/ PLT) MCHC 34.4 g/dL 32.0-3 6.0 normal Not Available [address], [address], 04/10/2023 09:15:49 04/09/2004/10/2023 CBC (INCL UDES DIFF/ PLT) RDW 12.8 % 11.0-1 5.0 normal Not Available [address], [address], 04/10/2023 09:15:49 04/09/2004/10/2023 CBC (INCL UDES DIFF/ PLT) platelet count 162 thous and/u L 140-40 0 normal Not Available [address], [address], 04/10/2023 09:15:49 04/09/2004/10/2023 CBC (INCL UDES DIFF/ PLT) MPV 12.3 fL 7.5-12 .5 normal Not Available [address], [address], 04/10/2023 09:15:49 04/09/2004/10/2023 CBC (INCL UDES DIFF/ PLT) absolute neutrophils 3729 cells /uL 1500-7 800 normal Not Available [address], [address], 04/10/2023 09:15:49 04/09/2004/10/2023 CBC (INCL UDES DIFF/ PLT) absolute lymphocytes 1682 cells /uL 850-39 00 normal Not Available [address], [address], 04/10/2023 09:15:49 04/09/2004/10/2023 CBC (INCL UDES DIFF/ PLT) absolute monocytes 319 cells /uL 200-95 0 normal Not Available [address], [address], 04/10/2023 09:15:49 04/09/2004/10/2023 CBC (INCL UDES DIFF/ PLT) absolute eosinophils 130 cells /uL 15-500 normal Not Available [address], [address], 04/10/2023 09:15:49 04/09/2004/10/2023 CBC (INCL UDES DIFF/ PLT) absolute basophils 41 cells /uL 0-200 normal Not Available [address], [address], 04/10/2023 09:15:49 04/09/2004/10/2023 CBC (INCL UDES DIFF/ PLT) neutrophils 63.2 % normal Not Available [address], [address], 04/10/2023 09:15:49 04/09/2004/10/2023 CBC (INCL UDES DIFF/ PLT) lymphocytes 28.5 % normal Not Available [address], [address], 04/10/2023 09:15:49 04/09/2004/10/2023 CBC (INCL UDES DIFF/ PLT) monocytes 5.4 % normal Not Available [address], [address], 04/10/2023 09:15:49 04/09/2004/10/2023 CBC (INCL UDES DIFF/ PLT) eosinophils 2.2 % normal Not Available [address], [address], 04/10/2023 09:15:49 04/09/2004/10/2023 CBC (INCL UDES DIFF/ PLT) basophils 0.7 % normal Not Available [address], [address], 04/10/2023 09:15:49 04/09/2004/10/2023 VITAM IN B12/F OLATE , SERUM PANEL vitamin B12 817 pg/mL 200-11 00 normal Not Available [address], [address], 04/10/2023 09:15:50 04/09/2004/10/2023 VITAM IN B12/F OLATE , SERUM PANEL folate, serum 22.4 NG/mL normal Refer ence Range Low: <3.4 Borde rline : 3.4-5 .4 Richelle l: >5.4 Not Available [address], [address], 04/10/2023 09:15:50 07/08/1907/09/2023 HEPAT IC FUNCT ION PANEL protein, total 7.0 g/dL 6.1-8. 1 normal Not Available [address], [address], 07/09/2023 02:19:54 07/08/1907/09/2023 HEPAT IC FUNCT ION PANEL albumin 4.5 g/dL 3.6-5. 1 normal Not Available [address], [address], 07/09/2023 02:19:54 07/08/19 24 07/09/2023 HEPAT IC FUNCT ION PANEL globulin 2.5 g/dL_ (calc ) 1.9-3. 7 normal Not Available [address], [address], 07/09/2023 02:19:54 07/08/19 24 07/09/2023 HEPAT IC FUNCT ION PANEL albumin/glob ulin ratio 1.8 (calc ) 1.0-2. 5 normal Not Available [address], [address], 07/09/2023 02:19:54 07/08/1907/09/2023 HEPAT IC FUNCT ION PANEL bilirubin, total 0.6 mg/dL 0.2-1. 2 normal Not Available [address], [address], 07/09/2023 02:19:54 07/08/19 24 07/09/2023 HEPAT IC FUNCT ION PANEL bilirubin, direct 0.1 mg/dL < or = 0.2 normal Not Available [address], [address], 07/09/2023 02:19:54 07/08/19 24 07/09/2023 HEPAT IC FUNCT ION PANEL bilirubin, indirect 0.5 mg/dL _(shawna c) 0.2-1. 2 normal Not Available [address], [address], 07/09/2023 02:19:54 07/08/19 24 07/09/2023 HEPAT IC FUNCT ION PANEL alkaline phosphatase 90 U/L 31-125 normal Not Available [facility] [employer] [address], [address], 07/09/2023 02:19:54 07/08/19 24 07/09/2023 HEPAT IC FUNCT ION PANEL AST 23 U/L 10-30 normal Not Available [address], [address], 07/09/2023 02:19:54 07/08/19 24 07/09/2023 HEPAT IC FUNCT ION PANEL ALT 30 U/L 6-29 high Not Available [address], [address], 07/09/2023 02:19:54 07/08/19 24 07/09/2023 GGT GGT 20 U/L 3-50 normal Not Available [address], [address], 07/09/2023 02:20:01 04/13/20 21 04/11/2021 US, thyro id No observ ation record ed. [id number] [facility] [address], [place], [address], 08/29/2022 20:04:29 05/14/20 22 05/14/2022 diagn ostic colon oscop y (PROC ) No observ ation record ed. [id number] [facility] (Medical Records) [address], [place], [address], 08/29/2022 20:04:29 Result Notes None recorded. Problems Name Problem SNOMED Code Status Onset Date Resolution Date Notes Provider Name and Address Organization Details Recorded Time Loss of hair 330847367 Active 2021 Not Available [facility] 3 20:02:43 Low back pain 779997145 Active 2021 Not Available [facility] 3 20:02:43 Sleep disorder 52885477 Active 2021 Not Available [facility] 3 20:02:43 Hematochezia 213467104 Active 2021 Not Available [facility] 3 20:02:43 Hypothyroidis m 17897553 Active 2018 Not Available [facility] 3 20:02:43 Microcytic hypochromic anemia 17591573 Active 2021 Not Available [facility] 3 20:02:43 Allergic rhinitis 73845859 Active 2018 Not Available [facility] 3 20:02:43 Mild major depression 57423241 Active 2021 Not Available [facility] 3 20:02:43 Iron deficiency anemia 49936974 Active 2022 Not Available [facility] 3 20:02:44 Liver enzymes level above reference range 506278681 Active 2023 ANTON Joseph [address] [facility], [facility] [address], [place], [address] , [facility] 4 15:50:23 Problem Notes None recorded. 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 ADJUSTER Surgery completed Not Available [facility] 08/30/19 20:01:14 01/25/20 Date of Last Pap Smear completed Not Available [facility] 08/29/2022 20:01:13 Tonsillectomy completed Not Available [facility] 08/29/2022 20:01:14 Colonoscopy completed Not Available [facility] 08/29/2022 20:01:14 Imaging Results None [...] Respiratory rate Body temperature Body weight Systolic And Diastolic Provider Name and Address Organization Details Last Updated DateTime 2 32.4 kg/m2 167.01 cm 98 % 98 % 94 /min 16 /min 98.1 [degF] 64272.8 8 g 118/78 mm[Hg] Not Available [facility] 3 20:02:26 Date Recorded Body mass index (BMI) Body height Oxygen saturation Oxygen saturation in Arterial blood by Pulse oximetry Heart rate Body temperature Body weight Systolic And Diastolic Provider Name and Address Organization Details Last Updated DateTime 1 32.9 kg/m2 167.01 cm 99 % 99 % 98 /min 97.3 [degF] 23513.3 8 g 120/80 mm[Hg] Not Available [facility] 3 20:02:26 Date Recorded Body mass index (BMI) Body height Oxygen saturation Oxygen saturation in Arterial blood by Pulse oximetry Heart rate Respiratory rate Body temperature Body weight Systolic And Diastolic Provider Name and Address Organization Details Last Updated DateTime 2 32.1 kg/m2 167.01 cm 98 % 98 % 86 /min 16 /min 97.5 [degF] 03800.1 3 g 122/80 mm[Hg] Not Available [facility] 3 20:02:27 Date Recorded Body height Provider Name an d Address Organization Details Last Updated DateTime 03/22/2023 167.01 cm CLARISA Ramirez [place] [employer] 03/22/2023 11:02:57 Date Recorded Body height Body temperature Body mass index (BMI) Body weight Heart rate Oxygen saturation Oxygen saturation in Arterial blood by Pulse oximetry Systolic And Diastolic Provider Name and Address Organization Details Last Updated DateTime 3 167.01 cm 97.2 [degF] 30.6 kg/m2 21441.3 7 g 84 /min 99 % 99 % 118/80 mm[Hg] Shyanne Calderon RN [facility] [employer] 3 11:23:22 Social History Question Answer Notes LastModified by Organizat ion Details LastModified Time Tobacco Smoking Status Never Smoker Irma Leija CLARISA null, [place] [employer] [facility] [employer] 03/22/2023 11:02:35 Do You Have An Advance Directive? No [id number] Information not available 08/29/2022 What Is Your Level Of Caffeine Consumption? Moderate [id number] Information not available 08/29/2022 In The 14 Days Before Symptom Onset, Have You Had Close Contact With A Laboratory-confirm ed COVID-19 While That Case Was Ill? No [email or web address] Information n ot available 03/22/2023 In The 14 Days Before Symptom Onset, Have You Had Close Contact With A Person Who Is Under Investigation For COVID-19 While That Person Was Ill? No Information not available 03/22/2023 What Type Of Diet Are You Following? REGULAR [id number] Information not available 08/29/2022 Have There Been Any Changes To Your Family Or Social Situation? No [email or web address] Information no t available 03/22/2023 Are There Any Guns Present In Your Home? Yes [email or web address] Information not available 03/22/2023 Do You Use Insect Repellent Routinely? No Information not available 03/22/2023 Do You Have A Medical Power Of Road Boss? No [email or web address] Information not available 03/22/2023 What Is Your Relationship Status? [id number] Information not available 08/29/2022 Do You Use Your Seat Belt Or Car Seat Routinely? Yes [email or web address] Information not available 03/22/2023 Do You Have Smoke And Carbon Monoxide Detectors In Your Home? Yes [email or web address] Information not available 03/22/2023 Do You Use Sunscreen Routinely? Yes [email or web address] Information not available 03/22/2023 Have You Recently Traveled Abroad? No [email or web address] Information not available 03/22/2023 Do You Have Any Dietary Restrictions? No [email or web address] Information not available 03/22/2023 Sex: Unknown Functional Status Question Answer Note LastModified by [employer] ion Details LastModified Time Do you use any illicit or recreational drugs? No [email or web address] Information not available 03/22/2023 Do you or have you ever used any other forms of tobacco or nicotine? No [email or web address] Information not available 03/22/2023 What is your level of alcohol consumption? Occasional [id number] Information not available 08/29/2022 What is your exercise level? Occasional [id number] Information not available 08/29/2022 Mental Status None recorded. Family History Relationship Description Onset Age of this Age Resolved Age Notes LastModified by Organization Details LastModified Time Father Myocardial infarction [id number] Not available 08/29/2022 20:01:16 Maternal Grandmother Malignant neoplasm of skin [email or web address] Not available 03/22 11:02:34 Medical History Condition [...] SNOMED-CT Code Diagnosis ICD10 Code Diagnosis Note [id number] [facility] [place] ic_Gateway _ATHENA_M IGRATION_ DEFAULT_1 _1 , 01/30/2021 00:00:00 01/30/2021 12:21:36 [id number] ANTON Joseph [facility] [address] [place] [address] 03/13/2021 00:00:00 03/30/2021 00:20:29 [id number] Sukhi Browne MD [facility] [address] [place] [address] 02/21/2022 00:00:00 02/25/2022 09:00:13 [id number] ANTON Joseph [facility] [address] [place] [address] 03/21/2022 00:00:00 03/26/2022 09:53:28 [id number] ANTON Joseph [facility] [address] [place] [address] 03/22/2023 11:02:21 03/22/2023 11:12:22 [id number] ANTON Joseph [facility] [address] [place] [address] 04/08/2023 11:17:41 04/08/2023 11:50:26 Adult health examination 833603107 Z00.01 annual wellness completed. All labs are due, fasting. Hypothyroidism 76006984 E03.9 on thyroid supplement . due for TFT panel to monitor dosing. Mild major depression 87 007528 F32.0 stable on bupropion XL 150mg daily. Discussed w/pt that she will need to come OFF medication prior to trying to conceive child. Iron defic iency anemia 19877592 D50.9 due for iron studies. colonoscop y completed and stable. Loss of hair 039425104 L 65.9 screening b12 and folate labs due Long-term drug therapy 055178705 Z79.899 routine cmp due Diabetes m ellitus screening 222739919 Z13.1 screening a1c due Cholesterol screening 27 3744321 Z13.220 fasting lipids due Health Concerns Section Related Observation LastModified by Organization Detai ls LastModified Time None Recorded Concern Status LastModified by Organization Details LastModified Time None Recorded Advance Directives Directive N: Payers Insurance Date Sequence Insurance Name Policy Number Policy Howard Covered Member ID Howard Member ID Guarantor Name 04/03/2023 1 [place] [id number] Zohra Saira [id number] Zohra Chávez 05/01/2023 1 [facility] [id number] Zohra Maryder [id number] Zohra Chávez Notes Date Note Type Note [...] 8 times during the night Not Available [employer] 03/30/2021 00:20:29 02/22/20 22 text/ht ml Back [...] Associated Symptoms:weight gain ( lbs);depression Not Available [employer] 02/25/2022 09:00:13 03/21/20 22 text/ht ml Back [...] straining; no diarrhea; no cramping Not Available [facility] 03/26/2022 09:53:28 03/22/20 23 text/ht ml Anxiety/DepressionReported [...] changes; no hair changes Wellness ANTON Joseph [address] [place] [address], [address] [address], [place], [address], [place] [facility] [employer] 03/28/2023 22:34:51 04/08/20 23 text/ht ml Anxiety/DepressionReported [...] no hair changes wellness ANTON Joseph [address] [facility], [facility] [address], [place], [address], [facility] 04/30/2023 21:38:53 OBGyn Episode No OBEpisode recorded.
--- OUTSIDE RECORDS SUMMARY | 2025-01-08 10:28 | XMS_ITS | Data Portability ---
Author Organization [facility] Address [address] [place] [address] Assessment No assessment recorded. Plan of Treatment Reminders Order Date Submit Date Provider Last Modified By Organization Details Last Modified Time Details Appointments ANY 15 2024 10:45A ANTON Hunt Not available Not available Not available Lab lipid panel, serum 2023 024 [facility], [address], [place], [address], 02/18/2024 12:05:56 CMP, serum or plasma 2023 024 [facility], [address], [place], [address], 02/18/2024 12:05:57 CBC w/ auto diff 2023 024 [facility], [address], [place], [address], 02/18/2024 12:05:57 HbA1c (hemoglo bin A1c), blood 2023 024 [facility], [address], [place], [address], 02/18/2024 12:05:57 TSH + free T4, serum 2023 024 [facility], [address], [place], [address], 02/18/2024 12:05:56 T3, free, serum or plasma 2023 024 [facility], [address], [place], [address], 02/18/2024 12:05:57 insulin, serum 2023 024 [facility], [address], [place], [address], 02/18/2024 12:05:57 Referral None recorded . Procedures None recorded . Surgeries None recorded . Imaging None recorded . Medication Orders None recorded . Patient TargetsNo targets recorded. Patient Instructions Encounter Date Encounter Id Patient Instructions Last Modified By Organization Details Last Modified Time 02/10/2024 [id number] A healthy lifestyle: care instructions [email or web address] Not available 02/29/2024 17:44:16 Reason for Referral None Reported. Results Created Date Observation Date Name Description Value Unit Range Abnormal Flag Note LastModifiedBy Organization Detail LastModifiedTime Result Notes None recorded. Problems Name Problem SNOMED Code Status Onset Date Resolution Date Notes Provider Name and Address Organization Details Recorded Time Hypothyroidism 75987476 Active 2023 Irma Leija [facility], [place] - [facility] 4 15:54:10 Body mass index 30+ - obesity 614091479 Active 2023 ANTON Joseph Attn: Jm prieto,[address] [facility], [place], [address], [place] - [facility] 4 17:43:38 Long-term drug therapy Active 2023 ANTON Joseph Attn: Onesimoin g,[address] [facility], [place], [address], [place] - [facility] 4 17:44:04 Obesity 194466424 Active 2023 ANTON Joseph Attn: Jm prieto,[address] [facility], [place], [address], [place] - [facility] 4 17:44:14 Problem Notes None recorded. Procedures Surgical History Date Name Laterality Status Provider Name and Address Organization Details Recorded Time 1 [facility] 16:10:11 9 dilation and curettage completed Irma Leija [facility] 02/10/2024 16:09:36 Imaging Results None recorded. Procedure [...] Available Not Available Vitals Date Recorded Systolic And Diastolic Provider Name and Address Organization Details Last Updated DateTime 02/10/2024 120/80 mm[Hg] ANTON Joseph Attn: Accounting[address] [place], [address], [place] - [facility] 02/10/2024 12:37:02 Date Recorded Body weight Body mass index (BMI) Body height Respiratory rate Oxygen saturation Oxygen saturation in Arterial blood by Pulse oximetry Heart rate Systolic And Diastolic Provider Name and Address Organization Details Last Updated DateTime 4 [address].0 7 g 33.4 kg/m2 165.1 cm 16 /min 98 % 98 % 104 /min 128/82 mm[Hg] Irma Leija [facility] 4 11:55:35 Social History Question Answer Notes LastModified by Organizat ion Details LastModified Time Tobacco Smoking Status Never Smoker Irma Leija [facility], [place] - [facility] 02/10/2024 11:57:24 Do You Have An Advance Directive? No [email or web address] Information not available 02/10/2024 Are You Blind Or Do You Have Difficulty Seeing? Yes Has Glasses [email or web address] Information not available 02/10/2024 What Is Your Level Of Caffeine Consumption? Moderate Information not available 02/10/2024 In The 14 Days Before Symptom Onset, Have You Had Close Contact With A Laboratory-confir med COVID-19 While That Case Was Ill? No [email or web address] Information not available 02/10/2024 In The 14 Days Before Symptom Onset, Have You Had Close Contact With A Person Who Is Under Investigation For COVID-19 While That Person Was Ill? No [email or web address] Information not available 02/10/2024 Have You Been To An Area Known To Be High Risk For COVID-19? No [email or web address] Information not available 02/10/2024 Are You Deaf Or Do You Have Serious Difficulty Hearing? No [email or web address] Information not available 02/10/2024 What Type Of Diet Are You Following? REGULAR Information not available 02/10/2024 Are There Any Guns Present In Your Home? Yes [email or web address] Information not available 02/10/2024 What Was The Date Of Your Most Recent Tobacco Screening? 02/10/2024 [email or web address] Information not available 02/10/2024 What Is Your Relationship Status? [email or web address] Information not available 02/10/2024 Do You Use Your Seat Belt Or Car Seat Routinely? Yes [email or web address] Information not available 02/10/2024 Do You Have Smoke And Carbon Monoxide Detectors In Your Home? Yes [email or web address] Information not available 02/10/2024 Do You Use Sunscreen Routinely? Yes [email or web address] Information not available 02/10/2024 Has Tobacco Cessation Counseling Been Provided? Yes [email or web address] Information not available 02/10/2024 On What Date Was Tobacco Cessation Counseling Provided? 02/10/2024 [email or web address] Information not available 02/10/2024 Sex: Unknown Functional Status Question Answer Note LastModified by Organizat ion Details LastModified Time Do you use any illicit or recreational drugs? No [email or web address] Information not available 02/10/2024 Do you or have you ever used any other forms of tobacco or nicotine? No [email or web address] Information not available 02/10/2024 What is your level of alcohol consumption? Occasional [email or web address] Information not available 02/10/2024 Are you currently employed? Yes Information not available 02/10/2024 Are you able to care for yourself? Yes [email or web address] Information n ot available 02/10/2024 What is your exercise level? Occasional Information not available 02/10/2024 Mental Status None recorded. Family History Relationship Description Onset Age of this Age Resolved Age Notes LastModified by Organization Details LastModified Time Father Myocardial infarction [email or web address] Not available 01/29 11:57:02 Brother Diabetes mellitus [email or web address] Not available 02/09 16:09:56 Medical History Condition Response Thyroid Problems Y Gynecological HistoryNo gynecological history recorded. Obstetrics History GPAL:G 0 P 0 0 0 0 Past Encounters Encounter ID Performer Location Encounter Start Date Encounter Closed Date Diagnosis/Indication Diagnosis SNOMED-CT Code Diagnosis ICD10 Code Diagnosis Note [id number] Sukhi Browne MD [facility] [address] [facility] [address] [place] [address] 02/10/2024 11:44:34 02/10/2024 13:01:48 Body mass index 30+ - obesity 664576298 Z68.33 BMI is 33.4. Screening fasting insulin lab ordered Adult [facility] th examination 629936983 Z00.00 Annual wellness exam complete Cholesterol screening 27 1835826 Z13.220 Annual fasting lipid panel ordered Diabetes m ellitus screening 450702060 Z13.1 Diabetes screening ordered Hypothyroidism 69005182 E03.9 Continue Synthroid 112 mcg daily and due for updated thyroid function lab panel Long-term drug therapy 504904646 Z79.899 Routine CBC and CMP due Obesity 792878956 E66.8 Patient is actively losing weight and has improve diet and exercise. Health Concerns Section Related Observation LastModified by Organization Detai ls LastModified Time None Recorded Concern Status LastModified by Organization Details LastModified Time None Recorded Advance Directives Directive N: Payers Insurance Date Sequence Insurance Name Policy Number Policy Howard Covered Member ID Howard Member ID Guarantor Name 03/03/2024 1 [place] [id number] Josh Chávez [id number] Zohra Saira Notes Date Note Type [...] mcg daily ANTON Joseph Attn: Accounting[address] [place], [address], [place] - [facility] 02/29/2024 17:44:32 OBGyn Episode No OBEpisode recorded.
[2025-01-08 11:59] LABS: Hematocrit 39.9 % (37.0-47.0); Hemoglobin 13.1 g/dL (12.0-15.0); Immature Granulocyte Percent A 0.5 % (0-0.5); Lymphocytes Absolute Auto 1.23 K/mm3 (0.9-3.2); Mean Corpuscular HGB Conc 32.8 g/dl (32-36); Mean Corpuscular Hemoglobin 31.0 pg (26-34); Mean Corpuscular Volume 94.3 fl (80-100); Nucleated Red Blood Cells Absolute Auto 0.000 K/mm3 (0.0-0.012); Nucleated Red Blood Cells Perc 0.0 % (0.0-0.2); Platelet Count Result 164 k/mm3 (150-375); Red Blood Count 4.23 M/mm3 (4.2-5.4); White Blood Count 8.3 K/mm3 (4.5-10.0)
[2025-01-08 12:40] LABS: Glucose 1 Hour PP 50gm Dose 143 mg/dL
[2025-01-08 13:06] LABS: HIV 1/2 Ab P24 Ag Result Negative (Negative)
[2025-01-08 13:18] LABS: Syphilis IgG/IgM Antibody Non-Reactive (Nonreactive)
[2025-01-08 13:21] LABS: Hepatitis B Surface Antigen Negative (Negative)
[2025-01-08 14:26] LABS: Beta HCG Quantitative 256180.00 mIU/ML
[2025-01-09 07:09] LABS: Cytomegalovirus (CMV) Ab, IgG <0.60 U/mL (0.00-0.59); Cytomegalovirus (CMV) Ab, IgM <30.0 AU/mL (0.0-29.9)
[2025-01-11 13:08] LABS: Parvovirus B19, IgG 6.1 index (0.0-0.8); Parvovirus B19, IgM 0.1 index (0.0-0.8)
[2025-01-11 15:08] LABS: Varicella-Zoster Ab, IgG Reactive (Non Reactive); Varicella-Zoster Ab, IgM <0.91 index (0.00-0.90)
== END 2025-01-08 10:24 | disposition home or self-care (01) ==
LOC: ANHLAB 10:25
PROVIDERS: Visit Provider Obstetrics & Gynecology
DX: N91.2 Amenorrhea, unspecified (principal); E66.01 Morbid (severe) obesity due to excess calories
CPT/HCPCS: 36415; 82947; 84702; 85025; 86593; 86644; 86645; 86703; 86747; 86762; 86787; 86850; 86900; 86901; 87086; 87340; G0432

== ENCOUNTER 2025-01-11 13:20 | Outpatient (CLI) | payer OTHER, SELFPAY ==
--- NOTE | ~2025-01-11 | US_ITS ---
Pelvic ultrasound. Clinical History: First trimester , still states and viability Technique: Realtime transabdominal and transvaginal scanning of the pelvis was performed. Color flow Doppler and Doppler spectral analysis were performed. Findings: The uterus is anteverted, and contains an intrauterine gestation. With crown-rump length of 2.1 cm corresponds to an estimated gestational age of 8 weeks 5 days. heart rate is 161 bpm. Neither ovary seen. No adnexal mass seen. There is no evidence of free fluid in the cul de sac. Impression: Live intrauterine gestation, with estimated gestational age of 8 weeks 5 days. heart rate is 16 1 bpm. Sonographic AARON is 08/17/2025. Reviewed, dictated and finalized at location . Impression: Live intrauterine gestation, with estimated gestational age of 8 weeks 5 days. heart rate is 161 bpm. Sonographic AARON is 08/17/2025.
== END 2025-01-11 13:21 | disposition home or self-care (01) ==
LOC: MICIMG 13:21
PROVIDERS: PCP Obstetrics & Gynecology; Visit Provider Obstetrics & Gynecology
DX: Z34.90 Encounter for supervision of normal pregnancy, unspecified, unspecified trimester (principal)
CPT/HCPCS: 76801

== ENCOUNTER 2025-01-25 08:08 | Outpatient (CLI) | payer OTHER, SELFPAY ==
--- OUTSIDE RECORDS SUMMARY | 2025-01-25 08:16 | XMS_ITS | Referral Summary ---
Author Organization [facility] Address [address] [place] [address] Care Team Providers Care Coding Analyst Name Role Phone Unknown, Notinfile Primary Care [...] 05/30/2021 Assessment & Plan (06/18/2022 7:08 PM BRAKE PRESS OPERATOR): FNA x 2 benign Stable in size Discussed manager long term care follow up of benign and stable thyroid [...] intervention Assessment & Plan (05/30/2021 3:42 PM BRAKE PRESS OPERATOR): Will obtain outside images to review Plan FNA 06/13 if needed and after images are reviewed Primary hypothyroidism 05/30/2021 Assessment & Plan (05/30/2021 3:43 PM BRAKE PRESS OPERATOR): Normal TFT Continue Synthroid dose Hair loss unlikely explained by hypothyroidism given normal function Social History Tobacco Use Types Packs/Day Years Used Date Smoking Tobacco: Never Tobacco Cessation:Counseling Given: Not Answered Comments Unknown Sex and Gender Information Value Date Recorded Sex Assigned at Not on file Legal Sex Female 3:08 PM CDT Gender Identity Female 05/27/2021 3:04 PM BRAKE PRESS OPERATOR Sexual Orientation Straight 05/27/2021 3: 04 PM BRAKE PRESS OPERATOR Last Filed Vital Signs Vital Sign Reading Time Taken Comments Blood Pressure 112/79 06/18/2022 2:42 PM BRAKE PRESS OPERATOR Pulse 94 06/18/2022 2:42 PM BRAKE PRESS OPERATOR Temperature 36.7 C (98 F) 06/18/2022 2:42 PM BRAKE PRESS OPERATOR Respiratory Rate - - Oxygen Saturation - - Inhaled Oxygen Concentration - - Weight 88 kg (194 lb) 06/18/2022 2:42 PM BRAKE PRESS OPERATOR Height 165.1 cm (5' 5) 06/18/2022 2:42 PM BRAKE PRESS OPERATOR Body Mass Index 32.28 06/18/2022 2:42 PM BRAKE PRESS OPERATOR Plan of Treatment Not on file Insurance [facility] Care Teams Coding Analyst Relationship Specialty Start Date End Date Unknown, Notinfile PCP - General 06/13/22
--- OUTSIDE RECORDS SUMMARY | 2025-01-25 08:16 | XMS_ITS | Encounter Summary ---
Author Organization [facility] Address [address] [place] [address] Phone Care Team Providers Care Film Examiner Name Role Phone Unknown, Notinfile Primary Care [...] CDT Gender Identity Female 05/27/2021 3:04 PM ZOO KEEPER Sexual Orientation Straight 05/27/2021 3: 04 PM ZOO KEEPER documented as of this encounter Plan of Treatment Not on file documented as of this encounter Procedures Procedure Name Priority Date/Time Associated Diagnosis Comments SCAN - LABS 09/26/2018 documented in this encounter Results * SCAN - LABS (09/26/2018) us Provider Scanning Final Result documented in this encounter Visit Diagnoses Not on filedocumented in this encounter Care Teams Film Examiner Relationship Specialty Start Date End Date Unknown, Lisa PCP - General 06/13/22 documented as of this encounter
--- OUTSIDE RECORDS SUMMARY | 2025-01-25 08:16 | XMS_ITS | Clinical Summary ---
Author Organization [facility] Address [address] [place] [address] Care Team Providers Care Director Of Hotel Operations Name Role Phone Unknown, Notinfile Primary Care [...] 05/30/2021 Assessment & Plan (06/18/2022 7:08 PM BIOLOGY SPECIALIST): FNA x 2 benign Stable in size Discussed [place] follow up of benign and stable thyroid [...] intervention Assessment & Plan (05/30/2021 3:42 PM BIOLOGY SPECIALIST): Will obtain outside images to review Plan FNA 06/13 if needed and after images are reviewed Primary hypothyroidism 05/30/2021 Assessment & Plan (05/30/2021 3:43 PM BIOLOGY SPECIALIST): Normal TFT Continue Synthroid dose Hair loss [...] CDT Gender Identity Female 05/27/2021 3:04 PM BIOLOGY SPECIALIST Sexual Orientation Straight 05/27/2021 3: 04 PM BIOLOGY SPECIALIST Obstetrics History Last Filed Vital Signs Vital Sign Reading Time Taken Comments Blood Pressure 112/79 06/18/2022 2:42 PM BIOLOGY SPECIALIST Pulse 94 06/18/2022 2:42 PM BIOLOGY SPECIALIST Temperature 36.7 C (98 F) 06/18/2022 2:42 PM BIOLOGY SPECIALIST Respiratory Rate - - Oxygen Saturation - - Inhaled Oxygen Concentration - - Weight 88 kg (194 lb) 06/18/2022 2:42 PM BIOLOGY SPECIALIST Height 165.1 cm (5' 5) 06/18/2022 2:42 PM BIOLOGY SPECIALIST Body Mass Index 32.28 06/18/2022 2:42 PM BIOLOGY SPECIALIST Plan of Treatment Health Maintenance Due Date Last Done Comments Cervical Cancer Screening 1992 Depression Screening 1992 Hepatitis C Screening 1992 Varicella Vaccines (1 of 2 - 13+ 2-dose series) 2005 Regular Well Visit/Exam 18-64 2010 DTaP/Tdap/Td Vaccine (7 - Td or Tdap) 11/11/2016 11/11/2006, 02/08/1997, 10/19/1993, Additional history exists HPV Vaccines (1 - 3-dose SCDM series) 2019 Covid-19 Vaccine ( season) 2024 10/24/2020, 09/26/2020 Influenza Vaccine (#1) 2025 , 05/23/2019, 04/13/2016 Hepatitis B Screening Completed 03/08/2003 , 12/31/2002, 02/11/1997 Pneumococcal vaccine <65 Aged Out No longer eligible based on patient's age to complete this topic [place] [employer] [place] [employer] [place] Care Teams Director Of Hotel Operations Relationship Specialty Start Date End Date Unknown, Notinfile PCP - General 06/13/22
--- OUTSIDE RECORDS SUMMARY | 2025-01-25 08:16 | XMS_ITS | Data Portability ---
Author Organization [place] - [facility] [employer], Main Office Address [address] [place] [address] Assessment No assessment recorded. Plan of Treatment Reminders Order Date Submit Date Provider Last Modified By Organization Details Last Modified Time Details Appointments None recorded. Lab CMP, serum or plasma ROBBYYakaz [facility], [address], [place], [address], 3 09:15:46 lipid panel, serum ROBBYYakaz [facility], [address], [place], [address], 3 09:15:45 vitamin B12 + folate, serum or blood 023 ROBBYYakaz [facility], [address], [place], [address], 3 09:15:50 HbA1c (hemoglob in A1c), blood 023 [employer] [facility], [address], [place], [address], 3 09:15:48 TSH + free T4, serum 023 [employer] [facility], [address], [place], [address], 3 09:15:45 T3, free, serum or plasma 023 023 ROBBYPriceSpot [facility], [address], [place], [address], 3 09:15:48 iron + TIBC + ferritin, serum 023 ROBBY [employer] [facility], [address], [place], [address], 3 09:15:43 CBC w/ auto diff ROBBY [employer] [facility], [address], [place], [address], 3 09:15:49 Referral None recorded. Procedures None [...] pg/mL will have sympt oms. Not Available [employer] [facility] [address] [place], [address], 03/14/2021 13:23:04 03/13/2003/14/2021 VITAM IN B12/F OLATE , SERUM PANEL folate, serum 17.9 NG/mL normal Refer ence Range Low: <3.4 Borde rline : 3.4-5 .4 Richelle l: >5.4 Not Available [address], [address], 03/14/2021 13:23:04 03/13/2003/14/2021 CBC (INCL UDES DIFF/ PLT) white blood cell count 6.4 thous and/u L 3.8-10 .8 normal Not Available [address], [address], 03/14/2021 13:23:03 03/13/2003/14/2021 CBC (INCL UDES DIFF/ PLT) red blood cell count 4.67 shade on/uL 3.80-5 .10 normal Not Available [address], [address], 03/14/2021 13:23:03 03/13/2003/14/2021 CBC (INCL UDES DIFF/ PLT) hemoglobin 14.6 g/dL 11.7-1 5.5 normal Not Available [address], [address], 03/14/2021 13:23:03 03/13/2003/14/2021 CBC (INCL UDES DIFF/ PLT) hematocrit 43.9 % 35.0-4 5.0 normal Not Available [address], [address], 03/14/2021 13:23:03 03/13/2003/14/2021 CBC (INCL UDES DIFF/ PLT) MCV 94.0 fL 80.0-1 00.0 normal Not Available [address], [address], 03/14/2021 13:23:03 03/13/2003/14/2021 CBC (INCL UDES DIFF/ PLT) MCH 31.3 pg 27.0-3 3.0 normal Not Available [address], [address], 03/14/2021 13:23:03 03/13/20 21 03/14/2021 CBC (INCL UDES DIFF/ PLT) MCHC 33.3 g/dL 32.0-3 6.0 normal Not Available [address], [address], 03/14/2021 13:23:03 03/13/2003/14/2021 CBC (INCL UDES DIFF/ PLT) RDW 12.7 % 11.0-1 5.0 normal Not Available [address], [address], 03/14/2021 13:23:03 03/13/2003/14/2021 CBC (INCL UDES DIFF/ PLT) platelet count 177 thous and/u L 140-40 0 normal Not Available [address], [address], 03/14/2021 13:23:03 03/13/2003/14/2021 CBC (INCL UDES DIFF/ PLT) MPV 11.8 fL 7.5-12 .5 normal Not Available [address], [address], 03/14/2021 13:23:03 03/13/2003/14/2021 CBC (INCL UDES DIFF/ PLT) absolute neutrophils 4122 cells /uL 1500-7 800 normal Not Available [address], [address], 03/14/2021 13:23:03 03/13/2003/14/2021 CBC (INCL UDES DIFF/ PLT) absolute lymphocytes 1760 cells /uL 850-39 00 normal Not Available [address], [address], 03/14/2021 13:23:03 03/13/2003/14/2021 CBC (INCL UDES DIFF/ PLT) absolute monocytes 339 cells /uL 200-95 0 normal Not Available [address], [address], 03/14/2021 13:23:03 03/13/20 21 03/14/2021 CBC (INCL UDES DIFF/ PLT) absolute eosinophils 147 cells /uL 15-500 normal Not Available [address], [address], 03/14/2021 13:23:03 03/13/20 21 03/14/2021 CBC (INCL UDES DIFF/ PLT) absolute basophils 32 cells /uL 0-200 normal Not Available [address], [address], 03/14/2021 13:23:03 03/13/20 21 03/14/2021 CBC (INCL UDES DIFF/ PLT) neutrophils 64.4 % normal Not Available [address], [address], 03/14/2021 13:23:03 03/13/20 21 03/14/2021 CBC (INCL UDES DIFF/ PLT) lymphocytes 27.5 % normal Not Available [address], [address], 03/14/2021 13:23:03 03/13/20 21 03/14/2021 CBC (INCL UDES DIFF/ PLT) monocytes 5.3 % normal Not Available [address], [address], 03/14/2021 13:23:03 03/13/20 21 03/14/2021 CBC (INCL UDES DIFF/ PLT) eosinophils 2.3 % normal Not Available [address], [address], 03/14/2021 13:23:03 03/13/20 21 03/14/2021 CBC (INCL UDES DIFF/ PLT) basophils 0.5 % normal Not Available [facility] [address] [address] [address], [place], [address], 03/14/2021 13:23:03 03/13/20 21 03/14/2021 T3, FREE T3, free 3.3 pg/mL 2.3-4. 2 normal Not Available [address], [address], 03/14/2021 13:23:02 03/13/20 21 03/14/2021 COMPR EHENS MERE METAB OLIC PANEL glucose 97 mg/dL 65-99 normal Fasti ng refer ence inter lizbet Not Available [address], [address], 03/14/2021 13:23:01 03/13/20 21 03/14/2021 COMPR EHENS MERE METAB OLIC PANEL urea nitrogen (BUN) 12 mg/dL 7-25 normal Not Available [address], [address], 03/14/2021 13:23:01 03/13/20 21 03/14/2021 COMPR EHENS MERE METAB OLIC PANEL creatinine 0.79 mg/dL 0.50-1 .10 normal Not Available [address], [address], 03/14/2021 13:23:01 03/13/20 21 03/14/2021 COMPR EHENS MERE METAB OLIC PANEL eGFR non-afr. montenegrin 102 mL/mi n/1.7 3m2 > or = 60 normal Not Available [address], [address], 03/14/2021 13:23:01 03/13/20 21 03/14/2021 COMPR EHENS MERE METAB OLIC PANEL eGFR 118 mL/mi n/1.7 3m2 > or = 60 normal Not Available [address], [address], 03/14/2021 13:23:01 03/13/20 21 03/14/2021 COMPR EHENS MERE METAB OLIC PANEL BUN/creatini ne ratio not applic able (calc ) 6-22 Not Available [address], [address], 03/14/2021 13:23:01 03/13/20 21 03/14/2021 COMPR EHENS MERE METAB OLIC PANEL sodium 140 mmol/ L 135-14 6 normal Not Available [address], [address], 03/14/2021 13:23:01 03/13/20 21 03/14/2021 COMPR EHENS MERE METAB OLIC PANEL potassium 4.4 mmol/ L 3.5-5. 3 normal Not Available [address], [address], 03/14/2021 13:23:01 03/13/20 21 03/14/2021 COMPR EHENS MERE METAB OLIC PANEL chloride 107 mmol/ L 98-110 normal Not Available [address], [address], 03/14/2021 13:23:01 03/13/20 21 03/14/2021 COMPR EHENS MERE METAB OLIC PANEL carbon dioxide 24 mmol/ L 20-32 normal Not Available [address], [address], 03/14/2021 13:23:01 03/13/20 21 03/14/2021 COMPR EHENS MERE METAB OLIC PANEL calcium 9.5 mg/dL 8.6-10 .2 normal Not Available [address], [address], 03/14/2021 13:23:01 03/13/20 21 03/14/2021 COMPR EHENS MERE METAB OLIC PANEL protein, total 7.1 g/dL 6.1-8. 1 normal Not Available [address] [address] [place], [address], 03/14/2021 13:23:01 03/13/20 21 03/14/2021 COMPR EHENS MERE METAB OLIC PANEL albumin 4.3 g/dL 3.6-5. 1 normal Not Available [address], [address], 03/14/2021 13:23:01 03/13/20 21 03/14/2021 COMPR EHENS MERE METAB OLIC PANEL globulin 2.8 g/dL_ (calc ) 1.9-3. 7 normal Not Available [address], [address], 03/14/2021 13:23:01 03/13/20 21 03/14/2021 COMPR EHENS MERE METAB OLIC PANEL albumin/glob ulin ratio 1.5 (calc ) 1.0-2. 5 normal Not Available [address] [address] [place], [address], 03/14/2021 13:23:01 03/13/20 21 03/14/2021 COMPR EHENS MERE METAB OLIC PANEL bilirubin, total 0.6 mg/dL 0.2-1. 2 normal Not Available [address], [address], 03/14/2021 13:23:01 03/13/2003/14/2021 COMPR EHENS MERE METAB OLIC PANEL alkaline phosphatase 83 U/L 31-125 normal Not Available [address] [address] [place], [address], 03/14/2021 13:23:01 03/13/2003/14/2021 COMPR EHENS MERE METAB OLIC PANEL AST 15 U/L 10-30 normal Not Available [address], [address], 03/14/2021 13:23:01 03/13/20 21 03/14/2021 COMPR EHENS EMRE METAB OLIC PANEL ALT 14 U/L 6-29 normal Not Available [address], [address], 03/14/2021 13:23:01 03/13/20 21 03/14/2021 LIPID PANEL WITH RATIO S cholesterol, total 164 mg/dL <200 normal Not Available [address], [address], 03/14/2021 13:23:01 03/13/2003/14/2021 LIPID PANEL WITH RATIO S HDL cholesterol 48 mg/dL > or = 50 low Not Available [address], [address], 03/14/2021 13:23:01 03/13/20 21 03/14/2021 LIPID PANEL WITH RATIO S triglyceride s 102 mg/dL <150 normal Not Available [address], [address], 03/14/2021 13:23:01 03/13/2003/14/2021 LIPID PANEL WITH RATIO [...] the estim ation of LDL-C . Delma walkre SS et al. CARMENZA. 2013; 310(1 9): 2061- 2068 (http ://ed ucati on.Qu estDi susanos tics. com/f aq/FA Q164) Not Available [address] [place], [address], 03/14/2021 13:23:01 03/13/2003/14/2021 LIPID PANEL WITH RATIO S chol/HDLC ratio 3.4 (calc ) <5.0 normal Not Available [facility] [address], [address], 03/14/2021 13:23:01 03/13/2003/14/2021 LIPID PANEL WITH RATIO S LDL/HDL ratio 2.0 (calc ) Below avera ge Risk: <2.34 [facility] Risk: 2.35- 4.12 Moder ate Risk: 4.13- 5.56 High Risk: >5.57 Not Available [address], [address], 03/14/2021 13:23:01 03/13/2003/14/2021 LIPID PANEL WITH RATIO S non HDL cholesterol 116 mg/dL _(shawna c) <130 normal For patie nts with diabe shahla plus 1 major ASCVD risk facto r, treat ing to a non-H DL-C goal of <100 mg/dL (LDL- C of <70 mg/dL ) is michael iraheta c optio n. Not Available [address], [address], 03/14/2021 13:23:01 03/13/2003/14/2021 TSH+F REE T4 TSH 1.28 mIU/L normal Refer ence Range > or = 20 Years 0.40- 4.50 Pregn paloma Range s First trime ster 0.26- 2.66 Secon d trime ster 0.55- 2.73 Third trime ster 0.43- 2.91 Not Available [address] [address] [place], [address], 03/14/2021 13:22:59 03/13/2003/14/2021 TSH+F REE T4 T4, free 1.4 NG/dL 0.8-1. 8 normal Not Available [address], [address], 03/14/2021 13:22:59 03/13/2003/14/2021 IRON, TIBC AND SALINAS TIN PANEL iron, total 121 mcg/d L 40-190 normal Not Available [address], [address], 03/14/2021 13:22:57 03/13/20 21 03/14/2021 IRON, TIBC AND SALINAS TIN PANEL iron binding capacity 378 mcg/d L_(ca lc) 250-45 0 normal Not Available [address], [address], 03/14/2021 13:22:57 03/13/20 21 03/14/2021 IRON, TIBC AND SALINAS TIN PANEL % saturation 32 %_(ca lc) 16-45 normal Not Available [address], [address], 03/14/2021 13:22:57 03/13/2003/14/2021 IRON, TIBC AND SALINAS TIN PANEL ferritin 22 NG/mL 16-154 normal Not Available [address], [address], 03/14/2021 13:22:57 02/27/20 22 02/27/2022 CBC (INCL UDES DIFF/ PLT) white blood cell count 5.4 thous and/u L 3.8-10 .8 normal Not Available [address], [address], 02/27/2022 05:55:42 02/27/20 22 02/27/2022 CBC (INCL UDES DIFF/ PLT) red blood cell count 4.87 shade on/uL 3.80-5 .10 normal Not Available [address], [address], 02/27/2022 05:55:42 02/27/20 22 02/27/2022 CBC (INCL UDES DIFF/ PLT) hemoglobin 11.4 g/dL 11.7-1 5.5 low Not Available [address], [address], 02/27/2022 05:55:42 02/27/20 22 02/27/2022 CBC (INCL UDES DIFF/ PLT) hematocrit 36.7 % 35.0-4 5.0 normal Not Available [facility] [address], [address], 02/27/2022 05:55:42 02/27/20 22 02/27/2022 CBC (INCL UDES DIFF/ PLT) MCV 75.4 fL 80.0-1 00.0 low Not Available [address], [address], 02/27/2022 05:55:42 02/27/20 22 02/27/2022 CBC (INCL UDES DIFF/ PLT) MCH 23.4 pg 27.0-3 3.0 low Not Available [employer] [address], [address], 02/27/2022 05:55:42 02/27/20 22 02/27/2022 CBC (INCL UDES DIFF/ PLT) MCHC 31.1 g/dL 32.0-3 6.0 low Not Available [address], [address], 02/27/2022 05:55:42 02/27/20 22 02/27/2022 CBC (INCL UDES DIFF/ PLT) RDW 17.1 % 11.0-1 5.0 high Not Available [employer] [address], [address], 02/27/2022 05:55:42 02/27/20 22 02/27/2022 CBC (INCL UDES DIFF/ PLT) platelet count 210 thous and/u L 140-40 0 normal Not Available [address], [address], 02/27/2022 05:55:42 02/27/20 22 02/27/2022 CBC (INCL UDES DIFF/ PLT) MPV 11.3 fL 7.5-12 .5 normal Not Available [address], [address], 02/27/2022 05:55:42 02/27/20 22 02/27/2022 CBC (INCL UDES DIFF/ PLT) absolute neutrophils 3127 cells /uL 1500-7 800 normal Not Available [address], [address], 02/27/2022 05:55:42 02/27/20 22 02/27/2022 CBC (INCL UDES DIFF/ PLT) absolute lymphocytes 1701 cells /uL 850-39 00 normal Not Available [address], [address], 02/27/2022 05:55:42 02/27/20 22 02/27/2022 CBC (INCL UDES DIFF/ PLT) absolute monocytes 432 cells /uL 200-95 0 normal Not Available [address], [address], 02/27/2022 05:55:42 02/27/20 22 02/27/2022 CBC (INCL UDES DIFF/ PLT) absolute eosinophils 103 cells /uL 15-500 normal Not Available [employer] [address], [address], 02/27/2022 05:55:42 02/27/20 22 02/27/2022 CBC (INCL UDES DIFF/ PLT) absolute basophils 38 cells /uL 0-200 normal Not Available [employer] [address], [address], 02/27/2022 05:55:42 02/27/20 22 02/27/2022 CBC (INCL UDES DIFF/ PLT) neutrophils 57.9 % normal Not Available [address], [address], 02/27/2022 05:55:42 02/27/20 22 02/27/2022 CBC (INCL UDES DIFF/ PLT) lymphocytes 31.5 % normal Not Available [address], [address], 02/27/2022 05:55:42 02/27/20 22 02/27/2022 CBC (INCL UDES DIFF/ PLT) monocytes 8.0 % normal Not Available [address], [address], 02/27/2022 05:55:42 02/27/20 22 02/27/2022 CBC (INCL UDES DIFF/ PLT) eosinophils 1.9 % normal Not Available [address], [address], 02/27/2022 05:55:42 02/27/20 22 02/27/2022 CBC (INCL UDES DIFF/ PLT) basophils 0.7 % normal Not Available [address], [address], 02/27/2022 05:55:42 02/27/20 22 02/27/2022 T3, FREE T3, free 3.1 pg/mL 2.3-4. 2 normal Not Available [address], [address], 02/27/2022 05:55:41 02/27/20 22 02/27/2022 COMPR EHENS MERE METAB OLIC PANEL glucose 88 mg/dL 65-99 normal Fasti ng refer ence inter lizbet Not Available [address], [address], 02/27/2022 05:55:41 02/27/20 22 02/27/2022 COMPR EHENS MERE METAB OLIC PANEL urea nitrogen (BUN) 16 mg/dL 7-25 normal Not Available [address], [address], 02/27/2022 05:55:41 02/27/20 22 02/27/2022 COMPR EHENS MERE METAB OLIC PANEL creatinine 0.79 mg/dL 0.50-0 .96 normal Not Available [address], [address], 02/27/2022 05:55:41 02/27/20 22 02/27/2022 COMPR EHENS [...] kdoqi /gfr% 5Fcal culat or Not Available [address], [address], 02/27/2022 05:55:41 02/27/20 22 02/27/2022 COMPR EHENS MERE METAB OLIC PANEL BUN/creatini ne ratio not applic able (calc ) 6-22 Not Available [address], [address], 02/27/2022 05:55:41 02/27/20 22 02/27/2022 COMPR EHENS MERE METAB OLIC PANEL sodium 141 mmol/ L 135-14 6 normal Not Available [address], [address], 02/27/2022 05:55:41 02/27/20 22 02/27/2022 COMPR EHENS MERE METAB OLIC PANEL potassium 4.8 mmol/ L 3.5-5. 3 normal Not Available [address], [address], 02/27/2022 05:55:41 02/27/20 22 02/27/2022 COMPR EHENS MERE METAB OLIC PANEL chloride 112 mmol/ L 98-110 high Not Available [address], [address], 02/27/2022 05:55:41 02/27/20 22 02/27/2022 COMPR EHENS MERE METAB OLIC PANEL carbon dioxide 24 mmol/ L 20-32 normal Not Available [address], [address], 02/27/2022 05:55:41 02/27/20 22 02/27/2022 COMPR EHENS MERE METAB OLIC PANEL calcium 9.2 mg/dL 8.6-10 .2 normal Not Available [address], [address], 02/27/2022 05:55:41 02/27/20 22 02/27/2022 COMPR EHENS MERE METAB OLIC PANEL protein, total 6.6 g/dL 6.1-8. 1 normal Not Available [address], [address], 02/27/2022 05:55:41 02/27/20 22 02/27/2022 COMPR EHENS MERE METAB OLIC PANEL albumin 4.0 g/dL 3.6-5. 1 normal Not Available [address], [address], 02/27/2022 05:55:41 02/27/20 22 02/27/2022 COMPR EHENS MERE METAB OLIC PANEL globulin 2.6 g/dL_ (calc ) 1.9-3. 7 normal Not Available [address], [address], 02/27/2022 05:55:41 02/27/20 22 02/27/2022 COMPR EHENS MERE METAB OLIC PANEL albumin/glob ulin ratio 1.5 (calc ) 1.0-2. 5 normal Not Available [address], [address], 02/27/2022 05:55:41 02/27/20 22 02/27/2022 COMPR EHENS MERE METAB OLIC PANEL bilirubin, total 0.3 mg/dL 0.2-1. 2 normal Not Available [address], [address], 02/27/2022 05:55:41 02/27/20 22 02/27/2022 COMPR EHENS MERE METAB OLIC PANEL alkaline phosphatase 77 U/L 31-125 normal Not Available [address], [address], 02/27/2022 05:55:41 02/27/20 22 02/27/2022 COMPR EHENS MERE METAB OLIC PANEL AST 15 U/L 10-30 normal Not Available [address], [address], 02/27/2022 05:55:41 02/27/20 22 02/27/2022 COMPR EHENS MERE METAB OLIC PANEL ALT 22 U/L 6-29 normal Not Available [address], [address], 02/27/2022 05:55:41 02/27/20 22 02/27/2022 LIPID PANEL WITH RATIO S cholesterol, total 154 mg/dL <200 normal Not Available [address], [address], 02/27/2022 05:55:40 02/27/20 22 02/27/2022 LIPID PANEL WITH RATIO S HDL cholesterol 54 mg/dL > or = 50 normal Not Available [address], [place], [address], 02/27/2022 05:55:40 02/27/20 22 02/27/2022 LIPID PANEL WITH RATIO S triglyceride s 68 mg/dL <150 normal Not Available [employer] [address], [address], 02/27/2022 05:55:40 02/27/20 22 02/27/2022 LIPID PANEL [...] 9): 2061- 2068 (http ://ed ucati on.Qu charisseOz [employer]. com/f aq/FA Q164) Not Available [address], [address], 02/27/2022 05:55:40 02/27/20 22 02/27/2022 LIPID PANEL WITH RATIO S chol/HDLC ratio 2.9 (calc ) <5.0 normal Not Available [address], [address], 02/27/2022 05:55:40 02/27/20 22 02/27/2022 LIPID PANEL WITH RATIO S LDL/HDL ratio 1.6 (calc ) Below avera ge Risk: <2.34 [facility] Risk: 2.35- 4.12 Moder ate Risk: 4.13- 5.56 High Risk: >5.57 Not Available [address], [address], 02/27/2022 05:55:40 02/27/20 22 02/27/2022 LIPID PANEL WITH RATIO S non HDL cholesterol 100 mg/dL _(shawna c) <130 normal For patie nts with diabe shahla plus 1 major ASCVD risk facto r, treat ing to a non-H DL-C goal of <100 mg/dL (LDL- C of <70 mg/dL ) is consi daned a thera peuti c optio n. Not Available [address], [address], 02/27/2022 05:55:40 02/27/2002/27/2022 TSH+F REE T4 TSH 2.25 mIU/L normal Refer ence Range > or = 20 Years 0.40- 4.50 Pregn paloma Range s First trime ster 0.26- 2.66 Secon d trime ster 0.55- 2.73 Third trime ster 0.43- 2.91 Not Available [address], [address], 02/27/2022 05:55:39 02/27/2002/27/2022 TSH+F REE T4 T4, free 1.1 NG/dL 0.8-1. 8 normal Not Available [address], [address], 02/27/2022 05:55:39 04/09/20 23 04/10/2023 IRON, TIBC AND SALINAS TIN PANEL iron, total 68 mcg/d L 40-190 normal Not Available [facility] [address], [address], 04/10/2023 09:15:43 04/09/2004/10/2023 IRON, TIBC AND SALINAS TIN PANEL iron binding capacity 346 mcg/d L_(ca lc) 250-45 0 normal Not Available [facility] [address], [address], 04/10/2023 09:15:43 04/09/20 23 04/10/2023 IRON, TIBC AND SALINAS TIN PANEL % saturation 20 %_(ca lc) 16-45 normal Not Available [address], [address], 04/10/2023 09:15:43 04/09/20 23 04/10/2023 IRON, TIBC AND SALINAS TIN PANEL ferritin 33 NG/mL 16-154 normal Not Available [address], [address], 04/10/2023 09:15:43 04/09/2004/10/2023 TSH+F REE T4 TSH 0.21 mIU/L low Refer ence Range > or = 20 Years 0.40- 4.50 Pregn paloma Range s First trime ster 0.26- 2.66 Secon d trime ster 0.55- 2.73 Third trime ster 0.43- 2.91 Not Available [address], [address], 04/10/2023 09:15:44 04/09/2004/10/2023 TSH+F REE T4 T4, free 1.5 NG/dL 0.8-1. 8 normal Not Available [address], [address], 04/10/2023 09:15:44 04/09/20 23 04/10/2023 LIPID PANEL WITH RATIO S cholesterol, total 165 mg/dL <200 normal Not Available [address], [address], 04/10/2023 09:15:45 04/09/2004/10/2023 LIPID PANEL WITH RATIO S HDL cholesterol 48 mg/dL > or = 50 low Not Available [address], [address], 04/10/2023 09:15:45 04/09/2004/10/2023 LIPID PANEL WITH RATIO S triglyceride s 90 mg/dL <150 normal Not Available [address], [address], 04/10/2023 09:15:45 04/09/2004/10/2023 LIPID PANEL WITH RATIO [...] 2061- 2068 (http ://ed ucati on.Qu charisseDi MATINAS BIOPHARMA. com/f aq/FA Q164) Not Available [address], [address], 04/10/2023 09:15:45 04/09/2004/10/2023 LIPID PANEL WITH RATIO S chol/HDLC ratio 3.4 (calc ) <5.0 normal Not Available [address], [address], 04/10/2023 09:15:45 04/09/2004/10/2023 LIPID PANEL WITH RATIO S LDL/HDL ratio 2.1 (calc ) Below avera ge Risk: <2.34 [facility] Risk: 2.35- 4.12 Moder ate Risk: 4.13- 5.56 High Risk: >5.57 Not Available [facility] [address] [address] [place], [address], 04/10/2023 09:15:45 04/09/2004/10/2023 LIPID PANEL WITH RATIO S non HDL cholesterol 117 mg/dL _(shawna c) <130 normal For patie nts with diabe shahla plus 1 major ASCVD risk facto r, treat ing to a non-H DL-C goal of <100 mg/dL (LDL- C of <70 mg/dL ) is michael kellogg optio n. Not Available [address] [address] [place], [address], 04/10/2023 09:15:45 04/09/2004/10/2023 COMPR EHENS MERE METAB OLIC PANEL glucose 80 mg/dL 65-99 normal Fasti ng refer ence inter lizbet Not Available [address] [address] [place], [address], 04/10/2023 09:15:46 04/09/2004/10/2023 COMPR EHENS MERE METAB OLIC PANEL urea nitrogen (BUN) 13 mg/dL 7-25 normal Not Available [address] [address] [place], [address], 04/10/2023 09:15:46 04/09/2004/10/2023 COMPR EHENS MERE METAB OLIC PANEL creatinine 0.66 mg/dL 0.50-0 .97 normal Not Available [address] [address] [place], [address], 04/10/2023 09:15:46 04/09/2004/10/2023 COMPR EHENS MERE METAB OLIC PANEL eGFR 121 mL/mi n/1.7 3m2 > or = 60 normal Not Available [address] [place], [address], 04/10/2023 09:15:46 04/09/2004/10/2023 COMPR EHENS MERE METAB OLIC PANEL BUN/creatini ne ratio SEE NOTE: (calc ) 6-22 Not Repor charmaine: BUN and Creat inine are withi n refer ence range . Not Available [address], [address], 04/10/2023 09:15:46 04/09/2004/10/2023 COMPR EHENS MERE METAB OLIC PANEL sodium 139 mmol/ L 135-14 6 normal Not Available [address], [address], 04/10/2023 09:15:46 04/09/2004/10/2023 COMPR EHENS MERE METAB OLIC PANEL potassium 4.0 mmol/ L 3.5-5. 3 normal Not Available [address], [address], 04/10/2023 09:15:46 04/09/2004/10/2023 COMPR EHENS MERE METAB OLIC PANEL chloride 106 mmol/ L 98-110 normal Not Available [address], [address], 04/10/2023 09:15:46 04/09/2004/10/2023 COMPR EHENS MERE METAB OLIC PANEL carbon dioxide 24 mmol/ L 20-32 normal Not Available [address], [address], 04/10/2023 09:15:46 04/09/2004/10/2023 COMPR EHENS MERE METAB OLIC PANEL calcium 9.0 mg/dL 8.6-10 .2 normal Not Available [address], [address], 04/10/2023 09:15:46 04/09/2004/10/2023 COMPR EHENS MERE METAB OLIC PANEL protein, total 6.7 g/dL 6.1-8. 1 normal Not Available [address], [address], 04/10/2023 09:15:46 04/09/2004/10/2023 COMPR EHENS MERE METAB OLIC PANEL albumin 4.2 g/dL 3.6-5. 1 normal Not Available [address], [address], 04/10/2023 09:15:46 04/09/2004/10/2023 COMPR EHENS MERE METAB OLIC PANEL globulin 2.5 g/dL_ (calc ) 1.9-3. 7 normal Not Available [address], [address], 04/10/2023 09:15:46 04/09/2004/10/2023 COMPR EHENS MERE METAB OLIC PANEL albumin/glob ulin ratio 1.7 (calc ) 1.0-2. 5 normal Not Available [address], [address], 04/10/2023 09:15:46 04/09/2004/10/2023 COMPR EHENS MERE METAB OLIC PANEL bilirubin, total 0.7 mg/dL 0.2-1. 2 normal Not Available [address], [address], 04/10/2023 09:15:46 04/09/2004/10/2023 COMPR EHENS MERE METAB OLIC PANEL alkaline phosphatase 96 U/L 31-125 normal Not Available [address], [address], 04/10/2023 09:15:46 04/09/2004/10/2023 COMPR EHENS MERE METAB OLIC PANEL AST 44 U/L 10-30 high Not Available [address], [address], 04/10/2023 09:15:46 04/09/20 23 04/10/2023 COMPR EHENS MERE METAB OLIC PANEL ALT 113 U/L 6-29 high Not Available [address] [place], [address], 04/10/2023 09:15:46 04/09/2004/10/2023 HEMOG LOBIN A1C hemoglobin [...] Care in Diabe shahla(A DA). Not Available [facility] [address], [address], 04/10/2023 09:15:47 04/09/2004/10/2023 T3, FREE T3, free 3.0 pg/mL 2.3-4. 2 normal Not Available [facility] [address] [address] [place], [address], 04/10/2023 09:15:48 04/09/2004/10/2023 CBC (INCL UDES DIFF/ PLT) white blood cell count 5.9 thous and/u L 3.8-10 .8 normal Not Available [facility] [address] [address] [place], [address], 04/10/2023 09:15:49 04/09/2004/10/2023 CBC (INCL UDES DIFF/ PLT) red blood cell count 4.40 shade on/uL 3.80-5 .10 normal Not Available [address], [address], 04/10/2023 09:15:49 04/09/2004/10/2023 CBC (INCL UDES DIFF/ PLT) hemoglobin 13.3 g/dL 11.7-1 5.5 normal Not Available [address], [address], 04/10/2023 09:15:49 04/09/2004/10/2023 CBC (INCL UDES DIFF/ PLT) hematocrit 38.7 % 35.0-4 5.0 normal Not Available [address], [address], 04/10/2023 09:15:49 04/09/2004/10/2023 CBC (INCL UDES DIFF/ PLT) MCV 88.0 fL 80.0-1 00.0 normal Not Available [address], [address], 04/10/2023 09:15:49 04/09/2004/10/2023 CBC (INCL UDES DIFF/ PLT) MCH 30.2 pg 27.0-3 3.0 normal Not Available [address], [address], 04/10/2023 09:15:49 04/09/2004/10/2023 CBC (INCL UDES DIFF/ PLT) MCHC 34.4 g/dL 32.0-3 6.0 normal Not Available [address], [address], 04/10/2023 09:15:49 04/09/2004/10/2023 CBC (INCL UDES DIFF/ PLT) RDW 12.8 % 11.0-1 5.0 normal Not Available [address], [address], 04/10/2023 09:15:49 04/09/2004/10/2023 CBC (INCL UDES DIFF/ PLT) platelet count 162 thous and/u L 140-40 0 normal Not Available [address], [address], 04/10/2023 09:15:49 04/09/2004/10/2023 CBC (INCL UDES DIFF/ PLT) MPV 12.3 fL 7.5-12 .5 normal Not Available [address], [address], 04/10/2023 09:15:49 04/09/2004/10/2023 CBC (INCL UDES DIFF/ PLT) absolute neutrophils 3729 cells /uL 1500-7 800 normal Not Available [address], [address], 04/10/2023 09:15:49 04/09/2004/10/2023 CBC (INCL UDES DIFF/ PLT) absolute lymphocytes 1682 cells /uL 850-39 00 normal Not Available [address], [address], 04/10/2023 09:15:49 04/09/2004/10/2023 CBC (INCL UDES DIFF/ PLT) absolute monocytes 319 cells /uL 200-95 0 normal Not Available [address], [address], 04/10/2023 09:15:49 04/09/2004/10/2023 CBC (INCL UDES DIFF/ PLT) absolute eosinophils 130 cells /uL 15-500 normal Not Available [address], [address], 04/10/2023 09:15:49 04/09/2004/10/2023 CBC (INCL UDES DIFF/ PLT) absolute basophils 41 cells /uL 0-200 normal Not Available [address], [address], 04/10/2023 09:15:49 04/09/2004/10/2023 CBC (INCL UDES DIFF/ PLT) neutrophils 63.2 % normal Not Available [address], [address], 04/10/2023 09:15:49 04/09/2004/10/2023 CBC (INCL UDES DIFF/ PLT) lymphocytes 28.5 % normal Not Available [address], [address], 04/10/2023 09:15:49 04/09/2004/10/2023 CBC (INCL UDES DIFF/ PLT) monocytes 5.4 % normal Not Available [address], [address], 04/10/2023 09:15:49 04/09/2004/10/2023 CBC (INCL UDES DIFF/ PLT) eosinophils 2.2 % normal Not Available [address], [address], 04/10/2023 09:15:49 04/09/2004/10/2023 CBC (INCL UDES DIFF/ PLT) basophils 0.7 % normal Not Available [address], [address], 04/10/2023 09:15:49 04/09/2004/10/2023 VITAM IN B12/F OLATE , SERUM PANEL vitamin B12 817 pg/mL 200-11 00 normal Not Available [address], [address], 04/10/2023 09:15:50 04/09/2004/10/2023 VITAM IN B12/F OLATE , SERUM PANEL folate, serum 22.4 NG/mL normal Refer ence Range Low: <3.4 Borde rline : 3.4-5 .4 Richelle l: >5.4 Not Available [address], [address], 04/10/2023 09:15:50 07/08/1907/09/2023 HEPAT IC FUNCT ION PANEL protein, total 7.0 g/dL 6.1-8. 1 normal Not Available [address], [address], 07/09/2023 02:19:54 07/08/1907/09/2023 HEPAT IC FUNCT ION PANEL albumin 4.5 g/dL 3.6-5. 1 normal Not Available [address], [address], 07/09/2023 02:19:54 07/08/19 24 07/09/2023 HEPAT IC FUNCT ION PANEL globulin 2.5 g/dL_ (calc ) 1.9-3. 7 normal Not Available [address], [address], 07/09/2023 02:19:54 07/08/19 24 07/09/2023 HEPAT IC FUNCT ION PANEL albumin/glob ulin ratio 1.8 (calc ) 1.0-2. 5 normal Not Available [address], [address], 07/09/2023 02:19:54 07/08/1907/09/2023 HEPAT IC FUNCT ION PANEL bilirubin, total 0.6 mg/dL 0.2-1. 2 normal Not Available [address], [address], 07/09/2023 02:19:54 07/08/19 24 07/09/2023 HEPAT IC FUNCT ION PANEL bilirubin, direct 0.1 mg/dL < or = 0.2 normal Not Available [address], [address], 07/09/2023 02:19:54 07/08/19 24 07/09/2023 HEPAT IC FUNCT ION PANEL bilirubin, indirect 0.5 mg/dL _(shawna c) 0.2-1. 2 normal Not Available [address], [address], 07/09/2023 02:19:54 07/08/19 24 07/09/2023 HEPAT IC FUNCT ION PANEL alkaline phosphatase 90 U/L 31-125 normal Not Available [facility] [employer] [address], [address], 07/09/2023 02:19:54 07/08/19 24 07/09/2023 HEPAT IC FUNCT ION PANEL AST 23 U/L 10-30 normal Not Available [address], [address], 07/09/2023 02:19:54 07/08/19 24 07/09/2023 HEPAT IC FUNCT ION PANEL ALT 30 U/L 6-29 high Not Available [address], [address], 07/09/2023 02:19:54 07/08/19 24 07/09/2023 GGT GGT 20 U/L 3-50 normal Not Available [address], [address], 07/09/2023 02:20:01 04/13/20 21 04/11/2021 US, thyro id No observ ation record ed. [id number] [facility] [address], [place], [address], 08/29/2022 20:04:29 05/14/20 22 05/14/2022 diagn ostic colon oscop y (PROC ) No observ ation record ed. [id number] [facility] (Medical Records) [address], [place], [address], 08/29/2022 20:04:29 Result Notes None recorded. Problems Name Problem SNOMED Code Status Onset Date Resolution Date Notes Provider Name and Address Organization Details Recorded Time Hypothyroidis m 46663194 Active 2018 Not Available [facility] 3 20:02:43 Allergic rhinitis 92464650 Active 2018 Not Available [facility] 3 20:02:43 Loss of hair 948710778 Active 2021 Not Available [facility] 3 20:02:43 Low back pain 186767858 Active 2021 Not Available [facility] 3 20:02:43 Sleep disorder 08089496 Active 2021 Not Available [facility] 3 20:02:43 Mild major depression 58325302 Active 2021 Not Available [facility] 3 20:02:43 Microcytic hypochromic anemia 30380405 Active 2021 Not Available [facility] 3 20:02:43 Hematochezia 122327425 Active 2021 Not Available [facility] 3 20:02:43 Iron deficiency anemia 54587950 Active 2022 Not Available [facility] 3 20:02:44 Liver enzymes level above reference range 487429591 Active 2023 ANTON Joseph [address] [facility], [facility] [address], [place], [address] , [facility] 4 15:50:23 Problem Notes None recorded. 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 Procedure [...] % 94 /min 16 /min 98.1 [degF] 89674.8 8 g 118/78 mm[Hg] Not Available [facility] 3 20:02:26 Date Recorded Body mass index (BMI) Body height Oxygen saturation Oxygen saturation in Arterial blood by Pulse oximetry Heart rate Body temperature Body weight Systolic And Diastolic Provider Name and Address Organization Details Last Updated DateTime 1 32.9 kg/m2 167.01 cm 99 % 99 % 98 /min 97.3 [degF] 17498.3 8 g 120/80 mm[Hg] Not Available [facility] 3 20:02:26 Date Recorded Body mass index (BMI) Body height Oxygen saturation Oxygen saturation in Arterial blood by Pulse oximetry Heart rate Respiratory rate Body temperature Body weight Systolic And Diastolic Provider Name and Address Organization Details Last Updated DateTime 2 32.1 kg/m2 167.01 cm 98 % 98 % 86 /min 16 /min 97.5 [degF] 31170.1 3 g 122/80 mm[Hg] Not Available [facility] 3 20:02:27 Date Recorded Body height Provider Name an d Address Organization Details Last Updated DateTime 03/22/2023 167.01 cm CLARISA Ramirez [employer] 03/22/2023 11:02:57 Date Recorded Body height Body temperature Body mass index (BMI) Body weight Heart rate Oxygen saturation Oxygen saturation in Arterial blood by Pulse oximetry Systolic And Diastolic Provider Name and Address Organization Details Last Updated DateTime 3 167.01 cm 97.2 [degF] 30.6 kg/m2 01962.3 7 g 84 /min 99 % 99 % 118/80 mm[Hg] Shyanne Calderon RN [facility] [employer] 3 11:23:22 Social History Question Answer Notes LastModified by Organizat ion Details LastModified Time Tobacco Smoking Status Never Smoker Irma Leija CLARISA null, [place] [employer] [facility] [employer] 03/22/2023 11:02:35 Do You Have An Advance Directive? No [id number] Information not available 08/29/2022 What Is Your Level Of Caffeine Consumption? Moderate [id number] Information not available 08/29/2022 In The 14 Days Before Symptom Onset, Have You Had Close Contact With A Laboratory-confirm ed COVID-19 While That Case Was Ill? No [email or web address] Information n ot available 03/22/2023 In The 14 Days Before Symptom Onset, Have You Had Close Contact With A Person Who Is Under Investigation For COVID-19 While That Person Was Ill? No [email or web address] Information not available 03/22/2023 What Type Of Diet Are You Following? REGULAR [id number] Information not available 08/29/2022 Have There Been Any Changes To Your Family Or Social Situation? No [email or web address] Information no t available 03/22/2023 Are There Any Guns Present In Your Home? Yes [email or web address] Information not available 03/22/2023 Do You Use Insect Repellent Routinely? No [email or web address] Information not available 03/22/2023 Do You Have A Medical Power Of Ultrasound Technician? No [email or web address] Information not available 03/22/2023 What Is Your Relationship Status? [id number] Information not available 08/29/2022 Do You Use Your Seat Belt Or Car Seat Routinely? Yes [email or web address] Information not available 03/22/2023 Do You Have Smoke And Carbon Monoxide Detectors In Your Home? Yes [email or web address] Information not available 03/22/2023 Do You Use Sunscreen Routinely? Yes [email or web address] Information not available 03/22/2023 Have You Recently Traveled Abroad? No [email or web address] Information not available 03/22/2023 Do You Have Any Dietary Restrictions? No [email or web address] Information not available 03/22/2023 Sex: Unknown Functional Status Question Answer Note LastModified by [employer] ion Details LastModified Time Do you use any illicit or recreational drugs? No [email or web address] Information not available 03/22/2023 Do you or have you ever used any other forms of tobacco or nicotine? No Information not available 03/22/2023 What is your level of alcohol consumption? Occasional [id number] Information not available 08/29/2022 What is your exercise level? Occasional [id number] Information not available 08/29/2022 Mental Status None recorded. Family History Relationship Description Onset Age of this Age Resolved Age Notes LastModified by Organization Details LastModified Time Father Myocardial infarction [id number] Not available 08/29/2022 20:01:16 Maternal Grandmother Malignant neoplasm of skin [email or web address] Not available 03/22 11:02:34 Medical History Condition Response OTHER # 1 Y EYE PROBLEMS Y BACK / NECK PROBLEMS Y Gynecological [...] SNOMED-CT Code Diagnosis ICD10 Code Diagnosis Note [id number] [facility] ic_Gateway _ATHENA_M IGRATION_ DEFAULT_1 _1 , 01/30/2021 00:00:00 01/30/2021 12:21:36 [id number] ANTON Joseph [facility] Internal Med [place] [address] [place] [address] 03/13/2021 00:00:00 03/30/2021 00:20:29 [id number] Sukhi Browne MD [facility] Internal Med [place] [address] [place] [address] 02/21/2022 00:00:00 02/25/2022 09:00:13 [id number] ANTON Joseph [facility] Internal Med [place] [address] [place] [address] 03/21/2022 00:00:00 03/26/2022 09:53:28 [id number] ANTON Joseph [facility] Internal Med [place] [address] [place] [address] 03/22/2023 11:02:21 03/22/2023 11:12:22 [id number] ANTON Joseph [facility] Internal Med [place] [address] [place] [address] 04/08/2023 11:17:41 04/08/2023 11:50:26 Adult health examination 802019181 Z00.01 annual wellness completed. All labs are due, fasting. Hypothyroidism 80985677 E03.9 on thyroid supplement . due for TFT panel to monitor dosing. Mild major depression 87 410487 F32.0 stable on bupropion XL 150mg daily. Discussed w/pt that she will need to come OFF medication prior to trying to conceive child. Iron defic iency anemia 27053491 D50.9 due for iron studies. colonoscop y completed and stable. Loss of hair 586960949 L 65.9 screening b12 and folate labs due Long-term drug therapy 602334255 Z79.899 routine cmp due Diabetes m ellitus screening 868235821 Z13.1 screening a1c due Cholesterol screening 27 3100832 Z13.220 fasting lipids due Health Concerns Section Related Observation LastModified by Organization Detai ls LastModified Time None Recorded Concern Status LastModified by Organization Details LastModified Time None Recorded Advance Directives Directive N: Payers Insurance Date Sequence Insurance Name Policy Number Policy Howard Covered Member ID Howard Member ID Guarantor Name 04/03/2023 1 [facility] (O) [id number] Zohra Chávez [id number] Zohra Chávez 05/01/2023 1 [facility] [id number] Zohra Chávez [id number] Zohra Chávez OBGyn Episode No OBEpisode recorded.
--- OUTSIDE RECORDS SUMMARY | 2025-01-25 08:17 | XMS_ITS | Data Portability ---
Author Organization [facility] Address [address] [place] [address] Assessment No assessment recorded. Plan of Treatment Reminders Order Date Submit Date Provider Last Modified By Organization Details Last Modified Time Details Appointments ANY 15 2024 10:45A ANTON Hunt Not available Not available Not available Lab lipid panel, serum 2023 024 [employer] [facility], [address], [place], [address], 02/18/2024 12:05:56 CMP, serum or plasma 2023 024 [employer] [facility], [address], [place], [address], 02/18/2024 12:05:57 CBC w/ auto diff 2023 024 [employer] [facility], [address], [place], [address], 02/18/2024 12:05:57 HbA1c (hemoglo bin A1c), blood 2023 024 [employer] [facility], [address], [place], [address], 02/18/2024 12:05:57 TSH + free T4, serum 2023 024 [employer] [facility], [address], [place], [address], 02/18/2024 12:05:56 T3, free, serum or plasma 2023 024 [employer] [facility], [address], [place], [address], 02/18/2024 12:05:57 insulin, serum 2023 024 [employer] [facility], [address], [place], [address], 02/18/2024 12:05:57 Referral None recorded . Procedures None recorded . Surgeries None recorded . Imaging None recorded . Medication Orders None recorded . Patient TargetsNo targets recorded. Patient Instructions Encounter Date Encounter Id Patient Instructions Last Modified By Organization Details Last Modified Time 02/10/2024 [id number] A healthy lifestyle: care instructions [email or web address] Not available 02/29/2024 17:44:16 Reason for Referral None Reported. Results Created Date Observation Date Name Description Value Unit Range Abnormal Flag Note LastModifiedBy Organization Detail LastModifiedTime Result Notes None recorded. Problems Name Problem SNOMED Code Status Onset Date Resolution Date Notes Provider Name and Address Organization Details Recorded Time Hypothyroidism 39711603 Active 2023 Irma Leija [facility], [place] - [facility] 4 15:54:10 Body mass index 30+ - obesity 551477495 Active 2023 ANTON Joseph Attn: Jm prieto,[address] [facility], [place], [address], [place] - [facility] 4 17:43:38 Long-term drug therapy Active 2023 ANTON Joseph Attn: Onesimoin g,[address] [facility], [place], [address], [place] [facility] 4 17:44:04 Obesity 999172791 Active 2023 ANTON Joseph Attn: Jm prieto,[address] [facility], [place], [address], [place] - [facility] 4 17:44:14 Problem Notes None recorded. Procedures Surgical History Date Name Laterality Status Provider Name and Address Organization Details Recorded Time 1 [facility] 16:10:11 9 dilation and curettage completed Irma Leija [facility] 02/10/2024 16:09:36 Imaging Results None [...] 02/10/2024 120/80 mm[Hg] ANTON Joseph Attn: Accounting,[address] [place], [address], [place] [facility] 02/10/2024 12:37:02 Date Recorded Body weight Body mass index (BMI) Body height Respiratory rate Oxygen saturation Oxygen saturation in Arterial blood by Pulse oximetry Heart rate Systolic And Diastolic Provider Name and Address Organization Details Last Updated DateTime 4 15339.0 7 g 33.4 kg/m2 165.1 cm 16 /min 98 % 98 % 104 /min 128/82 mm[Hg] Irma Leija [facility] 4 11:55:35 Social History Question Answer Notes LastModified by Organizat ion Details LastModified Time Tobacco Smoking Status Never Smoker Irma Leija [facility], [place] - [facility] 02/10/2024 11:57:24 Do You Have An Advance Directive? No Information not available 02/10/2024 Are You Blind Or Do You Have Difficulty Seeing? Yes Has Glasses Information not available 02/10/2024 What Is Your Level Of Caffeine Consumption? Moderate [email or web address] Information not available 02/10/2024 In The 14 Days Before Symptom Onset, Have You Had Close Contact With A Laboratory-confir med COVID-19 While That Case Was Ill? No [email or web address] Information not available 02/10/2024 In The 14 Days Before Symptom Onset, Have You Had Close Contact With A Person Who Is Under Investigation For COVID-19 While That Person Was Ill? No [email or web address] Information not available 02/10/2024 Have You Been To An Area Known To Be High Risk For COVID-19? No [email or web address] Information not available 02/10/2024 Are You Deaf Or Do You Have Serious Difficulty Hearing? No [email or web address] Information not available 02/10/2024 What Type Of Diet Are You Following? REGULAR [email or web address] Information not available 02/10/2024 Are There Any Guns Present In Your Home? Yes [email or web address] Information not available 02/10/2024 What Was The Date Of Your Most Recent Tobacco Screening? 02/10/2024 [email or web address] Information not available 02/10/2024 What Is Your Relationship Status? [email or web address] Information not available 02/10/2024 Do You Use Your Seat Belt Or Car Seat Routinely? Yes [email or web address] Information not available 02/10/2024 Do You Have Smoke And Carbon Monoxide Detectors In Your Home? Yes [email or web address] Information not available 02/10/2024 Do You Use Sunscreen Routinely? Yes [email or web address] Information not available 02/10/2024 Has Tobacco Cessation Counseling Been Provided? Yes Information not available 02/10/2024 On What Date Was Tobacco Cessation Counseling Provided? 02/10/2024 [email or web address] Information not available 02/10/2024 Sex: Unknown Functional Status Question Answer Note LastModified by Organizat ion Details LastModified Time Do you use any illicit or recreational drugs? No [email or web address] Information not available 02/10/2024 Do you or have you ever used any other forms of tobacco or nicotine? No [email or web address] Information not available 02/10/2024 What is your level of alcohol consumption? Occasional [email or web address] Information not available 02/10/2024 Are you currently employed? Yes [email or web address] Information not available 02/10/2024 Are you able to care for yourself independently? Yes [email or web address] Information not available 02/10/2024 What is your exercise level? Occasional [email or web address] Information not available 02/10/2024 Mental Status None recorded. Family History Relationship Description Onset Age of this Age Resolved Age Notes LastModified by Organization Details LastModified Time Father Myocardial infarction [email or web address] Not available 01/29 11:57:02 Brother Diabetes mellitus [email or web address] Not available 02/09 16:09:56 Medical History Condition Response Thyroid Problems Y Gynecological HistoryNo gynecological history recorded. Obstetrics History GPAL:G 0 P 0 0 0 0 Past Encounters Encounter ID Performer Location Encounter Start Date Encounter Closed Date Diagnosis/Indication Diagnosis SNOMED-CT Code Diagnosis ICD10 Code Diagnosis Note [id number] Sukhi Browne MD [facility] [address] [place] [address] 02/10/2024 11:44:34 02/10/2024 13:01:48 Body mass index 30+ - obesity 882465246 Z68.33 BMI is 33.4. Screening fasting insulin lab ordered Adult [facility] th examination 405425955 Z00.00 Annual wellness exam complete Cholesterol screening 27 0056586 Z13.220 Annual fasting lipid panel ordered Diabetes m ellitus screening 380112006 Z13.1 Diabetes screening ordered Hypothyroidism 21006282 E03.9 Continue Synthroid 112 mcg daily and due for updated thyroid function lab panel Long-term drug therapy 070588243 Z79.899 Routine CBC and CMP due Obesity 345168693 E66.8 Patient is actively losing weight and has improve diet and exercise. Health Concerns Section Related Observation LastModified by Organization Detai ls LastModified Time None Recorded Concern Status LastModified by Organization Details LastModified Time None Recorded Advance Directives Directive N: Payers Insurance Date Sequence Insurance Name Policy Number Policy Howard Covered Member ID Howard Member ID Guarantor Name 03/03/2024 1 [facility] (O) [id number] Josh Chávez [id number] Zohra Chávez OBGyaaron Episode No OBEpisode recorded.
[2025-01-25 08:44] LABS: Glucose Fasting Gestational 89 mg/dL (>/=95)
[2025-01-25 08:54] LABS: Hemoglobin A1C 4.9 % (<5.7)
[2025-01-25 11:03] LABS: Glucose 1 Hour Gest 202 mg/dL (>/=180)
[2025-01-25 11:29] LABS: Glucose 2 Hour Gest 194 mg/dL (>/= 155)
[2025-01-25 12:28] LABS: Glucose 3 Hour Gest 109 mg/dL (>/=140)
== END 2025-01-25 08:09 | disposition home or self-care (01) ==
PROVIDERS: Visit Provider Obstetrics & Gynecology
DX: O99.810 Abnormal glucose complicating pregnancy (principal); Z3A.00 Weeks of gestation of pregnancy not specified
CPT/HCPCS: 36415; 82951; 82952; 83036

== ENCOUNTER 2025-06-18 10:36 | Outpatient (CLI) | payer OTHER, SELFPAY ==
[2025-06-18 10:52] LABS: Hematocrit 36.2 % (37.0-47.0); Hemoglobin 12.0 g/dL (12.0-15.0); Immature Platelet Fraction Pct 5.6 % (0.9-11.2); Mean Corpuscular HGB Conc 33.1 g/dl (32-36); Mean Corpuscular Hemoglobin 31.2 pg (26-34); Mean Corpuscular Volume 94.0 fl (80-100); Platelet Count Result 133 k/mm3 (150-375); Red Blood Count 3.85 M/mm3 (4.2-5.4); White Blood Count 9.9 K/mm3 (4.5-10.0)
--- OUTSIDE RECORDS SUMMARY | 2025-06-18 11:08 | XMS_ITS | Clinical Summary ---
Author Organization [email or web address] Address [address] [place] [address] Care Team Providers Care Channel Marketing Specialist Name Role Phone Unknown, Provider Primary Care Provider Unavaila ble Source Comments [facility] [email or web address],non-owned Affiliates and Associated Physician Practices is amultiple site organization consisting of ambulatory clinics and hospital sitesin [place], [place], [place] and [place]. This disclosure is being madepursuant to the Care Everywhere program and may not contain all information available regarding this patient. Last updated 18.[email or web address] Allergies No known active allergies Medications * This document contains information received from the source organization and may not represent a complete record from that organization. * Be aware that medications may not be up to date on this document. Alwaysverify current medications with the patient. levothyroxine (Synthroid) 112 MCG tablet Take 1 (one) tablet by mouth daily before breakfast Active Vit-DSS-Fe Fum-FA ( vitamin with iron) tablet Take 1 (one) tablet by mouth once daily Active cetirizine (ZyrTEC) 10 MG tablet Take 1 (one) tablet by mouth once daily Active aspirin (Aspirin) 81 MG chew tablet Take 2 (two) tablets by mouth at bedtime (chew and swallow) Active Progesterone 100 MG capsule Take 2 (two) capsules by mouth at bedtime Active Glucagon (Baqsimi One Pack) 3 MG/DOSE POWD [place] 1 spray into the nose as needed 1 Each 03/10/20 25 Active insulin pen needle (Novofine) 32G X 6 MM MISCIndications :Diabetes mellitus during in second trimester, unspecified diabetes mellitus type (HCC) 1 (one) Each by Injection route twice daily, before breakfast & at bedtime. 100 Each 3 04/14/20 25 Active insulin glargine (Lantus/Semglee ) 100 units/mL penIndications: Diabetes mellitus during in second trimester, unspecified diabetes mellitus type (HCC) Prime needle with 2 units waste, then inject 5 units every morning and 7 units every night. Increase bedtime dose by 1 unit if fasting blood sugar is >90 mg/dL for 2 consecutive days on same dose. Max total daily dose of 50 units. 15 mL 5 06/02/20 25 Active insulin glargine (Lantus/Semglee ) 100 units/mL penIndications: Diabetes mellitus during in second trimester, unspecified diabetes mellitus type (HCC) Prime needle with 2 units waste, then inject 5 units every morning and 6 units every night. Increase bedtime dose by 1 unit if fasting blood sugar is >90 mg/dL for 2 consecutive days on same dose. Max total daily dose of 50 units. 15 mL 5 05/05/20 25 025 Discontinued insulin glargine (Lantus/Semglee ) 100 units/mL penIndications: Diabetes mellitus during in second trimester, unspecified diabetes mellitus type (HCC) Prime needle with 2 units waste, then inject 6 units every morning and 7 units every night. Increase bedtime dose by 1 unit if fasting blood sugar is >90 mg/dL for 2 consecutive days on same dose. Max total daily dose of 50 units. 15 mL 5 05/26/20 25 025 Discontinued Active Problems Problem Noted Date Diagnosed Date Gestational diabetes requiring insulin Obesity affecting , antepartum, first t rimester 02/10/2025 Hypothyroidism affecting in first trim jd 02/10/2025 Estimated Date of Delivery Comme nts Yes 08/19/2025 Based on last me nstrual period of 11/12/2024 Resolved Problems Problem Noted Date Diagnosed Date Resolved Date Diet controlled gestational diabetes mellitus (GDM) in first trimester 02/10/2025 05/05/2025 Encounters Date Type Department Care Team Description 06/15/2025 7:31 PM OUTSOLE COMPRESSOR - 06/15/2025 10:31 PM [facility] Hospital Encounter [facility] [address] [phone] Ye Prather MD Discharge Disposition: Home or Self Care 06/15/2025 Travel 06/11/2025 2:11 PM OUTSOLE COMPRESSOR - 06/11/2025 11:59 PM OUTSOLE COMPRESSOR Hospital Encounter [facility] [address] [place] [phone] Nicki López MD Discharge Disposition: Home or Self Care 06/11/2025 [facility] [address] [place], [place] [phone] Daja Oliver RN Question (Patient called and reports her dexcom the past 2 times have not been wanting to read her blood sugars or are reading them low. 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 ) 06/04/2025 2:20 PM OUTSOLE COMPRESSOR - 06/04/2025 11:59 PM OUTSOLE COMPRESSOR Hospital Encounter [facility] [address] [place], [place] [phone] Lisa Abad MD Discharge Disposition: Home or Self Care 06/02/2025 8:15 AM OUTSOLE COMPRESSOR - 06/02/2025 11:59 PM OUTSOLE COMPRESSOR Hospital Encounter [facility] [address] [place], [place] [phone] Kirsten Ugalde MD Discharge Disposition: Home or Self Care 05/07/2025 11:15 AM OUTSOLE COMPRESSOR - 05/07/2025 11:59 PM OUTSOLE COMPRESSOR Hospital Encounter [facility] [address] [place] [phone] Khang Moe MD Discharge Disposition: Home or Self Care 05/05/2025 9:43 AM OUTSOLE COMPRESSOR - 05/05/2025 11:59 PM OUTSOLE COMPRESSOR Hospital Encounter [facility] [address] [place] [phone] Khang Moe MD Discharge Disposition: Home or Self Care 04/09/2025 8:51 AM CDT - 04/09/2025 11:59 PM CDT Hospital Encounter [facility] [address] [place] [phone] Kirsten Ugalde MD Dildy, Gary A, MD Discharge Disposition: Home or Self Care 04/07/2025 9:44 AM CDT - 04/07/2025 11:59 PM CDT Hospital Encounter [facility] [address] [place] [address] [phone] Kirsten Ugalde MD Discharge Disposition: Home or Self Care 04/05/2025 Orders Only [facility] [address] [place] [address] [phone] Daja Oliver RN from Last 3 Months Social History Tobacco Use Types Packs/Day Years Used Date Smoking Tobacco: Never Smokeless Tobacco: Never Tobacco Cessation:Counseling Given: Not Answered Alcohol Use Standard Drinks/Week Comments Not Currently 0 (1 standard drink = 0.6 oz pur e alcohol) Humiliation, Afraid, Rape, and Kick questionnair e Answer Date Recorded Within the last year, have y ou been afraid of your partner or ex-partner? No 06/15/2025 Within the last year, have y ou been humiliated or emotionally abused in other ways by your partner or ex-partner? No Within the last year, have y ou been kicked, hit, slapped, or otherwise physically hurt by your partner or ex-partner? No 06/15/2025 Within the last year, have y ou been raped or forced to have any kind of sexual activity by your partner or ex-partner? No 06/15/2025 [facility] Health - Occupational Stress Questionnaire Answer Date Recorded Do you feel stress - tense, restless, nervous, or anxious, or unable to sleep at night because your mind is troubled all the time - these days? Not at all 06/15/2025 Hunger Vital Sign Answer Date Recorded Within the past 12 months, y ou worried that your food would run out before you got the money to buy more. Never true 06/15/20 25 Within the past 12 months, t he food you bought just didn't last and you didn't have money to get more. Never true 06/15/2025 PRAPARE - Transportation Answer Date Re corded In the past 12 months, has l ack of transportation kept you from medical appointments or from getting medications? No 05/31 In the past 12 months, has l ack of transportation kept you from meetings, work, or from getting things needed for daily living? No 06/15/2025 Housing Stability Vital Sign Answer Amos e Recorded In the last 12 months, was t here a time when you were not able to pay the mortgage or rent on time? No 06/15/2025 Number of Times Moved in the Last Year Not on fi le 06/15/2025 At any time in the past 12 m [facility], were you homeless or living in a intermediate (including now)? No 06/15/2025 [facility] Utilities Answer Date Recorded In the past 12 months has th e electric, gas, oil, or water company threatened to shut off services in your home? No 06/15/2025 Estimated Date of Delivery Comme nts Yes 08/19/2025 Based on last me nstrual period of 11/12/2024 Sex and Gender Information Value Date Recorded Sex Assigned at Not on file Legal Sex Female 4:11 AM CDT Gender Identity Not on file Sexual Orientation Not on file Last Filed Vital Signs Vital Sign Reading Time Taken Comments Blood Pressure 108/62 06/15/2025 10:13 PM OUTSOLE COMPRESSOR Pulse 72 06/15/2025 10:13 PM OUTSOLE COMPRESSOR Temperature 36.8 C (98.2 F) 06/15/2025 7:45 PM OUTSOLE COMPRESSOR Respiratory Rate 17 06/15/2025 7:45 PM OUTSOLE COMPRESSOR Oxygen Saturation 99% 06/15/2025 9:35 PM OUTSOLE COMPRESSOR Inhaled Oxygen Concentration - - Weight 86.2 kg (190 lb) 06/15/2025 7:30 PM OUTSOLE COMPRESSOR Height 165.1 cm (5' 5) 06/15/2025 7:30 PM OUTSOLE COMPRESSOR Body Mass Index 31.62 06/15/2025 7:30 PM OUTSOLE COMPRESSOR Plan of Treatment Upcoming Encounters Date Type Department Care Team (Late st Contact Info) Description 06/21/2025 10:30 AM OUTSOLE COMPRESSOR Hospital Encounter [facility] [address] [place] [phone] Nicki López MD [address] [address] 06/25/2025 10:30 AM OUTSOLE COMPRESSOR [facility] [address] [place] [phone] 06/28/2025 1:00 PM OUTSOLE COMPRESSOR Hospital [facility]counter [facility] [address] [place] [phone] 06/30/2025 9:45 AM OUTSOLE COMPRESSOR [facility] [address] [place] [phone] 07/02/2025 10:30 AM OUTSOLE COMPRESSOR [facility] [address] [place] [phone] 07/05/2025 1:00 PM OUTSOLE COMPRESSOR [facility] [address] [place] [phone] 07/09/2025 10:30 AM OUTSOLE COMPRESSOR [facility] [address] [place] [phone] 07/12/2025 1:00 PM OUTSOLE COMPRESSOR [facility] [address] [place] [phone] 07/16/2025 10:30 AM OUTSOLE COMPRESSOR [facility]ointment [facility] [address] [place] [phone] 07/19/2025 1:00 PM OUTSOLE COMPRESSOR [facility] [address] [place] [phone] 07/23/2025 10:30 AM OUTSOLE COMPRESSOR [facility]ointment [facility] [address] [place] [address] [phone] 07/26/2025 1:00 PM OUTSOLE COMPRESSOR Appointment [facility] [address] [place] [phone] 07/30/2025 10:30 AM OUTSOLE COMPRESSOR Appointment [facility] [address] [place] [phone] 08/02/2025 1:00 PM OUTSOLE COMPRESSOR Appointment [facility] [address] [place] [address] [phone] 08/06/2025 10:30 AM OUTSOLE COMPRESSOR Appointment [facility] [address] [place] [address] [phone] 08/09/2025 1:00 PM OUTSOLE COMPRESSOR Appointment [facility] [address] [place] [address] [phone] 08/13/2025 10:30 AM OUTSOLE COMPRESSOR Appointment [facility] [address] [place] [phone] 08/16/2025 1:00 PM [facility]SOLE COMPRESSOR [facility] [address] [place] [address] [phone] 08/19/2025 Hospital Encounter [facility] [address] [place] [address] Health Maintenance Due Date Last Done Comments HIV SCREENING 2007 HEPATITIS C SCREENING 05/24/2010 DTAP/TDAP/TD VACCINES (1 - Tdap) 2011 HEPATITIS B VACCINE (1 of 3 - 19+ 3-dose series) 2011 PAP SMEAR 2013 HPV VACCINE (1 - 3-dose SCDM series) 2019 DEPRESSION SCREENING 07/01/2024 COVID-19 VACCINE ( - season) 2025 03/07/2024, 06/02/2021, 10/24/2020, Additional history exists INFLUENZA VACCINE (#1) 2025 , 06/02/2021, 05/23/2019, Additional history exists OB-ONE HOUR GLUCOSE 05/13/2025 OB-TDAP CURRENT 05/20/2025 11/11/2006 OB-RHOGAM INJECTION 05/27/2025 Respiratory Syncytial Virus (RSV) Vaccine Pt: or over 60 yrs (1 - Risk 1-dose series) 06/24/2025 ZOSTER VACCINE (1 of 2) 2042 HIB VACCINE Aged Out No longer eligi ble based on patient's age to complete this topic MENINGOCOCCAL (Group B) VACCINE SHARED DECISION-MAKING Aged Out No longer eligible based on patient's age to complete this topic MENINGOCOCCAL GROUPS A/C/Y/W VACCINE Aged Out No longer eligible based on patient's age to complete this topic PNEUMOCOCCAL VACCINE Aged Out No long er eligible based on patient's age to complete this topic Procedures Procedure Name Priority Date/Time Associated Diagnosis Comments IMAGING/RADIOLOGY/X RAY RESULTS ORDER 06/16/2025 7:06 PM OUTSOLE COMPRESSOR NONSTRESS TEST Routine 06/15/2025 10:31 PM OUTSOLE COMPRESSOR CHLAMYDIA AND N. GONORRHOEAE LETTY STAT 06/15/2025 8:58 PM OUTSOLE COMPRESSOR Obesity affecting , antepartum, first trimester (HCC) TRICHOMONAS VAGINALIS LETTY STAT 06/15/2025 8:58 PM OUTSOLE COMPRESSOR Obesity affecting , antepartum, first trimester (HCC) URINALYSIS REFLEX MICROSCOPIC REFLEX CULTURE Routine 06/15/2025 8:20 PM OUTSOLE COMPRESSOR Obesity affecting , antepartum, first trimester (HCC) GLUCOSE - POINT OF CARE Routine 06/15/2025 7:57 PM OUTSOLE COMPRESSOR SONOGRAM - COMPLETE Routine 06/04/2025 2 :25 PM OUTSOLE COMPRESSOR Hypothyroidism affecting in first trimester (HCC) Obesity affecting in second trimester, unspecified obesity type (HCC) History of loop electrosurgical excision procedure (LEEP) of cervix affecting in second trimester (HCC) Encounter for ultrasound to assess growth (HCC) 28 weeks gestation of (HCC) Gestational diabetes requiring insulin (HCC) SONOGRAM - COMPLETE Routine 05/07/2025 1 1:23 AM OUTSOLE COMPRESSOR Diabetes mellitus during in first trimester, unspecified diabetes mellitus type (HCC) 12 weeks gestation of (HCC) Encounter for nuchal translucency testing (HCC) SONOGRAM - COMPLETE Routine 04/09/2025 9 :02 AM CDT Diabetes mellitus during in second trimester, unspecified diabetes mellitus type (HCC) Hypothyroidism affecting in first trimester (HCC) Obesity affecting in second trimester, unspecified obesity type (HCC) Encounter for anatomic survey (HCC) 20 weeks gestation of ([facility]) from Last 3 Months Results * IMAGING/RADIOLOGY/XRAY RESULTS ORDER (06/16/2025 7:06 PM OUTSOLE COMPRESSOR) Anatomical Region Laterality Modality Other Narrative 06/16/2025 7:06 PM OUTSOLE COMPRESSOR Ordered by an unspecified provider. us Scanned Document IMAGING Final Result * NONSTRESS TEST (06/15/2025 10:31 PM OUTSOLE COMPRESSOR) Narrative Pamela Carrillo MD - 06/15/2025 10:31 PM OUTSOLE COMPRESSOR Pamela Carrillo MD 06/16/2025 7:46 AM Non-Stress Test Interpretation Note: Date: 06/15/2025 Time period evaluated: 1937 - 2011 Gestational Age: 30w5d Indication(s): Cramping Baseline: 125 bpm Variability: Moderate Accels: Present Decels: None ; 21:17 due to repositioning of monitor Contractions: Present but not perceived by patient Interpretation: Reactive and reassuring Plan: Appropriate to remove from NST Edyta Vazquez MD us Dexter Erazo MD OB GYNE ORDERABLES Final Result * TRICHOMONAS VAGINALIS LETTY (06/15/2025 8:58 PM OUTSOLE COMPRESSOR) Trichomonas by LETTY NEGATIVE NEGATIVE 06/16/2025 10:42 AM OUTSOLE COMPRESSOR [facility]CRO[facility] Microbiology ENTIRE VAGINA / Unknown Collection / Unknown 06/15/2025 8:58 PM OUTSOLE COMPRESSOR 06/15/2025 9:10 PM OUTSOLE COMPRESSOR Narrative [facility] - 06/16/2025 10:42 AM OUTSOLE COMPRESSOR This test performed by Qualitative real-time Polymerase Chain Reaction (PCR). Dexter Erazo MD LAB - MICROBIOLOGY ORDERABLES Fi nal Result Performing Organization Address [facility] Co de Phone Number [facility] [address] [place] [address], [facility] [phone] * CHLAMYDIA AND N. GONORRHOEAE LETTY (06/15/2025 8:58 PM OUTSOLE COMPRESSOR) Chlamydia by LETTY NEGATIVE NEGATIVE 06/16/2025 10:42 AM OUTSOLE COMPRESSOR [facility] Neisseria gonorrhoeae LETTY NEGATIVE NEGATIVE 06/16/2025 10:42 AM OUTSOLE COMPRESSOR [facility] Microbiology ENTIRE VAGINA / Unknown Collection / Unknown 06/15/2025 8:58 PM OUTSOLE COMPRESSOR 06/15/2025 9:10 PM OUTSOLE COMPRESSOR Narrative [facility] - 06/16/2025 10:42 AM OUTSOLE COMPRESSOR This test performed by Qualitative real-time Polymerase Chain Reaction (PCR). Dexter Erazo MD LAB - MICROBIOLOGY ORDERABLES Fi nal Result Performing Organization Address [facility] de Phone Number [facility] [address] [place] [address], [facility] [phone] * (ABNORMAL) URINALYSIS REFLEX MICROSCOPIC REFLEX CULTURE (06/15/2025 8:20 PM OUTSOLE COMPRESSOR) Color UA Yellow Yellow, Straw 06/15/2025 9:02 PM OUTSOLE COMPRESSOR [facility] Clarity UA Turbid(A) Clear 06/15/2025 9:02 PM OUTSOLE COMPRESSOR [facility] Glucose UA Normal Normal 06/15/2025 9:02 PM OUTSOLE COMPRESSOR [facility] Bilirubin UA Negative Negative 06/15/2025 9:02 PM OUTSOLE COMPRESSOR [facility] Ketone UA 2+(A) Negative 06/15/2025 9:02 PM OUTSOLE COMPRESSOR [facility] Specific [place] UA 1.030 1.005 - 1.030 06/15/2025 9:02 PM OUTSOLE COMPRESSOR [facility] Blood UA 3+(A) Negative 06/15/2025 9:02 PM OUTSOLE COMPRESSOR [facility] pH UA 6.0 5.0 - 8.0 06/15/2025 9:02 PM OUTSOLE COMPRESSOR [facility] Protein UA Trace(A) Negative 06/15/2025 9:02 PM OUTSOLE COMPRESSOR [facility] Urobilinogen UA Normal Normal mg/dL 06/15/2025 9:02 PM OUTSOLE COMPRESSOR [facility] Nitrite UA Negative Negative 06/15/2025 9:02 PM OUTSOLE COMPRESSOR [facility] Leukocyte Esterase UA Negative Negative 06/15/2025 9:02 PM OUTSOLE COMPRESSOR [facility] RBC UA >100(A) 0 - 5 # /hpf 06/15/2025 9:02 PM OUTSOLE COMPRESSOR [facility] WBC UA 6-10(A) 0 - 5 # /hpf 06/15/2025 9:02 PM OUTSOLE COMPRESSOR [facility] Bacteria UA Trace(A) None Seen 06/15/2025 9:02 PM OUTSOLE COMPRESSOR [facility] Squamous Epithelial Cells 0-2 0 - 5 /hpf 06/15/2025 9:02 PM OUTSOLE COMPRESSOR [facility] Mucus UA 3+ /LPF 06/15/2025 9:02 PM OUTSOLE COMPRESSOR [facility] Amorphous Crystals Occasional(A ) None seen /hpf 06/15/2025 9:02 PM OUTSOLE COMPRESSOR [facility] Reflex Status Culture not indicated 06/15/2025 9:02 PM OUTSOLE COMPRESSOR [facility] Urine URINE SPECIMEN OBTAINED BY CLEAN CATCH PROCEDURE / Unknown Collection / Unknown 06/15/2025 8:20 PM OUTSOLE COMPRESSOR 06/15/2025 8:50 PM OUTSOLE COMPRESSOR Dexter Erazo MD LAB - URINALYSIS ORDERABLES Nelia l Result [facility] [address] [place], [place] [id number] * GLUCOSE - POINT OF CARE (06/15/2025 7:57 PM OUTSOLE COMPRESSOR) Glucose WB/POC 78 70 - 99 mg/dL 06/15/2025 8:03 PM OUTSOLE COMPRESSOR [facility] Specimen Type Arterial/C apillary 06/15/2025 8:03 PM OUTSOLE COMPRESSOR [facility] Blood BLOOD SPECIMEN / Unknown 06/15/2025 7:57 PM OUTSOLE COMPRESSOR 06/15/2025 8:03 PM OUTSOLE COMPRESSOR us Dexter Erazo MD LAB - POINT OF CARE ORDERABLES F inal Result [facility] [address] [place] [address] * Sonogram - Complete (06/04/2025 2:25 PM OUTSOLE COMPRESSOR) Only the most recent of3 resultswithin the time period is included. Linked Results Indication ======== anatomy evaluation Gestational diabetes mellitus in , insulin controlled History of LEEP Velamentous cord insertion History ====== OB History 2. Para 0 [id number] 1. miscarriage 2023 Lab Tests Test Date Result NIPT Low risk Maternal Assessment Physical Exam Height 165 cm, 5 ft 5 in. Weight 88 kg, 195 lb. Initial weight 88 kg, 194 lb. BMI 32.45 kg/m . Initial BMI 32.28 kg/m . Weight gain 0 kg, 1 lb Method ====== Transabdominal ultrasound. View: Sufficient ========= Harley . Number of fetuses: 1 Dating ====== Date Details Gest. age AARON LMP 11/12/2024 29 w + 1 d 08/19/2025 Stated AARON 29 w + 1 d 08/19/2025 U/S 06/04/2025 based upon AC, BPD, Femur, HC 29 w + 4 d 08/16/2025 Assigned dating based on the LMP, selected on 02/10/2025 29 w + 1 d 08/19/2025 General Evaluation Cardiac activity present. FHR 136 bpm. Presentation: cephalic Placenta: Placental site: posterior Umbilical cord: Insertion site: velamentous insertion Amniotic fluid: Amount of AF: normal. MVP 5.5 cm. FERMIN 18.7 cm. Q1 4.8 cm, Q2 5.5 cm, Q3 4.4 cm, Q4 4.0 cm Biometry BPD 73.9 mm 29w 5d 54% Hadlock HC 273.9 mm 29w 6d 39% Hadlock AC 249.7 mm 29w 1d 45% Hadlock Femur 55.8 mm 29w 3d 41% Hadlock Humerus 50.3 mm 29w 3d 52% Rafael HC / AC 1.10 Weight Calculation: EFW 1,378 g 44% Hadlock EFW (lb,oz) 3 lb 1 oz EFW by Hadlock ([id number]) appropriate Growth Overview Exam date GA BPD (mm) HC (mm) AC (mm) FL (mm) HL (mm) EFW (g) 03/10/2025 16w 6d 36.8 68% 128.9 24% 118.3 73% 26.5 86% 204 88% 04/09/2025 21w 1d 49.9 47% 189.2 43% 166.7 61% 37 63% 34.7 72% 441 71% 05/07/2025 25w 1d 60.8 28% 227.4 17% 210.4 55% 48.2 68% 44.6 83% 837 62% 06/04/2025 29w 1d 73.9 54% 273.9 39% 249.7 45% 55.8 41% 50.3 52% 1378 44% Anatomy The following structures appear normal: Abdomen Stomach. Kidneys. Bladder. sex: female. Impression ========= Single, live, intrauterine at 29w1d The size is appropriate No major malformations were seen within the limits of ultrasound The amniotic fluid volume is normal Comment ======== ultrasound alone cannot detect all structural, genetic, or functional , placental, or maternal abnormalities Follow-up ======== Ultrasound in three weeks to begin twice weekly NST and weekly BPP growth assessment in four weeks Coding ====== Diagnoses O24.419: Gestational diabetes mellitus in , unspecified control Z36.3: Encounter for screening for malformations O34.43: Maternal care for other abnormalities of cervix Procedures 95079: US Preg Uterus Follow Up [employer] PACS Anatomical Region Laterality Modality Other 06/04/2025 2:25 PM OUTSOLE COMPRESSOR us Ashwin Logan MD [facility] ORDERABLES Edited Result - Final from Last 3 Months [facility] Channel Marketing Specialist Relationship Specialty Start Date End Date Unknown, Provider PCP - General 02/01/25
--- OUTSIDE RECORDS SUMMARY | 2025-06-18 11:08 | XMS_ITS | Encounter Summary ---
Author Organization [facility] Address [address] [place] [address] Phone Care Team Providers Care Distribution Operations Supervisor Name Role Phone Unknown, Notinfile Primary Care [...] CDT Gender Identity Female 05/27/2021 3:04 PM PRODUCTION DISPATCHER Sexual Orientation Straight 05/27/2021 3: 04 PM PRODUCTION DISPATCHER documented as of this encounter Plan of Treatment Not on file documented as of this encounter Procedures Procedure Name Priority Date/Time Associated Diagnosis Comments SCAN - LABS 09/26/2018 documented in this encounter Results * SCAN - LABS (09/26/2018) us Provider Scanning Final Result documented in this encounter Visit Diagnoses Not on filedocumented in this encounter Care Teams Distribution Operations Supervisor Relationship Specialty Start Date End Date Unknown, Lisa PCP - General 06/13/22 documented as of this encounter
--- OUTSIDE RECORDS SUMMARY | 2025-06-18 11:08 | XMS_ITS | Clinical Summary ---
Author Organization [facility] Address [address] [place] [address] Care Team Providers Care Facilities Painter Name Role Phone Unknown, Notinfile Primary Care [...] 05/30/2021 Assessment & Plan (06/18/2022 7:08 PM KETTLE ROOM HELPER): FNA x 2 benign Stable in size Discussed care home follow up of benign and stable thyroid [...] intervention Assessment & Plan (05/30/2021 3:42 PM KETTLE ROOM HELPER): Will obtain outside images to review Plan FNA 06/13 if needed and after images are reviewed Primary hypothyroidism 05/30/2021 Assessment & Plan (05/30/2021 3:43 PM KETTLE ROOM HELPER): Normal TFT Continue Synthroid dose Hair loss [...] CDT Gender Identity Female 05/27/2021 3:04 PM KETTLE ROOM HELPER Sexual Orientation Straight 05/27/2021 3: 04 PM KETTLE ROOM HELPER Last Filed Vital Signs Vital Sign Reading Time Taken Comments Blood Pressure 112/79 06/18/2022 2:42 PM KETTLE ROOM HELPER Pulse 94 06/18/2022 2:42 PM KETTLE ROOM HELPER Temperature 36.7 C (98 F) 06/18/2022 2:42 PM KETTLE ROOM HELPER Respiratory Rate - - Oxygen Saturation - - Inhaled Oxygen Concentration - - Weight 88 kg (194 lb) 06/18/2022 2:42 PM KETTLE ROOM HELPER Height 165.1 cm (5' 5) 06/18/2022 2:42 PM KETTLE ROOM HELPER Body Mass Index 32.28 06/18/2022 2:42 PM KETTLE ROOM HELPER Plan of Treatment Not on file Insurance [employer] Care Teams Facilities Painter Relationship Specialty Start Date End Date Unknown, Notinfile PCP - General 06/13/22
== END 2025-06-18 10:37 | disposition home or self-care (01) ==
LOC: ANHLAB 10:37
PROVIDERS: Visit Provider Obstetrics & Gynecology
DX: Z34.90 Encounter for supervision of normal pregnancy, unspecified, unspecified trimester (principal); Z3A.00 Weeks of gestation of pregnancy not specified
CPT/HCPCS: 36415; 85027; 85055